=== PATIENT | female | born 1995 | race Caucasian/White ===

== ENCOUNTER 2021-11-10 22:12 | Emergency (ER) | payer MEDICAID, SELFPAY ==
[2021-11-10 22:26] VITALS: BP 138/77; PULSE 88; RESP 18; TEMP 36.6; O2SAT 100; BMI 28.0
[2021-11-10 22:40] LABS: Appearance Urine CLEAR; Color Urine YELLOW; Glucose Urine UA NEG (NEG); Leukocyte Esterase Urine 1+ (NEG); Nitrite Urine NEG (NEG); Specific Gravity - Urine 1.025 (1.005-1.025); UACC Culture Trigger YES; Urine Blood NEG (NEG); Urine Ketones NEG (NEG); Urine Protein NEG (NEG-TRACE)
[2021-11-10 22:48] LABS: UPreg QC Valid YES; Urine Pregnancy POSITIVE (NEGATIVE)
[2021-11-10 22:55] LABS: Bacteria Urine 2+ /LPF; Squamous Epithelial Cell Urine 4+ /LPF; UACC CULT YES
--- NOTE | 2021-11-10 23:35 | ED.NAVMDI ---
HPI - Nausea/Vomiting/Diarrhea General Chief complaint: Nausea/Vomiting/Diarrhea Stated complaint: stomach pain, cant hold food down- constant Time Seen by Provider: 11/10/21 22:57 Source: patient Mode of arrival: ambulatory Limitations: no limitations History of Present Illness HPI Narrative: Patient is a 26 year old female presenting to the emergency department today with nausea. Patient states that she has been having a difficult time keeping food down and things do not seem appetizing. Patient denies any dizziness, lightheadedness, abdominal pain, vomiting, fever, chills, blurry vision, double vision, loss of vision, chest pain, difficulty breathing, shortness of breath, back pain, night sweats, pain with urination, increased urinary frequency, increased urinary urgency, blood in her urine or stool, syncope or a near syncopal episode, recent trauma or falls, bowel incontinence, bladder incontinence, bowel retention, bladder retention, or any other complaints at this time. Patient states that her last menstrual cycle was early Febuary and she is concerned she may be . MD elicited complaint: nausea Onset (ago): day(s) Associated nausea: Yes Associated abdominal pain: No Location of pain: none Exacerbating factors: none Relieving factors: none Related Data Previous Rx's Medication Instructions Recorded ondansetron 4 mg disintegrating 4 mg PO Q8H 3 Days #9 tab 11/10/21 tablet Allergies Allergy/AdvReac Type Severity Reaction Status Date / Time banana [BANANA] Allergy Severe ANAPHYLAXIS Verified 11/10/21 22:26 rissa [RISSA] Allergy Mild HIVES Verified 11/10/21 22:26 pineapple [PINEAPPLE] Allergy Mild HIVES Verified 11/10/21 22:26 PEANUT BUTTER Allergy Severe ANAPHYLAXIS Uncoded 11/10/21 22:26 pineapple, rissa, banana Allergy Unknown hives Uncoded 11/10/21 22:26 Review of Systems Constitutional: Constitutional: Reports no additional constitutional complaints, Denies chills, Denies fever(s) and Denies night sweats Eyes: Eyes: Reports no additional eye complaints, Denies blurry vision, Denies change in vision, Denies diplopia, Denies eye discharge, Denies loss of vision and Denies eye pain ENT: Denies dizziness Cardiovascular: Cardiovascular: Reports no additional cardiovascular complaints, Denies chest pain, Denies lightheadedness, Denies Loss of Consciousness and Denies dyspnea Respiratory: Respiratory: Reports no additional respiratory complaints and Denies dyspnea Gastrointestinal: Gastrointestinal: Reports nausea Genitourinary: Genitourinary: Denies hematuria, Denies urinary frequency, Denies dysuria, Denies urinary incontinence, Denies urinary hesitancy and Denies urinary urgency Musculoskeletal: Musculoskeletal: Reports no additional musculoskeletal complaints, Denies numbness and Denies tingling Neurologic: Denies dizziness, Denies loss of vision, Denies numbness and Denies tingling Psychiatric: Psychiatric: Reports no additional psychiatric complaints Endocrine: Endocrine: Reports no additional endocrine complaints Hematologic/Lymphatic: Hematologic/Lymphatic: Reports no additional hematologic/lymphatic complaints Allergic/Immunologic: Allergic/Immunologic: Reports no additional allergic/immunologic complaints PMFSH Past Medical History Attestation statement: The following information was validated with the patient. Source: old records reviewed Social History Social History Advance Directives: No Physical Exam Vital Signs: Vital Signs: Last Vital Signs Temp 97.8 F 11/10/21 22:26 Pulse 88 11/10/21 22:26 Resp 18 11/10/21 22:26 BP 138/77 11/10/21 22:26 Pulse Ox 100 11/10/21 22:26 BMI result Body Mass Index 28.0 Const: General: cooperative, no acute distress, alert and awake Nutritional Appearance: well nourished Orientation/consciousness: patient oriented x3 Limitations: no limitations HEENT: Head: Yes normal to inspection and Yes atraumatic Ears: hearing grossly normal bilaterally and external ears normal General nose exam: Normal external nose present, no nasal discharge noted and no epistaxis Face and sinus: Yes normal facial exam, No abrasion and No laceration Mouth: Normal oral and palatal mucosa present, no drooling and no muffled voice Eyes: General: appearance normal, both eyes and all related structures Periorbital: periorbital findings normal Eyelids: Yes eyelids normal Conjunctivae: conjunctivae normal Pupils: Equal, round and reactive pupils present EOM: EOMs intact bilaterally Neck: Neck: Yes normal visual inspection, Yes full ROM and Yes no lymphadenopathy Chest: Chest palpation & inspection: normal inspection of the chest Resp: Effort & Inspection: normal respiratory effort and able to speak in complete sentences Auscultation: clear to auscultation bilaterally Cardio: Rate: regular rate Rhythm: regular rhythm GI: Inspection: Yes normal to inspection Palpation (GI): Soft to palpation, not firm, nontender, no guarding and not rigid Neuro: General: patient oriented x3 and moves all extremities Cranial nerves: Yes Equal, round and reactive pupils present Cognition (Neuro): normal cognition Motor exam (neuro): 5/5 motor strength present throughout Sensory Exam: Normal double simultaneous stimulation for sensation Coordination: [id number] test normal Extrem: General: Yes normal to inspection, Yes full ROM and Yes capillary refill normal Psych: Appearance: grossly normal Mental Status: mental status grossly normal Affect: normal affect Attitude: cooperative Thought process: Normal thought process present Thought content: Normal thought content present Insight: Good insight present (Psych) MDM - Nausea/Vomiting/Diarrhea MDM Narrative Medical decision making narrative: Patient is a 26 year old female presenting to the emergency department today with nausea. Patient's physical exam was unremarkable. Patient's urine showed an acute . I explained my physical exam findings as well as all test results to the patient. I answered all questions asked by the patient. I stressed the importance of the patient taking her medication as prescribed. I stressed the importance of the patient following up with her OBGYN and primary care provider. I stressed the importance of the patient returning to the emergency department immediately if her symptoms were to worsen or if she were to develop any dizziness, shortness of breath, difficulty breathing, chest pain, blurry vision, loss of vision, nausea, vomiting, abdominal pain, fever, chills, back pain, or any other complaints. Patient verbalized agreement and understanding with this treatment plan and discharge. Differential Diagnosis Differential diagnosis: Unlikely traveler's diarrhea () Medical Records Attestation: I reviewed the patient's medical records. Lab Data Attestation: I reviewed the patient's lab results. Labs: Lab Results 11/10/21 11/10/21 Range/Units 22:35 22:35 Urine Color YELLOW Urine Appearance CLEAR Urine pH 6.0 (5.0-8.0) Ur Specific [place] 1.025 (1.005-1.025) Urine Protein NEG (NEG-TRACE) MG/DL Urine Glucose (UA) NEG (NEG) MG/DL Urine Ketones NEG (NEG) MG/DL Urine Blood NEG (NEG) Urine Nitrite NEG (NEG) Ur Leukocyte Esterase 1+ H (NEG) Urine RBC 1-4 (0) /HPF Urine WBC 10-14 H (0-4) /HPF Ur Squamous Epith Cells 4+ /LPF Urine Bacteria 2+ /LPF Urine Test POSITIVE H (NEGATIVE) Discharge Plan Discharge Clinical Impression: Patient Disposition: Home, Self-Care Instructions: at 7 to 10 Weeks (ED) Additional Instructions: Follow up with your primary care provider. Return to the emergency department immediately if your symptoms worsen or if you develop any dizziness, shortness of breath, difficulty breathing, chest pain, blurry vision, loss of vision, nausea, vomiting, abdominal pain, fever, chills, back pain, or any other complaints. Prescriptions: New ondansetron 4 mg tablet,disintegrating 4 mg PO Q8H 3 Days Qty: 9 0RF Referrals: Pedro Luis Buckner MD [Primary Care Provider] - 2 days Stand Alone Forms: Work/School Release Print Language: Maltese
[2021-11-10] MEDS: Ondansetron ODT 4 MG TAB.RAPDIS TRANSLINGU (23:52)
== END 2021-11-11 00:04 | disposition home or self-care (01) ==
PROVIDERS: Emergency Provider Internal Medicine; PCP Pediatrics
DX: O21.9 Vomiting of pregnancy, unspecified (principal); R19.7 Diarrhea, unspecified; R10.9 Unspecified abdominal pain; Z3A.08 8 weeks gestation of pregnancy; Z79.899 Other long term (current) drug therapy
CPT/HCPCS: 81001; 81025; 87086; 99283

== ENCOUNTER 2021-12-11 08:35 | Emergency (ER) | payer OTHER, SELFPAY ==
--- NOTE | 2021-12-11 09:08 | ED_ITS ---
HPI - General Adult General Chief complaint: Abdominal Pain Stated complaint: abd pain Time Seen by Provider: 12/11/21 08:49 Source: patient Limitations: no limitations History of Present Illness HPI narrative: This is a 26-year-old female complains of pain in her lower abdomen which began today. The patient's last menstrual period was September 15 and she is not sure if she is . She has had some nausea, denies breast soreness. She has had prior pregnancies. She denies any vomiting. She denies any constipation or diarrhea. She denies any UTI symptoms such as dysuria or urinary frequency. She denies fever. Pain is not worse with turning over or walking Related Data Previous Rx's Medication Instructions Recorded ondansetron 4 mg disintegrating 4 mg PO Q8H 3 Days #9 tab 11/10/21 tablet cephalexin 500 mg capsule 500 mg PO TID #10 cap 12/11/21 prenat.vits,chandler,svx-pzqs-wizdq 1 tab PO DAILY #30 tab 12/11/21 Allergies Allergy/AdvReac Type Severity Reaction Status Date / Time banana [BANANA] Allergy Severe ANAPHYLAXIS Verified 11/10/21 22:26 rissa [RISSA] Allergy Mild HIVES Verified 11/10/21 22:26 pineapple [PINEAPPLE] Allergy Mild HIVES Verified 11/10/21 22:26 PEANUT BUTTER Allergy Severe ANAPHYLAXIS Uncoded 11/10/21 22:26 pineapple, irssa, banana Allergy Unknown hives Uncoded 11/10/21 22:26 Review of Systems Review of Systems: Yes all other systems are reviewed and are negative Constitutional: Constitutional: Reports as per HPI and Denies fever(s) Eyes: Eyes: Reports as per HPI and Reports no additional eye complaints ENT: Reports system reviewed and no additional complaints, except as documented, Reports as per HPI, Denies nasal congestion, Denies nasal discharge and Denies sore throat Cardiovascular: Cardiovascular: Reports as per HPI, Denies chest pain and Denies dyspnea Respiratory: Respiratory: Reports as per HPI, Denies cough and Denies dyspnea Gastrointestinal: Gastrointestinal: Reports as per HPI, Reports abdominal pain, Denies diarrhea, Reports nausea and Denies vomiting Genitourinary: Genitourinary: Reports as per HPI, Denies abnormal vaginal bleeding, Denies hematuria, Denies urinary frequency and Denies dysuria Musculoskeletal: Musculoskeletal: Reports no additional musculoskeletal complaints and Denies numbness Integumentary/Breasts: Skin/Breast: Reports as per HPI and Denies rash Neurologic: Reports as per HPI, Denies focal weakness and Denies numbness Psychiatric: Psychiatric: Reports no additional psychiatric complaints and Reports as per HPI Endocrine: Endocrine: Reports no additional endocrine complaints and Reports as per HPI Hematologic/Lymphatic: Hematologic/Lymphatic: Reports no additional hematologic/lymphatic complaints, Reports as per HPI and Reports other (No peripheral edema) ON LICENSE OF [facility] Past Medical History Medical History (Updated 12/11/21 @ 11:21 by Jose Stuart MD) No known health problems Social History Social History Advance Directives: No Advance Directives Information Provided: Yes Patient : Yes Physical Exam ED Vital Signs: Vital Signs - 24 hr 12/11/21 09:44 Temperature 98.7 F Pulse Rate 97 Respiratory Rate 18 Blood Pressure 106/61 Pulse Oximetry 96 BMI result Body Mass Index 27.2 Const General: no acute distress Orientation/consciousness: patient oriented x3 HENMT Head: Yes normal to inspection General nose exam: Normal external nose present Mouth: moist mucous membranes Throat: Yes posterior oropharynx normal, Yes tonsils normal and Yes uvula midline Eyes Eyelids: Yes eyelids normal Conjunctivae: conjunctivae normal Pupils: Equal, round and reactive pupils present Neck Neck: Yes supple Resp Effort & Inspection: normal respiratory effort Auscultation: clear to auscultation bilaterally Cardio Rate: regular rate Rhythm: regular rhythm Heart sounds: S1 normal heart sound present, S2 normal heart sound present, no gallops, no murmurs and no rubs GI Other: Patient sits up easily, does not appear to have any significant discomfort. Inspection: Yes normal to inspection and No distended Palpation (GI): Soft to palpation and Tenderness to palpation present (GI) (Minimally tender right lower quadrant) Auscultation: normal bowel sounds Skin General skin exam: other (Warm and dry) Neuro General: patient oriented x3 and CN's II-XI intact bilaterally Cranial nerves: Yes Equal, round and reactive pupils present Extrem General: Yes no pedal edema Psych Affect: normal affect Attitude: cooperative Course Course Course Narrative: Bedside ED ultrasound was done and the patient did have an intrauterine with a very active fetus, bouncing around, normal heart rate of 144, no evidence of any fluid collection in the adnexae. Patient likely has discomfort secondary to . Patient suspected she might be based upon her missed period (actually the patient was here at the end of October and diagnosed with at that time, but she did not disclose this initially) and given the ultrasound finding, appears to be in 2nd trimester. Given the findings, patient can follow up with her OBGYN for formal ultrasound, do not suspect ectopic since we have confirmed an IUP. No clinical evidence of appendicitis the patient upon re-evaluation stated that she did have a zoom consultation with her call center support consultant yesterday, is on vitamins, notes that her abdominal pain already feels better, on re-examination has no significant tenderness. The patient is scheduled for a in-person visit with her OBGYN and is to have ultrasound and labs done. The patient has borderline evidence for UTI, though she has no UTI symptoms, will treat with Keflex, urine culture sent Medical Decision Making Lab Data Labs: Lab Results 12/11/21 12/11/21 Range/Units 09:25 09:25 Urine Color YELLOW Urine Appearance HAZY Urine pH 6.5 (5.0-8.0) Ur Specific [place] 1.025 (1.005-1.025) Urine Protein NEG (NEG-TRACE) MG/DL Urine Glucose (UA) NEG (NEG) MG/DL Urine Ketones NEG (NEG) MG/DL Urine Blood NEG (NEG) Urine Nitrite NEG (NEG) Ur Leukocyte Esterase 1+ H (NEG) Urine RBC 0 (0) /HPF Urine WBC 5-9 H (0-4) /HPF Ur Squamous Epith Cells 4+ /LPF Ur Renal Epithelial Cell TRACE /LPF Urine Bacteria 2+ /LPF Urine Test POSITIVE H (NEGATIVE) Discharge Plan Discharge Clinical Impression: , UTI (urinary tract infection) Patient Disposition: Home, Self-Care Instructions: (ED), Urinary Tract Infection in (ED) Additional Instructions: Follow-up with your OBGYN. Take vitamins as prescribed. Return for any worsened symptoms such as progressive abdominal pain, fever, vomiting. Take the antibiotics as prescribed for urinary tract infection. Prescriptions: New prenat.vits,chandler,ewa-muae-onorz Tablet 1 tab PO DAILY Qty: 30 0RF cephalexin 500 mg capsule 500 mg PO TID Qty: 10 0RF No Action ondansetron 4 mg tablet,disintegrating 4 mg PO Q8H 3 Days Qty: 9 0RF Stand Alone Forms: Work/School Release Interventions: ED Discharge Assessment Last Done: 12/11/21 10:46 Discharge Date/Time: 12/11/21 10:54
[2021-12-11 09:40] LABS: Appearance Urine HAZY; Color Urine YELLOW; Glucose Urine UA NEG (NEG); Leukocyte Esterase Urine 1+ (NEG); Nitrite Urine NEG (NEG); PH 6.5 (5.0-8.0); Specific Gravity - Urine 1.025 (1.005-1.025); UACC Culture Trigger YES; Urine Blood NEG (NEG); Urine Ketones NEG (NEG); Urine Protein NEG (NEG-TRACE)
[2021-12-11 09:41] LABS: UPreg QC Valid YES; Urine Pregnancy POSITIVE (NEGATIVE)
[2021-12-11 09:44] VITALS: BP 106/61; PULSE 97; RESP 18; TEMP 37.1; O2SAT 96; BMI 27.2
[2021-12-11 09:49] LABS: Squamous Epithelial Cell Urine 4+ /LPF
[2021-12-11 09:50] LABS: Bacteria Urine 2+ /LPF
[2021-12-11 09:51] LABS: RBC Urine 0 /HPF (0); Renal Epithelial Cells Urine TRACE /LPF
[2021-12-11] MEDS: cephALEXin 500 MG CAPSULE PO (10:37)
== END 2021-12-11 10:54 | disposition home or self-care (01) ==
PROVIDERS: Emergency Provider Emergency Medicine; PCP Pediatrics
DX: O23.42 Unspecified infection of urinary tract in pregnancy, second trimester (principal); R10.30 Lower abdominal pain, unspecified; N39.0 Urinary tract infection, site not specified; Z3A.00 Weeks of gestation of pregnancy not specified; Z79.899 Other long term (current) drug therapy
CPT/HCPCS: 81001; 81025; 87086; 99283

== ENCOUNTER 2022-01-12 12:23 | Emergency (ER) | payer OTHER, SELFPAY ==
[2022-01-12 13:05] VITALS: BP 99/56; PULSE 81; RESP 19; TEMP 36.6; O2SAT 98; BMI 27.6
[2022-01-12 13:53] LABS: Appearance Urine HAZY; Color Urine YELLOW; Glucose Urine UA NEG (NEG); Leukocyte Esterase Urine TRACE (NEG); Nitrite Urine NEG (NEG); Urine Blood NEG (NEG); Urine Ketones 5 MG/DL (NEG); Urine Protein TRACE MG/DL (NEG-TRACE)
[2022-01-12 13:54] LABS: UPreg QC Valid YES; Urine Pregnancy POSITIVE (NEGATIVE)
[2022-01-12 14:09] LABS: Squamous Epithelial Cell Urine 2+ /LPF
[2022-01-12 14:12] LABS: RBC Urine 0 /HPF (0)
[2022-01-12 14:13] LABS: Bacteria Urine 1+ /LPF; Mucus Urine 2+ /LPF
[2022-01-12 14:17] LABS: COVID-19 Test Negative (Negative); IDNOW Serial# 16C4AD1C; Influenza A Negative (Negative); Influenza B2 Negative (Negative)
== END 2022-01-12 20:47 | disposition left against medical advice (07) ==
PROVIDERS: Emergency Provider Emergency Medicine; PCP Pediatrics
DX: O26.892 Other specified pregnancy related conditions, second trimester (principal); R51.9 Headache, unspecified; Z3A.17 17 weeks gestation of pregnancy; Z20.822 Contact with and (suspected) exposure to COVID-19
CPT/HCPCS: 81001; 81025; 87086; 87088; 87186; 87502; 87635; 99283

== ENCOUNTER 2022-02-07 15:13 | Emergency (ER) | payer OTHER, SELFPAY ==
--- NOTE | ~2022-02-07 | US_ITS ---
EXAMINATION: US OBSTETRICAL ULTRASOUND CLINICAL INFORMATION: , fall with abdominal pain. COMPARISON: None. LMP: 09/15/2021. Gestational age by maternal dates is 20 weeks 5 days. Estimated date of delivery by maternal dates is 06/22/2022. TECHNIQUE: Routine transabdominal imaging of pelvis is performed. FINDINGS: There is a single intrauterine gestational sac with visible yolk sac, embryo/fetus, and cardiac activity. There is no significant subchorionic hemorrhage or hematoma. HR: 158 beats per minute. anatomy: There is normal visualization of kidneys, bladder, stomach and a four-chamber heart. There is trace fullness in the kidneys but within normal range. measurements: Biparietal diameter measures 4.32 cm corresponding 19 weeks 1 day, Occipital frontal diameter measures 5.88 seen corresponding 20 weeks 2 days, Head circumference measures 16.47 cm corresponding to 19 weeks 2 days, Abdominal circumference measures 14.45 cm corresponding to 19 weeks and 6 days. Femoral length measures 3.01 cm corresponding to 19 weeks 3 days. The composite ultrasound gestational age based on measurements is 19 weeks 3 days. Based on ultrasound measurements the MARI is 07/01/2022 The cervix is closed measuring 3.50 cm in length. No subchorionic bleed seen. MATERNAL ADNEXA: The right maternal ovary measures 2.40 x 1.82 x 1.11 cm. It appears unremarkable. The left maternal ovary is not visualized There is no significant maternal adnexal mass. No maternal pelvic ascites. US/US OB pelvic and transvaginal IMPRESSION: 1. Single intrauterine gestation with ultrasound gestational age of 19 weeks and 3 days +/- 4 days. 2. Estimated date of delivery is 07/01/2022 +/- 4 days. 3. No maternal adnexal mass or pelvic ascites.
[2022-02-07 15:22] VITALS: BP 99/48; PULSE 105; RESP 20; TEMP 36.6; O2SAT 98; BMI 28.5
--- NOTE | 2022-02-07 15:57 | ED.ABDPAIN ---
HPI - Abdominal Pain General Chief Complaint: Abdominal Pain Stated Complaint: 20 wks preg/Fall/abd pain Time Seen by Provider: 02/07/22 15:31 Source: patient Mode of arrival: ambulatory Limitations: no limitations History of Present Illness HPI narrative: Confer old female A2 currently around 20 weeks complaining of abdominal pain status post trip and fall onto her abdomen. Patient tells me she was with her other children playing outside, she tripped and fell right onto her abdomen and into a kiddie pool. Patient reports pain to the abdomen particularly the left upper quadrant, patient tells me that she usually feels her baby moving often however since the injury she has not felt movement. She reports the pain is 7/10, constant. She denies any vaginal bleeding, nausea, vomiting, fevers, chills, chest pain, shortness of breath. Patient is followed by [facility]BGY[facility]ina HEALY elicited complaint: abdominal pain Pertinent past history: none Onset (ago): hour(s) (2) Pain Consistency: constant Location: LLQ Severity: moderate Pain scale (0-10): 7 Quality: cramping Radiation: none Migration to: no migration Exacerbating factors: nothing Relieving factors: nothing Associated symptoms: denies other symptoms Related Data Previous Rx's Medication Instructions Recorded ondansetron 4 mg disintegrating 4 mg PO Q8H 3 days #9 tabs 11/10/21 tablet cephalexin 500 mg capsule 500 mg PO TID #10 caps 12/11/21 prenat.vits,chandler,puq-doxw-kktwm 1 tab PO DAILY #30 tabs 12/11/21 Allergies Allergy/AdvReac Type Severity Reaction Status Date / Time banana [BANANA] Allergy Severe ANAPHYLAXIS Verified 11/10/21 22:26 rissa [RISSA] Allergy Mild HIVES Verified 11/10/21 22:26 pineapple [PINEAPPLE] Allergy Mild HIVES Verified 11/10/21 22:26 PEANUT BUTTER Allergy Severe ANAPHYLAXIS Uncoded 11/10/21 22:26 pineapple, rissa, banana Allergy Unknown hives Uncoded 11/10/21 22:26 Review of Systems Review of Systems Constitutional : No Weight loss, No Fever, No Chills, No Fatigue, No Malaise ENT/Mouth : No sore throat, No Rhinorrhea Eyes: No Eye Pain, No Swelling, No Redness Cardiovascular : No Chest Pain, No SOB, No Dyspnea on Exertion, No Orthopnea, No Edema, No Palpitations Respiratory : No Cough, No Sputum, No Wheezing Gastrointestinal : No Nausea, No Vomiting, No Diarrhea, No Constipation, No abdominal Pain, No Hematochezia, No Melena Genitourinary : No Dysuria, No Urinary Frequency, No Hematuria, Musculoskeletal : No joint pain, No Myalgias, No Joint Swelling Skin : No Skin Lesions, No rash Neuro : No Weakness, No Numbness, No Dizziness, No Headache Psych : No Anxiety/Panic, No Depression All other systems reviewed and are negative [facility] Past Medical History Attestation statement: The following information was validated with the patient. Source: old records reviewed and nursing notes reviewed Medical History No known health problems Social History Social History Advance Directives: No Advance Directives Information Provided: No Physical Exam ED Vital Signs: Vital Signs - 24 hr 02/07/22 15:22 02/07/22 16:32 Temperature 97.8 F 98.2 F Pulse Rate 105 H 94 Respiratory Rate 20 18 Blood Pressure 99/48 L 118/74 Pulse Oximetry 98 98 Oxygen Delivery Method Room Air Room Air BMI result Body Mass Index 28.5 VSS Appearance: Alert.? Oriented X3.? No acute distress.? Head: Normocephalic, atraumatic, no step-offs or deformities Eyes: Pupils equal, round and reactive to light.? ENT: Pharynx normal.? Neck: Normal inspection.? Neck supple.? CVS: Normal heart rate and rhythm.? Pulses normal.? Respiratory: No respiratory distress.? Breath sounds normal.? Abdomen: Soft and + slightly tender to LUQ no evidence of acute trauma.? Skin: Skin warm and dry.? Normal skin color.? Normal skin turgor.? Extremities: No lower extremity edema.? No calf ttp. 5/5 strength to bilateral upper and lower extremities Back: No midline tenderness, no C-spine tenderness, full range of motion, no CVA tenderness bilaterally Neuro: Oriented X 3.? No motor deficit.? No sensory deficit. CN 2-12 intact Course Reevaluation(s) Reevaluation #1: US shows normal fetus, normal placenta, no subchorionic bleed, heart rate 158. This was interpreted by we are in down time therefore images/ reports not transferring over. Time: 16:13 Reevaluation #2: CBC appears to be around patient's baseline. No acute electrolyte abnormalities require intervention. Urine clean. COVID negative. Time: 18:06 Reevaluation #3: Calling to discuss this case with [facility]. However upon my re-examination patient is no longer tender on palpation, feeling better. Patient appears much better. Time: 18:50 Additional Reevaluation(s): Spoke to Dr. Zimmerman discuss this case with him. He tells me that she is currently 20 weeks and previable, he recommends that if she starts experiencing severe abdominal pain or vaginal bleeding to report to the emergency department immediately. At this time patient will be discharged home with prompt PCP and OBGYN follow-up. Educated her on worrisome signs and symptoms and when to return. At this time I feel comfortable discharge home MDM - Abdominal Pain MDM Narrative Medical decision making narrative: 1603 26 yo f 20 weeks preg presents w/ trip and fall onto abdomen. A2. Followed by [facility]. Reports she hasnt felt movment since injury Physical examination significant for slight tenderness to the left upper quadrant, no evidence of trauma on exam. I immediately obtain heart tones on this patient around [id number]. Located in the left lower quadrant right above the pubic symphysis. Patient is slightly anxious and tearful. Ultrasound immediately called to the bedside. Plan at this time is basic labs, hCG, ultrasound, heart tones. Will rule out demise. Medical Records Attestation: I reviewed the patient's medical records. Lab Data Attestation: I reviewed the patient's lab results. Result diagrams: 02/07/22 17:03 02/07/22 16:35 Labs: Lab Results 02/07/22 02/07/22 02/07/22 Range/Units 16:35 16:35 16:36 WBC (4.8-10.8) X10*3/uL RBC (4.20-5.50) X10*6/uL Hgb (12.0-16.0) g/dl Hct (37.0-47.0) % MCV (80.0-98.0) fL MCH (27.0-33.0) pg MCHC (31.0-35.0) g/dl RDW (11.0-16.0) % Plt Count (160-400) X10*3/uL MPV (9.4-12.3) fL Immature Gran % (Auto) (0.0-0.4) % Neut % (Auto) (45-73) % Lymph % (Auto) (20-40) % [place] % (Auto) (2-11) % Eos % (Auto) (0-4) % Baso % (Auto) (0-2) % Lymph # (Auto) (1.2-4.9) X10*3/uL [place] # (Auto) (0.1-1.2) X10*3/uL Eos # (Auto) (0.0-0.4) X10*3/uL Baso # (Auto) (0.0-0.2) X10*3/uL Abs Immat Gran (auto) (0.00-0.03) X10*3/uL Absolute Neuts (auto) (2.0-8.3) x10*3/uL Absolute Nucleated RBC (0.0-0.012) X10*3/uL Nucleated RBC % (auto) (0.0-0.2) /100WBC Sodium 137 Cancelled (135-145) mmol/L Potassium 4.5 Cancelled (3.3-5.1) mmol/L Chloride 108 Cancelled (96-108) mmol/L Carbon Dioxide 19 L Cancelled (22-29) mmol/L Anion Gap 15 Cancelled (12-20) BUN 7 L Cancelled (9-16) mg/dL Creatinine 0.67 Cancelled (0.5-1.4) mg/dL Estim Creat Clear Calc 105.2 Cancelled Estimated GFR > 60 Cancelled Random Glucose 94 Cancelled (60-115) mg/dL Calcium 8.7 Cancelled (8.4-10.2) mg/dL Magnesium 1.8 Cancelled (1.6-2.6) mg/dL Total Bilirubin 0.2 Cancelled (0.0-1.0) mg/dL AST 24 Cancelled (5-31) U/L ALT 18 Cancelled (0-31) U/L Alkaline Phosphatase 125 H Cancelled (39-117) U/L Total Protein 6.6 Cancelled (6.5-8.0) g/dL Albumin 3.4 L Cancelled (3.5-5.0) g/dL Beta HCG, Quant 18314 mIU/mL Urine Color Urine Appearance Urine pH (5.0-8.0) Ur Specific [place] (1.005-1.025) Urine Protein (NEG-TRACE) MG/DL Urine Glucose (UA) (NEG) MG/DL Urine Ketones (NEG) MG/DL Urine Blood (NEG) Urine Nitrite (NEG) Ur Leukocyte Esterase (NEG) COVID-19 (MAGUI) Negative (Negative) COVID-19 Clin Com See Note 02/07/22 02/07/22 Range/Units 16:36 17:03 WBC 13.2 H (4.8-10.8) X10*3/uL RBC 3.75 L (4.20-5.50) X10*6/uL Hgb 9.1 L (12.0-16.0) g/dl Hct 28.9 L (37.0-47.0) % MCV 77.1 L (80.0-98.0) fL MCH 24.3 L (27.0-33.0) pg MCHC 31.5 (31.0-35.0) g/dl RDW 15.9 (11.0-16.0) % Plt Count 277 (160-400) X10*3/uL MPV 11.8 (9.4-12.3) fL Immature Gran % (Auto) 0.5 H (0.0-0.4) % Neut % (Auto) 75.0 H (45-73) % Lymph % (Auto) 16.7 L (20-40) % [place] % (Auto) 4.9 (2-11) % Eos % (Auto) 2.7 (0-4) % Baso % (Auto) 0.2 (0-2) % Lymph # (Auto) 2.2 (1.2-4.9) X10*3/uL [place] # (Auto) 0.7 (0.1-1.2) X10*3/uL Eos # (Auto) 0.4 (0.0-0.4) X10*3/uL Baso # (Auto) 0.0 (0.0-0.2) X10*3/uL Abs Immat Gran (auto) 0.07 H (0.00-0.03) X10*3/uL Absolute Neuts (auto) 9.9 H (2.0-8.3) x10*3/uL Absolute Nucleated RBC 0.000 (0.0-0.012) X10*3/uL Nucleated RBC % (auto) 0.0 (0.0-0.2) /100WBC Sodium (135-145) mmol/L Potassium (3.3-5.1) mmol/L Chloride (96-108) mmol/L Carbon Dioxide (22-29) mmol/L Anion Gap (12-20) BUN (9-16) mg/dL Creatinine (0.5-1.4) mg/dL Estim Creat Clear Calc Estimated GFR Random Glucose (60-115) mg/dL Calcium (8.4-10.2) mg/dL Magnesium (1.6-2.6) mg/dL Total Bilirubin (0.0-1.0) mg/dL AST (5-31) U/L ALT (0-31) U/L Alkaline Phosphatase (39-117) U/L Total Protein (6.5-8.0) g/dL Albumin (3.5-5.0) g/dL Beta HCG, Quant mIU/mL Urine Color YELLOW Urine Appearance CLEAR Urine pH 7.0 (5.0-8.0) Ur Specific [place] 1.015 (1.005-1.025) Urine Protein NEG (NEG-TRACE) MG/DL Urine Glucose (UA) NEG (NEG) MG/DL Urine Ketones NEG (NEG) MG/DL Urine Blood NEG (NEG) Urine Nitrite NEG (NEG) Ur Leukocyte Esterase NEG (NEG) COVID-19 (MAGUI) (Negative) COVID-19 Clin Com Critical Care Time Critical Care Time Critical Care Time: No Discharge Plan Discharge Clinical Impression: , Abdominal pain Patient Disposition: Home, Self-Care Instructions: Abdominal Pain (ED), at 19 to 22 Weeks (ED) Additional Instructions: Take your medications as prescribed. If you were prescribed antibiotics today, it is important that you take your medication to their entirety, do not skip any doses, do not finish them early. Follow-up with your primary care provider this week. Return to the emergency department with new or worsening symptoms. Such as fevers, chills, chest pain, shortness of breath, nausea, vomiting, dizziness, headache, vision changes, lethargy, vaginal bleeding, severe abdominal pain In case of emergency call 911 Please follow-up with your OBGYN as soon as possible. US/US OB pelvic and transvaginal IMPRESSION: 1. Single intrauterine gestation with ultrasound gestational age of? 19 weeks and 3 days +/- 4 days. 2. Estimated date of delivery is 07/01/2022 +/- 4 days. 3. No maternal adnexal mass or pelvic ascites. Prescriptions: No Action prenat.vits,chandler,fgn-ebrz-upare Tablet 1 tab PO DAILY Qty: 30 0RF cephalexin 500 mg capsule 500 mg PO TID Qty: 10 0RF ondansetron 4 mg tablet,disintegrating 4 mg PO Q8H 3 Days Qty: 9 0RF Referrals: Physician,Unknown J [Primary Care Provider] - 2 days Stand Alone Forms: Work/School Release
[2022-02-07 16:32] VITALS: BP 118/74; PULSE 94; RESP 18; TEMP 36.8; O2SAT 98
[2022-02-07 16:42] LABS: Appearance Urine CLEAR; Color Urine YELLOW; Glucose Urine UA NEG (NEG); Leukocyte Esterase Urine NEG (NEG); Nitrite Urine NEG (NEG); Specific Gravity - Urine 1.015 (1.005-1.025); Urine Blood NEG (NEG); Urine Ketones NEG (NEG); Urine Protein NEG (NEG-TRACE)
[2022-02-07 17:03] LABS: Alanine Aminotransferase 18 U/L (0-31); Albumin Level 3.4 g/dL (3.5-5.0); Alkaline Phosphatase 125 U/L (39-117); Anion Gap 15 (12-20); Aspartate Amino Transferase 24 U/L (5-31); Bilirubin Total 0.2 mg/dL (0.0-1.0); Blood Urea Nitrogen 7 mg/dL (9-16); Calcium 8.7 mg/dL (8.4-10.2); Carbon Dioxide 19 mmol/L (22-29); Chloride 108 mmol/L (96-108); Creatinine Clr Calc Pharmacy 105.2; Estimated Glomerular Filt Rate > 60; Glucose Random 94 mg/dL (60-115); Magnesium 1.8 mg/dL (1.6-2.6); Potassium 4.5 mmol/L (3.3-5.1); Sodium 137 mmol/L (135-145); Total Protein 6.6 g/dL (6.5-8.0)
[2022-02-07 17:05] LABS: COVID-19 Test Negative (Negative); IDNOW Serial# 16C4AD1C
[2022-02-07 17:10] LABS: HCG Quantitative 10181 mIU/mL
[2022-02-07 17:15] LABS: Basophils Percent Auto 0.2 % (0-2); Eosinophils Absolute Auto 0.4 X10*3/uL (0.0-0.4); Eosinophils Percent Auto 2.7 % (0-4); Hematocrit 28.9 % (37.0-47.0); Hemoglobin 9.1 g/dl (12.0-16.0); Imm Gran Abs Auto 0.07 X10*3/uL (0.00-0.03); Imm Gran Pct Auto 0.5 % (0.0-0.4); Lymphocytes Absolute Auto 2.2 X10*3/uL (1.2-4.9); Lymphocytes Percent Auto 16.7 % (20-40); Mean Corpuscular HGB Conc 31.5 g/dl (31.0-35.0); Mean Corpuscular Hemoglobin 24.3 pg (27.0-33.0); Mean Corpuscular Volume 77.1 fL (80.0-98.0); Mean Platelet Volume 11.8 fL (9.4-12.3); Monocytes Absolute Auto 0.7 X10*3/uL (0.1-1.2); Monocytes Percent Auto 4.9 % (2-11); Neutrophils Absolute Auto 9.9 x10*3/uL (2.0-8.3); Platelet Count 277 X10*3/uL (160-400); Red Blood Count 3.75 X10*6/uL (4.20-5.50); Red Cell Distribution Width 15.9 % (11.0-16.0); White Blood Count 13.2 X10*3/uL (4.8-10.8)
[2022-02-07 17:37] LABS: MANUAL DIFF FLAG NO
== END 2022-02-07 19:36 | disposition home or self-care (01) ==
PROVIDERS: Physician Assistant; Emergency Provider Emergency Medicine Emergency Medical Services
DX: O26.892 Other specified pregnancy related conditions, second trimester (principal); R10.32 Left lower quadrant pain; Z3A.20 20 weeks gestation of pregnancy; Z91.81 History of falling; Z20.822 Contact with and (suspected) exposure to COVID-19
CPT/HCPCS: 36415; 76801; 76817; 80053; 81003; 83735; 84702; 85025; 87635; 99283; 99284

== ENCOUNTER 2022-03-22 09:31 | Emergency (ER) | payer OTHER, SELFPAY ==
[2022-03-22 10:18] VITALS: BP 115/70; PULSE 93; RESP 18; TEMP 36.2; O2SAT 98; BMI 29.2
--- NOTE | 2022-03-22 10:44 | ED_ITS ---
HPI - General Adult General Chief complaint: General Medical Stated complaint: Abd pain/Vomiting Time Seen by Provider: 03/22/22 10:44 Source: patient Mode of arrival: ambulatory Limitations: no limitations History of Present Illness HPI narrative: 26 yo 25 weeks gestation presented c/o abdominal cramps on off since Tuesday,denies vaginal bleeding Onset (ago): day(s) (2) Location: abdomen Radiation: non-radiation Severity: moderate Quality: burning Pain Consistency: constant Exacerbating factors: none Associated symptoms: denies other symptoms Related Data Previous Rx's Medication Instructions Recorded ondansetron 4 mg disintegrating 4 mg PO Q8H 3 days #9 tabs 11/10/21 tablet cephalexin 500 mg capsule 500 mg PO TID #10 caps 12/11/21 prenat.vits,chandler,npa-gsyp-rjhee 1 tab PO DAILY #30 tabs 12/11/21 Allergies Allergy/AdvReac Type Severity Reaction Status Date / Time banana [BANANA] Allergy Severe ANAPHYLAXIS Verified 03/22/22 10:22 rissa [RISSA] Allergy Mild HIVES Verified 03/22/22 10:22 pineapple [PINEAPPLE] Allergy Mild HIVES Verified 03/22/22 10:22 PEANUT BUTTER Allergy Severe ANAPHYLAXIS Uncoded 03/22/22 10:22 pineapple, rissa, banana Allergy Unknown hives Uncoded 03/22/22 10:22 Review of Systems Review of Systems: Yes all other systems are reviewed and are negative Eyes: Eyes: Reports no additional eye complaints ENT: Reports system reviewed and no additional complaints, except as documented Cardiovascular: Cardiovascular: Reports no additional cardiovascular com plaints PMFSH Past Medical History Medical History No known health problems Social History Social History Advance Directives: No Advance Directives Information Provided: Yes Physical Exam ED Vital Signs: Vital Signs - 24 hr 03/22/22 10:18 Temperature 97.2 F Pulse Rate 93 Respiratory Rate 18 Blood Pressure 115/70 Pulse Oximetry 98 Oxygen Delivery Method Room Air BMI result Body Mass Index 29.2 Const General: cooperative, healthy appearing, comfortable, no acute distress and well developed Nutritional Appearance: average body habitus and well nourished Orientation/consciousness: patient oriented x3 Limitations: no limitations [facility] Head: Yes normal to inspection Ears: external ears normal Face and sinus: Yes normal facial exam Mouth: Normal oral and palatal mucosa present Neck Neck: Yes normal visual inspection and Yes full ROM Chest Chest palpation & inspection: normal inspection of the chest Resp Effort & Inspection: normal respiratory effort Auscultation: clear to auscultation bilaterally Cardio Jugular venous distension: no JVD Rate: regular rate Rhythm: regular rhythm GI Inspection: Yes normal to inspection Palpation (GI): Soft to palpation, not firm and nontender Skin General skin exam: no rashes or lesions noted and elasticity normal Lesions: no lesions Rashes: no rashes Neuro General: patient oriented x3 Cranial nerves: Yes CN's II-XII intact bilaterally Course Reevaluation(s) Reevaluation #1: Spoke with Dr Thayer reccomemartínez transfer to [facility] to r/o premature labor. heart rate 140 Reevaluation #2: Spoke with [facility] Dr Dailey ,they will call me back Reevaluation #3: Accepted in transfer to [facility] OB service Medical Decision Making Lab Data Result diagrams: 03/22/22 11:00 03/22/22 11:00 Labs: Lab Results 03/22/22 03/22/22 03/22/22 Range/Units 10:57 11:00 11:00 WBC 12.9 H (4.8-10.8) X10*3/uL RBC 4.11 L (4.20-5.50) X10*6/uL Hgb 9.7 L (12.0-16.0) g/dl Hct 31.4 L (37.0-47.0) % MCV 76.4 L (80.0-98.0) fL MCH 23.6 L (27.0-33.0) pg MCHC 30.9 L (31.0-35.0) g/dl RDW 14.9 (11.0-16.0) % Plt Count 306 (160-400) X10*3/uL MPV 11.7 (9.4-12.3) fL Immature Gran % (Auto) 0.7 H (0.0-0.4) % Neut % (Auto) 74.8 H (45-73) % Lymph % (Auto) 17.5 L (20-40) % [place] % (Auto) 5.7 (2-11) % Eos % (Auto) 1.0 (0-4) % Baso % (Auto) 0.3 (0-2) % Lymph # (Auto) 2.3 (1.2-4.9) X10*3/uL [place] # (Auto) 0.7 (0.1-1.2) X10*3/uL Eos # (Auto) 0.1 (0.0-0.4) X10*3/uL Baso # (Auto) 0.0 (0.0-0.2) X10*3/uL Abs Immat Gran (auto) 0.09 H (0.00-0.03) X10*3/uL Absolute Neuts (auto) 9.6 H (2.0-8.3) x10*3/uL Absolute Nucleated RBC 0.000 (0.0-0.012) X10*3/uL Nucleated RBC % (auto) 0.0 (0.0-0.2) /100WBC Sodium 136 (135-145) mmol/L Potassium 4.4 (3.3-5.1) mmol/L Chloride 106 (96-108) mmol/L Carbon Dioxide 19 L (22-29) mmol/L Anion Gap 15 (12-20) BUN 7 L (9-16) mg/dL Creatinine 0.64 (0.5-1.4) mg/dL Estim Creat Clear Calc 111.7 Estimated GFR > 60 Random Glucose 93 (60-115) mg/dL Calcium 8.7 (8.4-10.2) mg/dL Total Bilirubin 0.4 (0.0-1.0) mg/dL AST 17 (5-31) U/L ALT 6 (0-31) U/L Alkaline Phosphatase 157 H D (39-117) U/L Total Protein 7.3 (6.5-8.0) g/dL Albumin 3.6 (3.5-5.0) g/dL COVID-19 (MAGUI) Positive A (Negative) COVID-19 Clin Com See Note Discharge Plan Discharge Clinical Impression: Abdominal pain affecting , COVID-19 Patient Disposition: er [facility] Transfer Details: [facility] requested by Dr Thayer Instructions: Abdominal Pain in (ED), COVID-19 (Coronavirus Disease 2019) (ED) Prescriptions: No Action prenat.vits,chandler,xip-fxeb-[id number] Tablet 1 tab PO DAILY Qty: 30 0RF cephalexin 500 mg capsule 500 mg PO TID Qty: 10 0RF ondansetron 4 mg tablet,disintegrating 4 mg PO Q8H 3 Days Qty: 9 0RF Interventions: Acute Care Transfer Worksheet (ED) Last Done: 03/22/22 15:32 Discharge Date/Time: 03/22/22 15:33
--- NOTE | 2022-03-22 10:47 | PC.NURSE ---
Heart Rate via doppler: 140 Pt reports that she is 25 weeks , + movement, states he moves around like crazy! . This RN & spoke with (OBGYN) who advised for transfer to [facility] to rule out pre-term labor and for monitoring due to complaints of abdominal pain and diarrhea.
[2022-03-22 11:12] LABS: MANUAL DIFF FLAG NO
[2022-03-22 11:18] LABS: Basophils Percent Auto 0.3 % (0-2); Eosinophils Absolute Auto 0.1 X10*3/uL (0.0-0.4); Hematocrit 31.4 % (37.0-47.0); Hemoglobin 9.7 g/dl (12.0-16.0); Imm Gran Abs Auto 0.09 X10*3/uL (0.00-0.03); Imm Gran Pct Auto 0.7 % (0.0-0.4); Lymphocytes Absolute Auto 2.3 X10*3/uL (1.2-4.9); Lymphocytes Percent Auto 17.5 % (20-40); Mean Corpuscular HGB Conc 30.9 g/dl (31.0-35.0); Mean Corpuscular Hemoglobin 23.6 pg (27.0-33.0); Mean Corpuscular Volume 76.4 fL (80.0-98.0); Mean Platelet Volume 11.7 fL (9.4-12.3); Monocytes Absolute Auto 0.7 X10*3/uL (0.1-1.2); Monocytes Percent Auto 5.7 % (2-11); Neutrophils Absolute Auto 9.6 x10*3/uL (2.0-8.3); Neutrophils Percent Auto 74.8 % (45-73); Platelet Count 306 X10*3/uL (160-400); Red Blood Count 4.11 X10*6/uL (4.20-5.50); Red Cell Distribution Width 14.9 % (11.0-16.0); White Blood Count 12.9 X10*3/uL (4.8-10.8)
[2022-03-22 11:24] LABS: COVID-19 Test Positive (Negative)
[2022-03-22 11:32] LABS: Alanine Aminotransferase 6 U/L (0-31); Albumin Level 3.6 g/dL (3.5-5.0); Alkaline Phosphatase 157 U/L (39-117); Anion Gap 15 (12-20); Aspartate Amino Transferase 17 U/L (5-31); Bilirubin Total 0.4 mg/dL (0.0-1.0); Blood Urea Nitrogen 7 mg/dL (9-16); Calcium 8.7 mg/dL (8.4-10.2); Carbon Dioxide 19 mmol/L (22-29); Chloride 106 mmol/L (96-108); Creatinine Clr Calc Pharmacy 111.7; Estimated Glomerular Filt Rate > 60; Glucose Random 93 mg/dL (60-115); Potassium 4.4 mmol/L (3.3-5.1); Sodium 136 mmol/L (135-145); Total Protein 7.3 g/dL (6.5-8.0)
[2022-03-22] MEDS: 0.9 % Sodium Chloride 1,000 ML 999 ML IVCONT (12:14)
--- NOTE | 2022-03-22 14:36 | PC.NURSE ---
[facility]
== END 2022-03-22 15:33 | disposition short-term general hospital (02) ==
PROVIDERS: Emergency Provider Emergency Medicine; PCP Pediatrics
DX: O98.512 Other viral diseases complicating pregnancy, second trimester (principal); U07.1 COVID-19; O26.892 Other specified pregnancy related conditions, second trimester; R10.9 Unspecified abdominal pain; Z3A.25 25 weeks gestation of pregnancy
CPT/HCPCS: 36415; 80053; 85025; 87635; 96360; 96361; 99285

== ENCOUNTER 2022-05-08 01:47 | Emergency (ER) | payer OTHER, SELFPAY ==
--- NOTE | ~2022-05-08 | XR_ITS ---
EXAMINATION: XR CHEST CLINICAL INFORMATION: Cough COMPARISON: None TECHNIQUE: Frontal view of the chest was obtained. FINDINGS: The lungs are well expanded. There is no focal consolidation, edema, or effusion. No pneumothorax. The cardiomediastinal silhouette is within normal limits. No acute osseous abnormality. XR/XR chest 1V IMPRESSION: Clear lungs.
[2022-05-08 02:04] VITALS: BP 104/65; PULSE 122; RESP 20; TEMP 37.4; O2SAT 98; BMI 29.2
[2022-05-08 02:23] LABS: COVID-19 Test Negative (Negative)
[2022-05-08 05:51] VITALS: BP 122/61; PULSE 100; RESP 18; TEMP 37.4; O2SAT 98
== END 2022-05-08 08:26 | disposition left against medical advice (07) ==
PROVIDERS: Emergency Provider Emergency Medicine
DX: R06.02 Shortness of breath (principal); R05.9 Cough, unspecified; Z20.822 Contact with and (suspected) exposure to COVID-19
CPT/HCPCS: 71045; 87635; 99282; 99283

== ENCOUNTER 2022-05-13 00:08 | Emergency (ER) | payer OTHER, SELFPAY ==
[2022-05-13 00:59] VITALS: BP 115/62; PULSE 89; RESP 18; TEMP 37.2; O2SAT 98; BMI 30.9
[2022-05-13 01:20] LABS: Strep A Nucleic Acid Negative (Negative)
[2022-05-13 01:49] VITALS: BP 107/61; PULSE 78; RESP 18; TEMP 36.7; O2SAT 98
[2022-05-13 06:06] VITALS: BP 111/60; PULSE 87; RESP 18; TEMP 36.8; O2SAT 98
--- NOTE | 2022-05-13 08:13 | ED.GENADULT ---
HPI - General Adult General Chief complaint: General Medical Stated complaint: sore throat, mucus in ear? Time Seen by Provider: 05/13/22 07:58 Source: patient Mode of arrival: ambulatory Limitations: no limitations History of Present Illness HPI narrative: 27 yo female who is currently 8 months presents to the ER with sore throat x1 week as well as left sided ear pain over the last few days. Her young son was sick last week but his illness resolved fairly quickly. Patient also reports a slight dry cough and some nasal congestion as well. She denies chest pain, fevers, N/V/D or abdominal pain. Normal activity without any cramping or bleeding. She had COVID last month. MD complaint: sore throat & left ear pain Onset (ago): week(s) (1) Location: head, face and mouth Radiation: non-radiation Severity: moderate Severity scale (1-10): 5 Quality: aching Pain Consistency: constant Relieving factors: none Exacerbating factors: eating Associated symptoms: cough and malaise Treatments prior to arrival: none Related Data Previous Rx's Medication Instructions Recorded ondansetron 4 mg disintegrating 4 mg PO Q8H 3 days #9 tabs 11/10/21 tablet cephalexin 500 mg capsule 500 mg PO TID #10 caps 12/11/21 prenat.vits,chandler,pwx-diws-xjfel 1 tab PO DAILY #30 tabs 12/11/21 Allergies Allergy/AdvReac Type Severity Reaction Status Date / Time banana [BANANA] Allergy Severe ANAPHYLAXIS Verified 03/22/22 10:22 rissa [RISSA] Allergy Mild HIVES Verified 03/22/22 10:22 pineapple [PINEAPPLE] Allergy Mild HIVES Verified 03/22/22 10:22 PEANUT BUTTER Allergy Severe ANAPHYLAXIS Uncoded 03/22/22 10:22 pineapple, rissa, banana Allergy Unknown hives Uncoded 03/22/22 10:22 Review of Systems Review of Systems: Constitutional: No Fever, No Chills ENT/Mouth: + sore throat, No Rhinorrhea, No Swallowing Difficulty, +Otalgia, No ear drainage, No hearing loss Eyes: No Eye Pain, No Swelling, No Redness Cardiovascular: No Chest Pain, No SOB, No Orthopnea, No Edema Respiratory: No Cough, No Sputum, No Wheezing, No dyspnea Gastrointestinal: No Nausea, No Vomiting, No Diarrhea, No abdominal Pain Genitourinary: No Dysuria, No Urinary Frequency, No Hematuria Musculoskeletal: No joint pain, No Myalgias Skin: No Skin Lesions, No rash Neuro: No Weakness, No Numbness, No Dizziness, + Headache Psych: No Anxiety/Panic, No Depression Heme/Lymph: No Bruising, No Lymphadenopathy PMFSH Past Medical History Medical History No known health problems Social History Social History Advance Directives: No Physical Exam ED Vital Signs: Vital Signs - 24 hr 05/13/22 00:59 05/13/22 01:49 05/13/22 06:06 Temperature 98.9 F 98.0 F 98.3 F Pulse Rate 89 78 87 Respiratory Rate 18 18 18 Blood Pressure 115/62 107/61 111/60 Pulse Oximetry 98 98 98 Oxygen Delivery Method Room Air Room Air Room Air BMI result Body Mass Index 30.9 Appearance: Alert. Oriented X3. No acute distress. Eyes: Pupils equal, round and reactive to light. ENT: Pharynx with mild generalized erythema, no tonsillar exudate or swelling. normal voice and handling secretions normally. Normal TMs bilaterally Neck: Normal inspection. Neck supple. CVS: Normal heart rate and rhythm. Pulses normal. Respiratory: No respiratory distress. Breath sounds normal. Abdomen: Gravid uterus to between umbilicus and ribs, nontender, normal +BS x4 Skin: Skin warm and dry. Normal skin color. Normal skin turgor. No rashes. Extremities: No lower extremity edema. Neuro: Oriented X 3. Grossly normal. Course Course Course Narrative: 27 yo female who is 8 months presents to the ER with sore throat and left ear pain. Her exam is benign and her VS are WNL. Her symptoms are most likely viral. Supportive care and symptomatic relief discussed. Stable for d/c home with follow up with her OB. Patient agrees with plan. Medical Decision Making Lab Data Labs: Lab Results 05/13/22 Range/Units 01:07 S. pyogenes GrpA PRINCESS Negative (Negative) Discharge Plan Discharge Clinical Impression: Viral URI Patient Disposition: Home, Self-Care Instructions: Upper Respiratory Infection (ED) Additional Instructions: You are negative for Strep throat. You do not have an ear infection. Continue to take Tylenol every 6 hours as needed for pain. Rest and drink plenty of fluids. You can use over the counter cough drops to ease throat pain as well. Follow up with your OB. If you develop new or worsening symptoms call 911 or come back to the ER for further evaluation. Prescriptions: No Action prenat.vits,chandler,ndk-oryl-fekao Tablet 1 tab PO DAILY Qty: 30 0RF cephalexin 500 mg capsule 500 mg PO TID Qty: 10 0RF ondansetron 4 mg tablet,disintegrating 4 mg PO Q8H 3 Days Qty: 9 0RF Stand Alone Forms: Work/School Release
== END 2022-05-13 08:42 | disposition home or self-care (01) ==
PROVIDERS: Emergency Provider Emergency Medicine
DX: O98.513 Other viral diseases complicating pregnancy, third trimester (principal); J06.9 Acute upper respiratory infection, unspecified; J02.9 Acute pharyngitis, unspecified; H92.02 Otalgia, left ear; Z3A.00 Weeks of gestation of pregnancy not specified
CPT/HCPCS: 36415; 87651; 99282; 99283

== ENCOUNTER 2022-10-24 14:54 | Emergency (ER) | payer OTHER, SELFPAY ==
[2022-10-24 14:58] VITALS: BP 106/49; PULSE 77; RESP 16; TEMP 36.1; O2SAT 99; BMI 26.2
--- NOTE | 2022-10-24 15:00 | ED.ABDPAIN ---
HPI - Abdominal Pain General Chief Complaint: Abdominal Pain Stated Complaint: Abd pain/tenderness Time Seen by Provider: 10/24/22 15:03 Source: patient Mode of arrival: ambulatory Limitations: no limitations History of Present Illness HPI narrative: 27 yo female with history of chronic constipation present to the ER for evaluation of acute onset of lower abdominal cramping pains that have been going on and off since 04:00 today. She denies any associated nausea, vomiting, diarrhea, fevers, urinary symptoms, chance of . She reports the pains come and go and are cramping in nature. She has not had a bowel movement in 1-2 weeks. She has been taking stool softeners with no affect. She has not tried any laxatives. She is passing flatus. She states she has suffered from chronic constipation since she was a child, used to be on laxatives but is no longer. MD elicited complaint: abdominal pain Pertinent past history: constipation Onset (ago): hour(s) Pain Consistency: intermittent Location: RLQ and LLQ Severity: moderate Quality: cramping Radiation: none Migration to: no migration Exacerbating factors: nothing Relieving factors: nothing Associated symptoms: constipation Related Data Previous Rx's Medication Instructions Recorded ondansetron 4 mg disintegrating 4 mg PO Q8H 3 days #9 tabs 11/10/21 tablet cephalexin 500 mg capsule 500 mg PO TID #10 caps 12/11/21 prenat.vits,chandler,dat-zrow-hcxiv 1 tab PO DAILY #30 tabs 12/11/21 bisacodyl 10 mg rectal suppository 10 mg RI DAILY PRN constipation 10/24/22 (Laxative (bisacodyl)) #12 ea polyethylene glycol 3350 17 gram 17 g PO DAILY #30 ea 10/24/22 oral powder packet (Miralax) sennosides 8.6 mg tablet (senna) 8.6 mg PO BEDTIME #20 tabs 10/24/22 Allergies Allergy/AdvReac Type Severity Reaction Status Date / Time banana [BANANA] Allergy Severe ANAPHYLAXIS Verified 10/24/22 14:58 rissa [RISSA] Allergy Mild HIVES Verified 10/24/22 14:58 pineapple [PINEAPPLE] Allergy Mild HIVES Verified 10/24/22 14:58 PEANUT BUTTER Allergy Severe ANAPHYLAXIS Uncoded 08/08/22 10:22 pineapple, rissa, banana Allergy Unknown hives Uncoded 03/22/22 10:22 Review of Systems Review of Systems Yes all other systems are reviewed and are negative PMFSH Past Medical History Medical History No known health problems Social History Social History Advance Directives: No Advance Directives Information Provided: Yes Physical Exam ED Vital Signs: Vital Signs - 24 hr 10/24/22 14:58 Temperature 97 F Pulse Rate 77 Respiratory Rate 16 Blood Pressure 106/49 L Pulse Oximetry 99 Oxygen Delivery Method Room Air BMI result Body Mass Index 26.2 Appearance: Alert. Oriented X3. No acute distress. HEENT: normal inspection CVS: Normal heart rate and rhythm. Pulses normal. Respiratory: No respiratory distress. Speaks in clear sentences ABD: Soft, nondistended, mild tenderness of the lower abdomen without any point tenderness. Normoactive bowel sounds x4. No rebound or guarding. ARASH: Normal inspection, normal sphincter tone, soft brown stool in the rectal vault Skin: Skin warm and dry. Normal skin color. Normal skin turgor. No rashes. Extremities: Normal inspection x4 Neuro: Oriented X 3 grossly normal, nonfocal Course Course Course Narrative: RME - 27 yo female presents to the ER for evaluation of intermittent, sharp, cramping pains in her lower abdomen that awoke her out of sleep at 4am. No N/V/D, urinary symptoms, vaginal discharge, or chance of . She reports last BM was a week or 2 ago. Passing flatus. Chronic constipation issues but has not taken any laxatives only stool softeners. Medical Decision Making Medical Decision Making MDM Narrative: 27-year-old female presents to the ER for evaluation of lower abdominal pain that will crepitus sleep at 04:00 today. She reports the pain is across the entire lower abdomen, cramping in nature and intermittent. She is constipated and has not had a bowel movement in a week or 2. Her abdomen is soft and nondistended. She does have some tenderness in her lower abdomen with normoactive bowel sounds. She is passing flatus. ARASH with soft stool in rectal vault. Suppository placed and oral laxatives given. At this point, comfortable discharge home with continuation of oral laxatives and suppositories p.r.n.. She was encouraged to increase oral fluid hydration and fiber intake. Stable for discharge home. Return precautions were discussed. Differential Diagnosis Differential Diagnoses: The differential diagnosis associated with the presentation includes Constipation, diverticulitis, less likely gastroenteritis, no evidence of bowel obstruction or fecal impaction External Record Review External record reviewed: Prior outpatient labs Tests considered The following testing was considered but not selected: CT scan or KUB were considered however given her abdomen is soft and benign, no evidence of bowel obstruction this was deferred. Prescription Management I considered prescription management with: Other (Laxatives) Chronic Conditions Patient?s care impacted by: Other (Chronic constipation) Medications Administered Discontinued Medications Generic Name Dose Route Start Last Admin Trade Name Freq PRN Reason Stop Dose Admin Bisacodyl 10 mg 10/24/22 15:04 10/24/22 15:17 Bisacodyl 10 Mg Supp.Rect RI 10/24/22 15:05 10 mg ONCE ONE Administration Polyethylene Glycol 17 gm 10/24/22 15:04 10/24/22 15:19 Polyethylene Glycol 3350 17 Gm Powd.Pack PO 10/24/22 15:05 17 gm ONCE ONE Administration Senna 15 ml 10/24/22 15:04 10/24/22 15:17 Senna Spooner Extract Oral Syrup 15 Ml Syrup PO 10/24/22 15:05 15 ml ONCE ONE Administration Critical Care Time Critical Care Time Critical Care Time: No Discharge Plan Discharge Clinical Impression: Constipation Patient Disposition: Home, Self-Care Instructions: Constipation (ED) Additional Instructions: Your exam was reassuring today. Take the prescribed laxative medications as directed. Increase your oral hydration and fiber intake. Follow-up with your doctor. You may need to get a GI referral. If you develop new or worsening symptoms call 911 or come back to the ER for further evaluation. Prescriptions: New bisacodyl [Laxative (bisacodyl)] 10 mg suppository 10 mg RI DAILY PRN (Reason: constipation) Qty: 12 0RF polyethylene glycol 3350 [Miralax] 17 gram powder in packet 17 g PO DAILY Qty: 30 0RF sennosides [senna] 8.6 mg tablet 8.6 mg PO BEDTIME Qty: 20 0RF No Action prenat.vits,chandler,wpr-rdst-soqtd Tablet 1 tab PO DAILY Qty: 30 0RF cephalexin 500 mg capsule 500 mg PO TID Qty: 10 0RF ondansetron 4 mg tablet,disintegrating 4 mg PO Q8H 3 Days Qty: 9 0RF Discharge Date/Time: 10/24/22 15:32
--- OUTSIDE RECORDS SUMMARY | 2022-10-24 15:08 | XMS_ITS | Continuity of Care Document ---
:1995 Author Organization [facility] Address [address] [place] [id number]- Care Team Providers Name Role Phone Oli HEALY, Sergio Doan Primary Care Physician Encounter [facility] Date(s): 02/16/22 - 03/18/[facility] [address] [place] [id number] Allergies, Adverse Reactions, Alerts No Known Allergies Medications Multivitamin Tablet 0 Refills, Maintenance, 09/20/16 19:54:04 Start Date: 09/20/16 Status: OrderedZofran 4 mg oral tablet 1 tablet = 4 mg, By Mouth, Every 6 hours, PRN Nausea & Vomiting, # 10 tablet, 1 Refills, Maintenance, 09/20/16 22:30:14, Tablet Start Date: 09/20/16 Status: Ordered Problem List Condition Effective Dates Status Health Status Informant Abdominal pain(Confirmed) Active Diarrhea(Confirmed) Active
--- OUTSIDE RECORDS SUMMARY | 2022-10-24 15:08 | XMS_ITS | Continuity of Care Document ---
:1995 Author Organization [facility] Address [address] [place] [phone]- Care Team Providers Name Role Phone Oli HEALY, Sergio Doan Primary Care Physician Encounter [facility] Date(s): 12/24/21 - 02/14/[address] [id number] Attending Physician: Jody Maldonado DO Admitting Physician: Jody Maldonado DO Referring Physician: Jody Maldonado DO Allergies, Adverse Reactions, Alerts No Known Allergies [...]
--- OUTSIDE RECORDS SUMMARY | 2022-10-24 15:08 | XMS_ITS | Continuity of Care Document ---
:1995 Author Organization [facility] Address [address] [place] [id number]- Care Team Providers Name Role Phone Oli HEALY, Sergio Doan Primary Care Physician Encounter [facility] Date(s): 03/24/22 - 04/29/[address] [id number] Attending Physician: Juany HEALY, Harrison Admitting Physician: Juany HEALY, Harrison Referring Physician: Francoise Victoria MD Allergies, Adverse Reactions, Alerts Substance Reaction Severity Status Peanuts Active Bananas Pineapple Active Pineapple Active Medications aspirin 81 mg oral capsule 4 capsule = 324 mg, By Mouth, Every 4 hours, 0 Refills, Maintenance, 03/22/22 16:25:00 EDT, Partial fill upon patient request if the prescription is for a schedule II opioid drug. Start Date: 03/22/22 Status: OrderedMultivitamin Tablet 0 Refills, Maintenance, 09/20/16 19:54:04 Start Date: 09/20/16 Status: OrderedPaxlovid 150 mg-100 mg (150 mg-100 mg Dose) oral tablet See Instructions, take as prescribed, # 30 tablet, 0 Refills, Maintenance, 03/22/22 17:27:00 EDT, [facility], Partial fill upon patient request if the prescription is for a scheduleII opioid drug. Start Date: 03/22/22 Status: OrderedTylenol 325 mg oral tablet 650 mg, 2, tablet, By Mouth, Every 4 hours, PRN, # 40 tablet, Refills 0, Tot. Refills 0, Maintenance, for pain, 03/22/22 17:28:00 EDT, Route to Pharmacy Electronically, [facility], Partial fill upon patient request if the prescript... Start Date: 03/22/22 Status: OrderedZofran 4 mg oral tablet 1 tablet = 4 mg, By Mouth, Every 6 hours, PRN Nausea & Vomiting, # 10 tablet, 1 Refills, Maintenance, 09/20/16 22:30:14, Tablet Start Date: 09/20/16 Status: Ordered Problem List Condition Effective Dates Status Health Status Informant Abdominal pain(Confirmed) Active Anemia(Confirmed) Active Diarrhea(Confirmed) Active Preeclampsia(Confirmed)1 Active 1With first 2017 Care Team PersonnelName: Oli HEALY, Sergio Doan Address: [address] [place] [id number]
--- OUTSIDE RECORDS SUMMARY | 2022-10-24 15:08 | XMS_ITS | Continuity of Care Document ---
:1995 Author Organization [facility] Address [address] [place] [phone]- Care Team Providers Name Role Phone Oli HEALY, Sergio Doan Primary Care Physician Encounter [facility] Date(s): 12/21/21 - 01/22/[address] [id number] Attending Physician: Jody Maldonado DO Admitting [...]
--- OUTSIDE RECORDS SUMMARY | 2022-10-24 15:08 | XMS_ITS | Continuity of Care Document ---
:1995 Author Organization [facility] Address [address] [place] [id number]- Care Team Providers Name Role Phone Oli HEALY, Sergio Doan Primary Care Physician Encounter [facility] Date(s): 02/04/22 - 03/27/[address] [id number] Attending Physician: Jody Maldonado DO Admitting Physician: Jody Maldonado DO Referring Physician: Jody Maldonado DO Allergies, Adverse Reactions, Alerts Substance Reaction Severity [...] tablet, 0 Refills, Maintenance, 03/22/22 17:27:00 EDT, [facility], Partial fill upon patient request if the prescription is for a scheduleII opioid drug. Start Date: 03/22/22 Status: OrderedTylenol 325 mg oral tablet 650 mg, 2, tablet, By Mouth, Every 4 hours, PRN, # 40 tablet, Refills 0, Tot. Refills 0, Maintenance, for pain, 03/22/22 17:28:00 EDT, Route to Pharmacy Electronically, [facility], Partial fill upon patient request if [...]
--- OUTSIDE RECORDS SUMMARY | 2022-10-24 15:08 | XMS_ITS | Continuity of Care Document ---
:1995 Author Organization [facility] Address [address] [place] [phone]- Care Team Providers Name Role Phone Oli HEALY, Sergio Doan Primary Care Physician Encounter [facility] Date(s): 03/22/22 - 03/22/[address] [id number] Discharge Disposition: A-D/C Home Attending Physician: Gideon Aguilar MD Admitting Physician: Gideon Aguilar MD Referring Physician: Gideon Aguilar MD Allergies, Adverse Reactions, Alerts Substance Reaction [...] tablet, 0 Refills, Maintenance, 03/22/22 17:27:00 EDT, [facility], Partial fill upon patient request if the prescription is for a scheduleII opioid drug. Start Date: 03/22/22 Status: OrderedTylenol 325 mg oral tablet 650 mg, 2, tablet, By Mouth, Every 4 hours, PRN, # 40 tablet, Refills 0, Tot. Refills 0, Maintenance, for pain, 03/22/22 17:28:00 EDT, Route to Pharmacy Electronically, [facility], Partial fill upon patient request if [...] Diarrhea(Confirmed) Active Preeclampsia(Confirmed)1 Active 1With first 2017 Procedures Procedure Date Related Diagnosis Body Site Status [place] tooth Completed Vital Signs Most recent to oldest [Reference Range]: 1 Oxygen Saturation [94-100 %] 99 % (03/22/22 4:00 PM) Blood Pressure [90-138/55-84 mm Hg] 104/51 mm Hg (03/22/22 4:00 PM) Respiratory Rate [16-30 br/min] 20 br/min (03/22/22 4:00 PM) Temperature [96.8-100.4 DegF] 98.7 DegF (03/22/22 3:52 PM) Mode of Delivery (Oxygen) Room air (03/22/22 4:00 PM) Blood pressure sites Arm, right (03/22/22 4:00 PM) Temperature Route Oral (03/22/22 3:52 PM)
--- OUTSIDE RECORDS SUMMARY | 2022-10-24 15:08 | XMS_ITS | Continuity of Care Document ---
:1995 Author Organization [facility] Address [address] [place] [phone]- Care Team Providers Name Role Phone Oli HEALY, Sergio Doan Primary Care Physician Encounter [facility] Date(s): 03/25/22 - 04/24/22 [facility] [address] [place] [id number] Allergies, Adverse Reactions, Alerts Substance Reaction Severity [...] tablet, 0 Refills, Maintenance, 03/22/22 17:27:00 EDT, [facility], Partial fill upon patient request if the prescription is for a scheduleII opioid drug. Start Date: 03/22/22 Status: OrderedTylenol 325 mg oral tablet 650 mg, 2, tablet, By Mouth, Every 4 hours, PRN, # 40 tablet, Refills 0, Tot. Refills 0, Maintenance, for pain, 03/22/22 17:28:00 EDT, Route to Pharmacy Electronically, [facility], Partial fill upon patient request [...] Team PersonnelName: Oli HEALY, Sergio Doan Address: [address] [place] [id number]
--- OUTSIDE RECORDS SUMMARY | 2022-10-24 15:08 | XMS_ITS | Continuity of Care Document ---
:1995 Author Organization [facility] Address [address] [place] [id number]- Care Team Providers Name Role Phone Oli HEALY, Sergio Doan Primary Care Physician Encounter [facility] [place] Date(s): 06/30/22 - 07/03/[address] [id number] Discharge Disposition: A-D/C Home Attending Physician: Francoise Victoria MD Admitting Physician: Francoise Victoria MD Referring Physician: Joel HEALY, October Allergies, Adverse Reactions, Alerts Substance Reaction Severity Status Peanuts Active Fruit1 Active Bananas Pineapple Active Pineapple Active 1Mangos Medications Acetaminophen Tablet 650 mg, Tablet, By Mouth, Every 4 hours, PRN for Pain , Mild, (1-3), may give 325mg per patient preference and re-dose with 325mg within 4 hours, if needed. Patient should only receive a total of 650mgof Acetaminophen every 4 hours., Routine, 07/01... Start Date: 07/01/22 Stop Date: 07/04/22 Status: Discontinuedaspirin 81 mg oral capsule 4 capsule = 324 mg, By Mouth, Every 4 hours, 0 Refills, Maintenance, 03/22/22 16:25:00 EDT, Partial fill upon patient request if the prescription is for a schedule II opioid drug. Start Date: 03/22/22 Status: OrderedIbuprofen Tablet 800 mg, Tablet, By Mouth, Every 8 hours, PRN for Pain , Moderate, (4-6), may give 400mg per patient preference and re-dose with 400mg within 8 hours if needed. Patient should only receive a total of 800mg of Ibuprofen every 8 hours., Routine, ... Start Date: 07/01/22 Stop Date: 07/04/22 Status: DiscontinuedMultivitamin Tablet 0 Refills, Maintenance, 09/20/16 19:54:04 Start Date: 09/20/16 Status: Ordered Problem List Condition Confirmation Course Effective Dates Status Health Stat us Informant Abdominal pain Confirmed Active Anemia Confirmed Active Diarrhea Confirmed Active Obese class I Confirmed Active Preeclampsia1 Confirmed Active 1With first 2016 Vital Signs Most recent to oldest 1 2 3 [Reference Range]: Height 150 cm 150 cm 150 cm (07/03/22 9:40 AM) (07/03/22 12:04 AM) (07/02/22 5:00 PM) Weight 74 kg (06/30/22 9:29 PM) Oxygen Saturation [94-100 98 % 99 % 97 % %] (07/03/22 12:04 AM) (07/02/22 12:00 AM) ( 2 8:00 PM) Pulse Rate [55-90 bpm] 64 bpm 71 bpm 78 bpm (07/03/22 9:40 AM) (07/03/22 12:04 AM) (07/02/22 5:00 PM) Body Mass Index 32.89 kg/m2 [18.5-24.99 kg/m2] *>HHI* (06/30/22 9:29 PM) Blood Pressure 116/78 mm Hg 120/78 mm Hg 107/55 mm Hg [90-138/55-84 mm Hg] (07/03/22 9:40 AM) (07/03/22 12:04 AM) ( 5:00 PM) Respiratory Rate [16-30 18 br/min 20 br/min 20 br/mi n br/min] (07/03/22 9:40 AM) (07/03/22 12:32 AM) (07/03/22 12:32 AM) Temperature [96.8-100.4 98.2 DegF 98.9 DegF 98.5 Deg F DegF] (07/03/22 9:40 AM) (07/03/22 12:04 AM) (07/02/22 5:00 PM) Mode of Delivery (Oxygen) Room air Room air (07/03/22 12:04 AM) (07/01/22 8:02 AM) Blood pressure sites Arm, right Arm, right Arm, right (07/03/22 9:40 AM) (07/02/22 5:00 PM) (07/02/22 10:43 AM) Temperature Route Oral Oral Oral (07/03/22 9:40 AM) (07/03/22 12:04 AM) (07/02/22 5:00 PM) Dry Weight 74 kg (06/30/22 9:29 PM) History and physical note Jong Urrutia MD: MODIFY, PERFORM Event Display: History and Physical Hospital Authored Date: Patient: ??YARON ROA ? Age:??27 Years?Sex:??Female?:??1995?? OB Reason for Admission OB Reason for Admission Reason for admission: Induction of labor Reason for Induction: Late term LMP/EGA/MARI Gestational Age (EGA) and MARI? * Note: EGA calculated as of 07/01/2022 ?? MARI:??06/22/2022?EGA*:??41 weeks 2 days ? History?(2,0,2,2)?Method:??Last Menstrual Period??(09/19/2021) History of Present Illness Pt is a 27yo @ 40.4 presenting??for LT IOL. She admits to occasional cramping. She denies LOF,VB. + movement. Denies fever/chills, BILL, dizziness, changes in vision, CP, SOB, RUQ pain,??painwith urination, UE/LE swelling, calf tenderness. Pt would like to go w/o??epidural. Overall, doing we ll with no complaints. Review of Systems ROS is negative except for what has been specified or noted in the history of present illness Physical Exam Vitals & Measurements T:??98.6?F ?? SD:??87?? RR:??18?? BP:??123/74?? HT:??150??cm?? WT:??74??kg?? BMI:??32.89?? Constitutional: Pleasant, alert, cooperative, no acute distress. Respiratory:??Equal chest rise bilaterally, no labored breathing. Abdomen/GI: Gravid, firm, non-tender Gynecologic:?External Genitalia: normal exam, without lesions ??Vagina: no lesions, well-rugated ??Cervix: normal exam, no lesions Extremities: No edema present bilaterally, no calf erythema Skin: No rash or jaundice. Neurological/Psychiatric: Appearance appropriate, mood and affect stable. ?? Cephalic presentation confirmed by:??Ultrasound EFW: 3700g ?? Membrane Status:??Intact ? OB Assessment Baby A Baseline:130 Baseline Description:Normal, 110-160 bpm Baseline Variability:Moderate variability Accelerations:Present 2 or more Deceleration:None Uterine Number of Contractions per 10 minutes4 Monitor Mode, UterineExternal Cervical Cervical Dilatation3 cm Cervical Qejceccdxt10% Station-2 Assessment/Plan Assessment:??27yo @ 40.4 admitted for LT IOL. GBS+, PCN in active labor. Plan to admit for IOL with pit. Cat I. Reassuring maternal and status. Discussed with Dr. Victoria. LDRP team aware ?? Encounter for induction of labor (Z34.90):??- Admit to L&D - PPH Risk Assessment: low - COVID swab - CBC, lavender hold - IVFs - Induction: pit - Continuous EFM and tocometer - Pain control: wants to go unmedicated - Regular maternal diet - Re-eval in 2 hrs or PRN ?? OB History History?(2,0,2,2)? # 1 ?Baby 1 ?Outcome Date:??2015 ?Outcome or Result:??Spontaneous ?Gest Age:??6 weeks ? Outcome:? Sex:??-- ?? # 2 ?Baby 1 ?Outcome Date:??03/12/2017?Outcome or Result:??Vaginal ?Gest Age:??39 weeks 5 days ? Outcome:??Live ? Sex:??Male?Wt:?3459 g ?Hospital:??[facility] ?? # 3 ?Baby 1 ?Outcome Date:??08/30/2019?Outcome or Result:??Vaginal ?Gest Age:??39 weeks 5 days ? Outcome:??Live ? Sex:??Male?Wt:?3827 g ?Hospital:??[facility] ?? # 4 ?Baby 1 ?Outcome Date:??2020 ?Outcome or Result:??Spontaneous ?Gest Age:??5 weeks ? Outcome:? Sex:??-- Labs Labs Labs & Tests Antibody Screen: Negative (06/02/22) Blood Type: A Positive (06/02/22) Glucose 50 Gm, +60 Minutes: 112 mg/dL (06/02/22) Hct:??28.2 %??Low (06/30/22) Hepatitis B Surface Antigen: NEGATIVE (12/23/21) Hepatitis C Ab: NEGATIVE (12/23/21) Hgb:??8 Gm/dL??Low (06/30/22) HIV 4th Generation Ab-Ag Result: NEGATIVE (12/23/21) RPR Titer Result: NOT INDICATED (06/02/22) Rubella IgG Ab: POSITIVE (12/23/21) Syphilis Screen by KATELYNN: NEGATIVE (06/02/22) Urine Culture: Urine Culture (12/21/21) Problem List Active Active Problem List Abdominal pain: (Medical) Anemia: (Medical) Diarrhea: (Medical) Obese class I: (Medical) Preeclampsia: (Medical) With first 2017 : (Obstetric) (09/15/21) Procedure/Surgical History [place] tooth Home Medications Acetaminophen: 650 mg = 2 tablet, By Mouth, Every 4 hours, PRN (for pain) Aspirin: 324 mg = 4 capsule, By Mouth, Every 4 hours Multivitamin, nirmatrelvir-ritonavir: See Instructions, take as prescribed Ondansetron: 4 mg = 1 tablet, By Mouth, Every 6 hours, PRN (Nausea & Vomiting) Allergies Bananas??(Pineapple) Fruit Peanuts Pineapple Family History No family history recorded. Plan OB Plan Circumcision Plan: Before discharge (06/30/22) Infant Feeding Plan: Breast milk & Formula (06/30/22) Julien HEALY, Francoise Johnson: PERFORM Event Display: History and Physical Hospital Authored Date: Patient seen and examined and agree with above assessment and plan. Shell Victoria MD Hospital Progress note Loren Bro RN: PERFORM, SIGN, VERIFY, MODIFY, SIGN Event Display: Progress Note Hospital Authored Date: Patient: YARON ROA Age: 27 years Sex: Female : 1995 Associated Diagnoses: None Author: Loren Bro RN Pt out of bed ad nilo ambulating in room frequently. Taking in food and fluids well without nausea. Pt voiding without difficulty, dashawn care reviewed. Patient states pain is well controlled on current medication regime. Mild rubra flow with no clots noted. Caring for appropriately, will continue to monitor. Call monique within reach. Sara Ignacio MD: PERFORM, SIGN, VERIFY Event Display: Progress Note Hospital Authored Date: Patient: YARON ROA Age: 27 years Sex: Female : 1995 Associated Diagnoses: None Author: Sara Ignacio MD Basic Information Summary : 5 Parity: 2 . Baby A - Weight: 3.467 kg Baby A - Date, Time of : 07/01/22 10:57:00 Baby A - Gender: Male Baby A - Complications: None EGA at Documented Date, Time: 41W 2D Weight at Delivery Baby A - Delivery Type: Vaginal Delivery Complications: None Subjective Formula Feeding. Tolerating PO Well. Passing flatus. Ambulating. Lochia = menses. Voiding. No Nausea. Objective Afebrile Vital signs stable Recent Vital Signs Temperature: 98.5 DegF (07/02/22 00:00:00) Pulse Rate: 66 bpm (07/02/22 00:00:00) Respiratory Rate: 18 br/min (07/02/22 00:00:00) Systolic Blood Pressure: 104 mm Hg (07/02/22 00:00:00) Diastolic Blood Pressure: 57 mm Hg (07/02/22 00:00:00) Oxygen Saturation: 99 % (07/02/22 00:00:00) Constitutional: Appearance: Normal affect. Respiratory: Respirations: Within normal limits. Cardiovascular: Peripheral vascular: No Edema. Abdomen/GI: Abdomen/GI: Fundus ( Firm, Not tender, Below umbilicus ). Extremities:: Within normal limits. Impression and Plan Impression Post- day # 1 meeting milestones Plan routine post care regular diet discharge today discharge instructions reviewed desires d/c home today, f/u in office 6 weeks sooner Sara Green MD: PERFORM, SIGN, VERIFY Event Display: Progress Note Hospital Authored Date: Patient: YARON ROA Age: 27 years Sex: Female : 1995 Associated Diagnoses: None Author: Sara Ignacio MD Basic Information Summary : 5 Parity: 2 . Baby A - Weight: 3.467 kg Baby A - Date, Time of : 07/01/22 10:57:00 Baby A - Gender: Male Baby A - Complications: None EGA at Documented Date, Time: 41W 2D Weight at Delivery Baby A - Delivery Type: Vaginal Delivery Complications: None Subjective RN concerned re bleeding Objective Afebrile Vital signs stable Recent Vital Signs Temperature: 98.4 DegF (07/01/22 09:31:00) Pulse Rate: 87 bpm (06/30/22 21:29:00) Respiratory Rate: 18 br/min (07/01/22 08:02:00) Systolic Blood Pressure: 113 mm Hg (07/01/22 13:36:00) Diastolic Blood Pressure: 64 mm Hg (07/01/22 13:36:00) Oxygen Saturation: 99 % (07/01/22 13:36:00) Constitutional: Appearance: Normal affect. Abdomen/GI: Abdomen/GI: Fundus ( Firm, Below umbilicus ). Impression and Plan Called for eval of trickle, STEVEN with small clot, uterus firm, pit running, I gave methergine x 1 as pt reports h/o PPH in past, watched over 10 min with unremarkable amount of lochia. Will con't to monitor. Note Pepper Woodward RN: PERFORM Event Display: Discharge/Transfer Note Hospital Authored Date: Nursing Discharge Note Entered On: 07/03/2022 16:13 EST Performed On: 07/03/2022 16:12 EST by Pepper Woodward RN Nursing Discharge Note 2 Discharge Time : 07/03/2022 16:05 EST Discharge Level of Care at Discharge : Home/[facility] Care Director Of Oncology Utilized : No AMA Form Signed : No Patient Left Unit Via : Ambulatory Patient Accompanied Off Unit with : Other: with this RN DC Instructions Provided & Signed by Pt : Yes Patient Understands D/C Instructions : Yes Verbalized Understanding of D/C Plan By : Patient Patient Instructions Discharge Signed : Yes Discharge Comments : pt states understanding Did Pt have Specialty Bed or Wound Vac : No Pepper Woodward RN - 07/03/2022 16:12 Juan HEALY, October: PERFORM Event Display: Discharge/Transfer Note Hospital Authored Date: [id number] Patient: ??YARON ROA ? Age:??27 Years?Sex:??Female?:??1995?? Admit Date Admission Date: 06/30/2022 Discharge Date 07/03/2022 OB Reason for Admission OB Reason for Admission Reason for admission: Induction of labor Reason for Induction: Late term [facility] Hospital Course 27yo @ 40.4 admitted for LT IOL. Pit induction, uncomplicated vaginal delivery and routine recovery. Objective/Physical Exam on Day of Discharge Vitals & Measurements T:??98.9?F ?? HR:??93(Monitored)?? SD:??71?? RR:??20?? RR:??20?? BP:??120/78?? SpO2:??98%?? HT:??150??cm?? WT:??3.467??kg?? BMI:??32.89?? General:??Alert, in no acute cardiopulmonary distress. Mental Status:??Oriented to person, place and time. Normal affect. Head:??Normocephalic. Gastrointestinal:??Abdomen soft, non-tender. No guarding or rebound, fundus -2 firm. Genitourinary:??No costovertebral angle tenderness. Special Ed Assistant:??Lochia appropriate Extremities: No dependent edema or increase in peripheral swelling. Neurologic:??No??gross neurological deficits Assessment/Plan/Discharge Diagnosis Assessment:??27yo admitted??@ 40.4 for late term induction. Pit induction, uncomplicated vaginal delivery and routine recovery. Ready for discharge, precautions discussed. ?? Delivery Summary Delivery Summary Maternal Information ??Labor Information ?Baby A ?Labor Onset Methods: ??Induced ?Induction Methods: ??Pitocin ??Delivery Information ?Gestational Age at Delivery: ??41W 2D ?Obstetrical Laceration: ??Perineum intact ?Delivery Complications: ??None ?Blood Loss(ml): ??250 mL ? Baby A ??Delivery Information ?Delivery Type: ??Vaginal ?Date, Time of : ??07/01/22 10:57:00 ? Position: ??Supine ?Foot of bed removed: ??No ?Delayed Cord Clamping: ??Yes ?Placenta Delivery Date/Time: ??07/01/22 11:03:00 ?Placenta Delivery Method: ??Assisted ?Placenta to Pathology: ??No ??Care Team ?Attending Provider: ??Francoise Victoria MD ?Delivery Physician: ??Francoise Victoria MD ?rubber splicer #1: ??Kathy Land ?rubber splicer #2: ??Mady Muñoz RN ??Labor Information ?ROM Date, Time: ??07/01/22 07:12:00 ?ROM to Delivery Total Time: ??225 min ?3rd Stage, Length of Labor: ??6 min ? monitoring: ??External monitor ?? Information ? Outcome: ??Live ? Position: ??Occiput anterior ? Weight: ??3.467 kg ? Score 1 minute: ??8 ? Score 5 minute: ??9 ? Score 10 minute: ??9 ?Transferred To: ?? Care area with Family ?Umbilical Cord Description: ??3 vessel cord ? Complications: ??None ?Gender: ??Male ? Procedures Performed Vaginal delivery ?? Discharge Medications ???Aspirin (aspirin 81 mg oral capsule)???Multivitamin, (Multivitamin Tablet) Stop taking these medications ???Acetaminophen (Tylenol 325 mg oral tablet)???Ondansetron (Zofran 4 mg oral tablet)???nirmatrelvir-ritonavir (Paxlovid 150 mg-100 mg (150 mg-100 mg Dose) oral tablet) Feeding Method No Results Follow-Up Appointments Added Follow Up ?Time Frame ?Comments [facility] [phone]?2 months?Within 4-6 weeks with delivering provider. Patient Instructions We discussed discharge precautions including bleeding, infection, pain control, breast care, signs and symptoms of hypertension, VTE warning signs, and blues and depression. She will schedule her routine follow up as discussed, in??6 weeks. Trace DELA CRUZ, Pepper: PERFORM Event Display: Patient Education/Instruction Authored Date: [id number] Inpatient Adult Discharge Instructions [address] [address] Name: YARON ROA : 1995 Visit: 06/30/2022 20:55:00 Current Date: 07/03/2022 10:54 Account: [id number] Inpatient Adult Discharge Instructions We would like to thank you for allowing us to assist you with your healthcare needs. The following includes patient education materials and information regarding your injury/illness. Our entire staff strives to provide an excellent experience for our patients and their families. PLEASE ENSURE YOU FOLLOW-UP PER THE INSTRUCTIONS BELOW! ?? YOUR OPINION IS IMPORTANT TO US! Please complete the survey you may receive by mail or email. Your feedback will be used to make improvements to the healthcare experiences of our patients and their families. Surveys are administered by [employer] ?? If further treatment with your primary care physician or another doctor is recommended, it is important for you to keep the appointment. Call your primary care physician or return to the Emergency Department immediately if your condition worsens, fails to improve, or new symptoms develop. If you need to find a doctor, you can call [facility] for a referral at [phone] or toll free at [phone] ([phone]) or log in to [email or web address].. ?? You can view and manage your care through the patient portal or by using a health care mauro of your choosing. [employer] is a website that allows you to securely view your medical information including your hospital discharge summary, office visit summaries, medications and follow-up visits. You can also request appointments, renew medications, and request access to your medical information using a health care mauro of your choosing, or just ask a question. You can enroll at [email or web address] or register during your next office visit. You have been discharged from [facility], Patient Care Unit: [facility]. If you have any questions regarding these instructions after you leave, please call us and we will be happy to assist you. [facility] Your Care Team Attending Physician Julien HEALY, Francoise Johnosn Discharging Providers Joel HEALY, October Reason for Admission Induction of labor Your Diagnosis Encounter for induction of labor Tests Performed Below is a partial list of the tests performed during your hospitalization. You may have had other tests and procedures not included in this list. Please discuss all test results with your provider. CBC Type and Screen Primary Care Provider Oli HEALY, Sergio Doan Advance Directive Health Care Proxy on File Yes - Health Care Proxy No qualifying data available. Discharge Vitals Temperature: 98.2 DegF Height: 150 cm Pulse Rate: 64 bpm Weight: 74 kg Respiratory Rate: 18 br/min Body Mass Index:??32.89 kg/m2??Critical Systolic Blood Pressure: 116 mm Hg Body surface area: 1.76 Diastolic Blood Pressure: 78 mm Hg ?? Oxygen Saturation: 98 % ?? Studies Pending All tests and labs ordered during this hospital stay have been completed unless listed below. Pleasediscuss all pending results with your provider listed above in these instructions. ?? COVID-19 (2019 Novel Coronavirus) PCR What to do next Instructions From Your Doctor We discussed discharge precautions including bleeding, infection, pain control, breast care, signs and symptoms of hypertension, VTE warning signs, and blues and depression. She will schedule her routine follow up as discussed, in??6 weeks. Discharge Orders Instructions from your Care Team Discharge Care Instructions for the New Mom?? Please take a few moments to read through these helpful instructions before you leave the hospital. ??Your nurse will be glad to answer any questions you may have. ??You can also find this and more information throughout the purple??Becoming a Family??booklet,??[facility] New Beginnings Guide??and th e?? Consultation Services Guide??given to you after the of your baby. ??You may also phone our nurses stations if you have further questions. ??[facility]: ??First Floor ([phone]), Second Floor ([phone]). ?? Please call your provider if you have any questions or concerns ??before your next appointment. For ongoing support??please?Like?us on our Facebook page?[facility] New Beginnings?and sign up for our email newsletter at??[email or web address]. ??News and information will be sent to you??until your baby???s third birthday. Instructions for the New Mother Activity:?? For the next 2 weeks at home?no heavy lifting, avoid unnecessary stair climbing, and no driving (especially if you are taking medicine that may make you sleepy or feel that you are sleep deprived). ?? For the next 4-6 weeks - no tampons, no douches, no sexual intercourse. Use your dashawn bottle to rinse your perineum until your vaginal flow stops. ??If you have stitches inyour bottom, they generally dissolve within 7-10 days. ??Apply Tucks/witch aye pads until your soreness subsides. ??Use your bathroom at home every 3 to 4 hours, rinse, and change your pads. Warm showers feel great on achy muscles, sore backs and sore bottoms. Exercise: Walking is the best form of exercise. ??Wait until your follow up appointment with your provider in 4-6 weeks before engaging in more strenuous activity. Diet: Drink plenty of fluids to avoid constipation and to help support your recovery. Eat plenty of iron rich foods such as red meat, iron fortified cereals like Total and Cream of Wheat, raisins, prunes, greens and spinach. ??These will help to build your blood count back up as all women lose some blood after delivery. ??Also add foods rich in Vitamin C such as strawberries, oranges, papayas, kale and monique peppers. Continue to take your vitamins if you are . ??If you are not follow the instructions of your provider. ??If you were prescribed iron supplements such as ferrous sulfate, it is important to continue these until your doctor or manager marketing tells you to stop. Breast Care for Nursing Mothers: Wear a comfortable fitting, supportive nursing bra. ??An underwire bra is not recommended. Express drops of breast milk and rub over your nipples and areola (brown area) before and after eachfeeding to protect and heal sensitive skin and then air dry your nipples. ??If you are experiencing any soreness, you may purchase nipple cream such as TenderCare or Lansinoh. ??Use it in the followingmanner: ??finish your feeding or pumping session, self-express colostrum onto your nipple and air dry, apply the nipple cream to the nipple and areola. ??Use only small amounts for best results. If you are having difficulty getting the baby to latch onto the breast due to swelling of the areola, try applying pressure with your fingers for a couple of minutes above and below your nipple and walk your fingers outward softening the area and pushing the swelling away. ??This technique is known asreverse pressure softening. ??For demonstrations of this and other techniques such as the Roxana Hand Expression technique, please refer to the resources section of the Consultation Services Guide that you received from services.?? When your milk first comes in, usually within 3 to 5 days after delivery, you may experience engorgement. ??Your breasts may become swollen and very tender. ??Cold compresses work great to help with discomfort and reduce swelling. It will get better in a couple of days. ??Continue to nurse your baby frequently. ?? Call [facility]???s Consultation Service at [phone], press 1 to schedule an outpatient appointment or press 3??and a exchange consultant will return your call that day or the next if you call after 3pm. Breast Care for Bottle Feeding Mothers: Engorgement may occur within the first week after delivery. ??Your breasts may become hard and very tender. ??A cool compress of cleaned raw green cabbage leaves applied to the breast and changed as leaves wilt has been proven helpful for many women. ??Ice packs or frozen bags of peas also work nicelyto ease the discomfort. ??The soreness will only last a couple of days. Keep your back turned to the water while showering to decrease breast stimulation. Wear a snug fitting bra such as a sports bra. Control: Your doctor or manager marketing will discuss control methods with you when you are discharged from the hospital or at your checkup. ??Be sure to let your provider know if you are .? Pain Management: Cramping after is common and increases in strength with each baby you have. ??If you experience painful cramps, and have no allergies to acetaminophen (Tylenol) or ibuprofen (Motrin), you may continue to take these medications as you did in the hospital. ??Ibuprofen is also helpful with back aches following epidurals, perineal pain following a vaginal delivery, and moderate incisional pain after a section or a tubal ligation. ?? If you experience gas distention, especially after surgery, you may take an over the counter medication called simethicone. ??Take these chewable tablets 4 times a day as needed and directed on the package. ??Keep moving. ??Walking or rocking in a chair, will help to move the gas along. ??Karely tea made with heated karely campbell (instead of water) and a tea bag, stirred to dissolve carbonation (bubbles) is a helpful drink to soothe a gassy stomach. Warning Signs of a Problem to Notify Your Doctor or Tree Loader Meat of: Heavy vaginal bleeding?which is??soaking a pad every hour??with bright red blood. Passing blood clots the size of an egg or larger. An incision that is not healing. A temperature greater than or equal to 100.4 especially if accompanied by any of the following symptoms?painful, frequent urination; extreme back or flank pain; lower belly pain with a foul smellto your vaginal flow; a red hard hot area on your breast. ?? Severe headache that does not go away after taking acetaminophen or ibuprofen. ?? A headache that changes your vision, including seeing spots or blurring. Right sided upper abdominal pain along the rib cage area. Pain in your legs that is warm and tender to the touch. depression signs may include?loss of interest in your baby, weepiness, difficulty focusing, weight loss with no appetite, exhaustion, feeling overwhelmed or anxious, feelings??of despair, or thoughts of harming yourself or your baby. ??These symptoms are important and should be discussed with your doctor or manager marketing. depression may develop over a period of time and needs prompt medical attention. ??Do not suffer in silence. ??In both the??Becoming a Family??booklet and the??[facility]??New Beginnings Guide??there is a screening tool used to identify women at risk, called the [place] Scale which you have taken in the office prior to delivery and again during your hospitalstay. ??Three to four weeks after your delivery, and before your check with your provider, take this test and share your results with your provider. ??Be sure to mention any score of 10 or more. ?? Many women, and even some partners, may experience the?baby blues?? . ??This is a state of feeling overwhelmed and weepy. ??Discomfort from childbirth, hormonal changes, exhaustion, changes to yourbody and lifestyle are a few of the things that contribute to the highs and lows new parents go through. ??Don???t be afraid to ask your partner or family and friends for some help at home so you can get some rest and a few minutes to yourself. ??The blues will quickly pass. Personal Safety: Every person has the right to feel safe at home and live free from physical or emotional harm. ??If you have suffered mental or physical abuse at home, you are not alone. ??There is help. ??Please callHOZAYRAINE or the [facility] Program at [phone]. You Need to Schedule the Following Appointments Follow Up with??[facility] [phone] When??Within 2 months Why: Within 4-6 weeks with delivering provider. Where: [address] [place] [phone]- [phone] Discharge Medications YARON ROA :1995 Visit Date:06/30/2022 Medications: Please continue your medications until treatment is completed or stopped by your provider. Medications not listed below should be discontinued. Discuss any questions related to medications with your provider. What How Much When Instructions Next Dose Unchanged Aspirin (aspirin 81 mg oral capsule) 4 capsule Oral Every 4 hours Unchanged Multivitamin, (Multivitamin Tablet) ?? What How Much When Comments Stop Taking Acetaminophen (Tylenol 325 mg oral tablet) 2 tab(s) Oral Every 4 hours as needed for for pain Stop Taking nirmatrelvir-ritonavir (Paxlovid 150 mg-100 mg (150 mg-100 mg Dose) oral tablet) See instructions take as prescribed ?? Stop Taking Ondansetron (Zofran 4 mg oral tablet) 1 tab(s) Oral Every 6 hours as needed for Nausea & Vomiting Test Results Below is a partial list of the most recent Laboratory test results done prior to this discharge. You may have had other tests and procedures not included in this list. Please discuss all test results with your provider. CBC (06/30/2022) ???WBC - 12.1 k/mm3???RBC - 3.97 m/mm3???Hgb - 8.0 Gm/dL???Hct - 28.2 %???MCV - 71.0 femtoliters???MCH - 20.2 pg???MCHC - 28.4 g/dL???Platelet Count - 304 k/mm3???RDW-SD - 47.6 femtoliters???MPV - 11.2femtoliters???Nucleated RBC (Automated) - 0.0 #/100 WBC'S???Abs. NRBC - 0.0 k/mm3 Type and Screen (06/30/2022) ???Blood Type - A Positive???Antibody Screen - Negative Allergies (NKA means No Known Allergies) Bananas??(Pineapple) Fruit Peanuts Pineapple Problems Active Problems??(6) Abdominal pain?? Anemia?? Diarrhea?? Obese class I?? Preeclampsia? Education Materials Below is the list of Educational Leaflet Providered with your Discharge Instructions. Valuables and Belongings I fully understand and agree that [facility] accepts no responsibility for all my personal property including clothing, toilet articles, radios, jewelry, dentures, hearing aids, rings, money, or any other property that is in my possession or is brought to me after admission. I understand certain valuables may be placed in a hospital safe for a short period of time. I understand that the hospital is not liable for loss or damage due to accident, fire, or other natural occurrence while said property is in the safe. I accept full responsibility for any personal property that I keep with me, and will not hold the hospital responsible in case of loss or disappearance. I acknowledge that i have been encouraged to send valuables and belongings home. ?? No Valuables/Belongings: No valuables/belongings present Date for Pt to Sign Valuables/Belongings: 07/03/22 09:40:00 ?? Other Discharge Information ? Pulmonary Rehab Status?? Pulmonary Rehab Discharge Status?? Respiratory Rate: 18 br/min ? Common Emergency Awareness Tips IS IT A STROKE? Act FAST and Check for these signs: FACE Does the face look uneven? ARM Does one arm drift down? SPEECH Does their speech sound strange? TIME Call at any sign of stroke ?? Heart Attack Signs Chest discomfort: Most heart attacks involve discomfort in the center of the chest and lasts more than a few minutes, or goes away and comes back. It can feel like uncomfortable pressure, squeezing, fullness or pain. Discomfort in upper body: Symptoms can include pain or discomfort in one or both arms, back, neck, jaw or stomach. Shortness of breath: With or without discomfort. Other signs: Breaking out in a cold sweat, nausea, or lightheaded. Remember, MINUTES DO MATTER. If you experience any of these heart attack warning signs, call to get immediate medical attention! ?? Smoking can increase your chances of developing chronic health problems and can cause harmful effects to other family members in your house. If you smoke, you are strongly encouraged to quit. Please call [facility] at [phone] or [phone]-[employer] ([phone]) or log in to www.[facility]org for referrals to smoking cessation programs. ?? The National Suicide Prevention Hotline is available 07/03 if you or someone you know needs to find areason to keep living. By calling 1-749-872-udlc (0549) you'll be connected to a skilled, trained counselor at a crisis center in your area. INPATIENT DISCHARGE INSTRUCTIONS SIGNATURE PAGE YARON ROA Location:[facility] Registration Date and Time:06/30/2022 20:55 EST Primary Care Physician: Oli HEALY, Sergio Doan, I YARON ROA, have received the above patient education materials/instructions and have verbalized understanding. If ambulance or transport services are being used I further acknowledge being given a choice of service. ?? If you need to contact me, please call me at this number: . Patient/Forensic Specialist Name: Patient/Forensic Specialist Signature: Relationship to Patient: Witness Name/Signature: Date: Ibis Farley: PERFORM Event Display: Care Team Progress Note Authored Date: [id number] Patient: ??YARON ROA ? Age:??27 Years?Sex:??Female?:??1995?? Subjective Cart Round Visit (DAY 1) Current Experience ?Baby: Ashvin ? Plan: breast and bottle ? Latch: yes well sometimes not others per mom ? Output: WNL ? Problems: sometimes painful latch Assessment/Plan Pt request personal use pump for home, acquired Review feeding frequency and formula supplementation amounts, shown booklet with stomach sizes per day. encouraged to pump for feeds that baby is being fed formula to have a full milk supply/reviewed supply?? and demand as high lift driver for milk production. Observe that baby has frenulum under tongue that inhibits baby?? from lifting tongue when crying. No feeding observed or attempt to latch as mom declined. booklet left with mother OB Summary : 5 Parity: 2 . Baby A - Weight: 3.467 kg Baby A - Date, Time of : 07/01/22 10:57:00 Baby A - Gender: Male Baby A - Complications: None EGA at Documented Date, Time: 41W 2D Weight at Delivery Baby A - Delivery Type: Vaginal Delivery Complications: None OB History History?(2,0,2,2)? # 1 ?Baby 1 ?Outcome Date:??2015 ?Outcome or Result:??Spontaneous ?Gest Age:??6 weeks ? Outcome:? Sex:??-- ?? # 2 ?Baby 1 ?Outcome Date:??03/12/2017?Outcome or Result:??Vaginal ?Gest Age:??39 weeks 5 days ? Outcome:??Live ? Sex:??Male?Wt:?3459 g ?Hospital:??[facility] ?? # 3 ?Baby 1 ?Outcome Date:??08/30/2019?Outcome or Result:??Vaginal ?Gest Age:??39 weeks 5 days ? Outcome:??Live ? Sex:??Male?Wt:?3827 g ?Hospital:??[facility] ?? # 4 ?Baby 1 ?Outcome Date:??2020 ?Outcome or Result:??Spontaneous ?Gest Age:??5 weeks ? Outcome:? Sex:??-- Active Problem List Active Problem List Abdominal pain: (Medical) Anemia: (Medical) Diarrhea: (Medical) Obese class I: (Medical) Preeclampsia: (Medical) With first 2016 : (Obstetric) (09/15/21) Home Medications Aspirin: 324 mg = 4 capsule, By Mouth, Every 4 hours Multivitamin, Medications Medications (2) Active SCHEDULED: (0) CONTINUOUS: (0) PRN: (2) Acetaminophen 325 mg Tablet (Acetaminophen Tablet) ??650 mg, By Mouth, Every 4 hours Ibuprofen 800 mg Tablet (Ibuprofen Tablet) ??800 mg, By Mouth, Every 8 hours Sara Ignacio MD: PERFORM, SIGN, VERIFY Event Display: Discharge/Transfer Note Hospital Authored Date: [id number] Patient: YARON ROA Age: 27 years Sex: Female : 1995 Associated Diagnoses: None Author: Sara Ignacio MD Discharge Information Reason for Hospitalization: Reason for Admission: Induction of labor . Delivery Summary Maternal Information Labor Information Baby A Labor Onset Methods: Induced Induction Methods: Pitocin Delivery Information Gestational Age at Delivery: 41W 2D Obstetrical Laceration: Perineum intact Delivery Complications: None Blood Loss(ml): 250 mL Baby A Delivery Information Delivery Type: Vaginal Date, Time of : 07/01/22 10:57:00 Position: Supine Foot of bed removed: No Delayed Cord Clamping: Yes Placenta Delivery Date/Time: 07/01/22 11:03:00 Placenta Delivery Method: Assisted Placenta to Pathology: No Care Team Attending Provider: Francoise Victoria MD Delivery Physician: Francoise Victoria MD rubber splicer #1: Kathy Land rubber splicer #2: Mady Muñoz RN Labor Information ROM Date, Time: 07/01/22 07:12:00 ROM to Delivery Total Time: 225 min 3rd Stage, Length of Labor: 6 min monitoring: External monitor Information Outcome: Live Position: Occiput anterior Weight: 3.467 kg Score 1 minute: 8 Score 5 minute: 9 Score 10 minute: 9 Umbilical Cord Description: 3 vessel cord Complications: None Gender: Male Procedures Performed during hospitalization Vaginal: Vaginal delivery. Condition of patient on discharge: Discharge condition: Good. Status:: Formula feeding. Contraception: None. Final Diagnoses:: Active Problems (6) Abdominal pain Anemia Diarrhea Obese class I Preeclampsia . Instructions for continuing care:: Follow Up with: [facility] [phone] In 6 weeks 08/13/2022.Sara Ignacio MD: PERFORM, SIGN, VERIFY Event Display: Patient Education Handout Authored Date: [id number] Patient Care team information Care Team PersonnelName: Sergio Baird MD Position: S Outreach Member Role: PCP Address: Address: [address] [place] [address]- Name: Leyda Cheng RN Position: S OB RN Member Role: Primary Care Nurse Name: Mihaela Buckner RN Position: [facility] OB RN Member Role: Patient Care Provider Care Team Related PersonsName: YARON ROA Address: [address] Address: [address] [place] [address] [place] Name: BASIM VALENTIN Address: [address] [place] [address]
[2022-10-24] MEDS: bisacodyL 10 MG SUPP.RECT PR (15:17)
[2022-10-24] MEDS: polyethylene glycoL 3350 17 GM POWD.PACK PO (15:19)
== END 2022-10-24 15:32 | disposition home or self-care (01) ==
PROVIDERS: Emergency Provider Student in an Organized Health Care Education/Training Program
DX: K59.00 Constipation, unspecified (principal)
CPT/HCPCS: 99282

== ENCOUNTER 2022-11-09 13:17 | Emergency (ER) | payer OTHER, SELFPAY ==
[2022-11-09 13:33] VITALS: BP 113/75; PULSE 89; RESP 18; TEMP 36.9; O2SAT 100; BMI 26.2
--- NOTE | 2022-11-09 13:34 | ED_ITS ---
HPI - Female Genitourinary General Chief complaint: General Medical <DAFNE Tierney Last Filed: 11/09/22 13:37> Stated complaint: Blister on genitals <DAFNE Tierney Last Filed: 11/09/22 13:37> Time Seen by Provider: 11/09/22 14:15 <DAFNE Tierney Last Filed: 11/09/22 13:37> Source: patient and RN notes reviewed <DAFNE Santana Last Filed: 11/09/22 16:55> Mode of arrival: ambulatory <DAFNE Santana Last Filed: 11/09/22 16:55> Limitations: no limitations <DAFNE Santana Last Filed: 11/09/22 16:55> History of Present Illness HPI Narrative: This is a 27-year-old female who presents to the emergency department today with complaints of painful genital lesions since yesterday. Patient reports that she has not been sexually active for the last 3 months. She reports painful urination secondary to the lesions. She admits to having some vaginal discharge from the lesion. She denies any urinary urgency, hematuria, frequency or urgency. Denies any pelvic pain, nausea, vomiting, diarrhea, fevers, chills, cough, shortness of breath or chest pain. Denies history of herpes in the past. She has a history of yeast infections in the past. Denies any other complaints or concerns at this time. <DAFNE Santana Last Filed: 11/09/22 16:55> MD elicited complaint: genital rash <DAFNE Santana Last Filed: 11/09/22 16:55> Location of symptoms: external genitalia <DAFNE Santana Last Filed: 11/09/22 16:55> Severity: moderate <DAFNE Santana Last Filed: 11/09/22 16:55> Quality of pain: burning <DAFNE Santana Last Filed: 11/09/22 16:55> Consistency: constant <DAFNE Santana Last Filed: 11/09/22 16:55> Vaginal discharge: yellow <DAFNE Santana Last Filed: 11/09/22 16:55> Vaginal bleeding: none <DAFNE Santana Last Filed: 11/09/22 16:55> Urinary symptoms: Dysuria <DAFNE Santana - Last Filed: 11/09/22 16:55> Exacerbating factors: urination <DAFNE Santana - Last Filed: 11/09/22 16:55> Relieving factors: none <DAFNE Santana - Last Filed: 11/09/22 16:55> Associated symptoms: denies other symptoms <DAFNE Santana - Last Filed: 11/09/22 16:55> Treatment prior to arrival: none <DAFNE Santana - Last Filed: 11/09/22 16:55> Sexual activity: No <DAFNE Santana - Last Filed: 11/09/22 16:55> Patient : No <DAFNE Santana - Last Filed: 11/09/22 16:55> Date of Last Menstrual Period: 10/13/22 <DAFNE Santana - Last Filed: 11/09/22 16:55> Related Data Home medications: Previous Rx's Medication Instructions Recorded ondansetron 4 mg disintegrating 4 mg PO Q8H 3 days #9 tabs 11/10/21 tablet cephalexin 500 mg capsule 500 mg PO TID #10 caps 12/11/21 prenat.vits,chandler,aru-wfsm-nejdt 1 tab PO DAILY #30 tabs 12/11/21 bisacodyl 10 mg rectal suppository [address] DAILY PRN constipation 10/24/22 (Laxative (bisacodyl)) #12 ea polyethylene glycol 3350 17 gram 17 g PO DAILY #30 ea 10/24/22 oral powder packet (Miralax) sennosides 8.6 mg tablet (senna) 8.6 mg PO BEDTIME #20 tabs 10/24/22 doxycycline monohydrate 100 mg 100 mg PO BID 7 days #14 caps 11/09/22 capsule fluconazole 150 mg tablet 150 mg PO Q72H 2 doses #2 tabs 11/09/22 (Diflucan) valacyclovir 1 gram tablet 1,000 mg PO BID #20 tabs 11/09/22 metronidazole 500 mg tablet 500 mg PO BID 7 days #14 tabs 11/12/22 <Adriana Chin, PA - Last Filed: 11/09/22 13:37> Allergies/Adverse reactions: Allergies Allergy/AdvReac Type Severity Reaction Status Date / Time banana [BANANA] Allergy Severe ANAPHYLAXIS Verified 10/24/22 14:58 rissa [RISSA] Allergy Mild HIVES Verified 10/24/22 14:58 pineapple [PINEAPPLE] Allergy Mild HIVES Verified 10/24/22 14:58 PEANUT BUTTER Allergy Severe ANAPHYLAXIS Uncoded 03/22/22 10:22 pineapple, rissa, banana Allergy Unknown hives Uncoded 03/22/22 10:22 <Adriana Chin PA - Last Filed: 11/09/22 13:37> Review of Systems Constitutional: Constitutional: Denies chills and Denies fever(s) <Jazz Adkins, PA - Last Filed: 11/09/22 16:55> Eyes: Eyes: Denies change in vision and Denies dry eyes <Jazz Adkins PA - Last Filed: 11/09/22 16:55> ENT: Denies dental pain, Denies vertigo, Denies dizziness, Denies facial pain and Denies sore throat <Jazz Adkins, PA - Last Filed: 11/09/22 16:55> Cardiovascular: Cardiovascular: Denies chest pain <Jazz Adkins, PA - Last Filed: 11/09/22 16:55> Respiratory: Respiratory: Denies chest congestion, Denies cough and Denies wheezing <Jazz Adkins, PA - Last Filed: 11/09/22 16:55> Gastrointestinal: Gastrointestinal: Denies abdominal pain <Jazz Adkins, PA - Last Filed: 11/09/22 16:55> Genitourinary: Genitourinary: Reports genital lesions, Denies pelvic pain, Denies urinary incontinence, Denies urinary hesitancy, Denies urinary urgency, Reports vaginal discharge, Denies vaginal odor and Denies vaginal pruritus <Jazz Adkins, PA - Last Filed: 11/09/22 16:55> Musculoskeletal: Musculoskeletal: Denies back pain, Denies myalgias, Denies arthralgias and Denies joint swelling <Jazz Adkins, PA - Last Filed: 11/09/22 16:55> Integumentary/Breasts: Skin/Breast: Reports system reviewed and no additional complaints, except as docu <DAFNE Santana - Last Filed: 11/09/22 16:55> Neurologic: Denies vertigo and Denies dizziness <DAFNE Santana - Last Filed: 11/09/22 16:55> Psychiatric: Psychiatric: Denies anxiety <DAFNE Santana - Last Filed: 11/09/22 16:55> Allergic/Immunologic: Allergic/Immunologic: Denies wheezing <DAFNE Santana - Last Filed: 11/09/22 16:55> [facility] Past Medical History Attestation statement: The following information was validated with the patient. <DAFNE Santana - Last Filed: 11/09/22 16:55> Medical History: Medical History No known health problems <DAFNE Tierney - Last Filed: 11/09/22 13:37> Date of Last Menstrual Period: 10/13/22 <DAFNE Santana - Last Filed: 11/09/22 16:55> Social History Social History: Social History Advance Directives: No Advance Directives Information Provided: Yes Patient : No <DAFNE Tierney - Last Filed: 11/09/22 13:37> Physical Exam Vital Signs: Vital Signs: Last Vital Signs Temp 98.4 F 11/09/22 13:33 Pulse 89 11/09/22 13:33 Resp 18 11/09/22 13:33 BP 113/75 11/09/22 13:33 Pulse Ox 100 11/09/22 13:33 O2 Del Method Room Air 11/09/22 13:33 BMI result Body Mass Index 26.2 <DAFNE Tierney - Last Filed: 11/09/22 13:37> Vital Signs: Last Vital Signs Temp 98.4 F 11/09/22 13:33 Pulse 89 11/09/22 13:33 Resp 18 11/09/22 13:33 BP 113/75 11/09/22 13:33 Pulse Ox 100 11/09/22 13:33 O2 Del Method Room Air 11/09/22 13:33 BMI result Body Mass Index 26.2 <DAFNE Santana - Last Filed: 11/09/22 16:55> Vital Signs: Last Vital Signs Temp 98.4 F 11/09/22 13:33 Pulse 89 11/09/22 13:33 Resp 18 11/09/22 13:33 BP 113/75 11/09/22 13:33 Pulse Ox 100 11/09/22 13:33 O2 Del Method Room Air 11/09/22 13:33 BMI result Body Mass Index 26.2 <Morenita Talbot [employer] - Last Filed: 11/12/22 09:25> Vital Signs: Last Vital Signs Temp 98.4 F 11/09/22 13:33 Pulse 89 11/09/22 13:33 Resp 18 11/09/22 13:33 BP 113/75 11/09/22 13:33 Pulse Ox 100 11/09/22 13:33 O2 Del Method Room Air 11/09/22 13:33 BMI result Body Mass Index 26.2 <Costa Bai PA - Last Filed: 11/13/22 09:37> Const: General: cooperative, comfortable and no acute distress <Jazz Adkins PA - Last Filed: 11/09/22 16:55> Nutritional Appearance: average body habitus <Jazz Adkins PA - Last Filed: 11/09/22 16:55> Limitations: no limitations <Jazz Adkins PA - Last Filed: 11/09/22 16:55> HEENT: Head: Yes normal to inspection, Yes normocephalic and Yes atraumatic <Jazz Adkins PA - Last Filed: 11/09/22 16:55> Eyes: General: appearance normal, both eyes and all related structures <Jazzblanca Adkins PA - Last Filed: 11/09/22 16:55> Conjunctivae: conjunctivae normal <Jazz Jed PA - Last Filed: 11/09/22 16:55> Sclerae: sclerae normal <Jazzblanca Adkins PA - Last Filed: 11/09/22 16:55> EOM: EOMs intact bilaterally <Jazz Adkins PA - Last Filed: 11/09/22 16:55> Neck: Neck: Yes normal visual inspection <Jazz Adkins PA - Last Filed: 11/09/22 16:55> Chest: Chest palpation & inspection: normal inspection of the chest <DANFE Santana - Last Filed: 11/09/22 16:55> Resp: Effort & Inspection: normal respiratory effort <DAFNE Santana - Last Filed: 11/09/22 16:55> Auscultation: clear to auscultation bilaterally, no crackles, no rales, no rhonchi and no wheezes <DAFNE Santana - Last Filed: 11/09/22 16:55> Cardio: Rate: regular rate <Jazz Adkins [place] - Last Filed: 11/09/22 16:55> Rhythm: regular rhythm <DAFNE Santana - Last Filed: 11/09/22 16:55> Heart sounds: S1 normal heart sound present and S2 normal heart sound present <DAFNE Santana - Last Filed: 11/09/22 16:55> GI: Other: Abdomen is soft, nondistended, nontender to palpation, normoactive bowel sounds. <DAFNE Santana - Last Filed: 11/09/22 16:55> Inspection: Yes normal to inspection and No distended <DAFNE Santana - Last Filed: 11/09/22 16:55> : Other: Numerous vesicles noted to the labia majora, with scant white vaginal discharge. Vulvar erythema and edema with excoriations noted. <DAFNE Santana - Last Filed: 11/09/22 16:55> External Female Exam: normal appearance of the urethra <DAFNE Santana - Last Filed: 11/09/22 16:55> Course Course Course Narrative: RME-13:40PM - 27-year-old female presenting to the ER with complaints of blister/lesions to the genital area that started over the past few days worse today. Reports her last sexual intercourse was approximately 4 months ago. Reports she has never had this in the past. Reports she recently shaved in believes it might be related to this. Denies any abnormal discharge, fevers, abdominal pain or flank pain or hematuria or any other symptoms complaints or concerns at this time. Plan: Will obtain labs including syphilis, herpes, UA patient to be seen in EM. <DAFNE Tierney - Last Filed: 11/09/22 13:37> RME-13:40PM - 27-year-old female presenting to the ER with complaints of blister/lesions to the genital area that started over the past few days worse today. Reports her last sexual intercourse was approximately 4 months ago. Reports she has never had this in the past. Reports she recently shaved in believes it might be related to this. Denies any abnormal discharge, fevers, abdominal pain or flank pain or hematuria or any other symptoms complaints or concerns at this time. Plan: Will obtain labs including syphilis, herpes, UA patient to be seen in [facility] [place] <DAFNE Ross - Last Filed: 11/13/22 09:37> Reevaluation(s) Reevaluation #1: Called with positive bacterial vaginosis test. herpes test still pending. patient understands, Called in flagyl to the pharmacy for the patient. <Morenita Talbot NP - Last Filed: 11/12/22 09:25> Called with positive bacterial vaginosis test. herpes test still pending. patient understands, Called in flagyl to the pharmacy for the patient. Patient had urine culture positive for E coli, susceptible to Macrobid, called patient who is symptomatic , and called in Macrobid to [facility] <DAFNE Ross - Last Filed: 11/13/22 09:37> Medications Administered Discontinued Medications Generic Name Dose Route Start Last Admin Trade Name Freq PRN Reason Stop Dose Admin Ceftriaxone Sodium 500 mg/ 0 mg 11/09/22 15:06 11/09/22 15:25 Lidocaine HCl 1 ml IM 11/09/22 15:07 500 kit ONCE ONE Administration <DAFNE Tierney - Last Filed: 11/09/22 13:37> Medications Administered Discontinued Medications Generic Name Dose Route Start Last Admin Trade Name Freq PRN Reason Stop Dose Admin Ceftriaxone Sodium 500 mg/ 0 mg 11/09/22 15:06 11/09/22 15:25 Lidocaine HCl 1 ml IM 11/09/22 15:07 500 kit ONCE ONE Administration <DAFNE Santana - Last Filed: 11/09/22 16:55> Medications Administered Discontinued Medications Generic Name Dose Route Start Last Admin Trade Name Freq PRN Reason Stop Dose Admin Ceftriaxone Sodium 500 mg/ 0 mg 11/09/22 15:06 11/09/22 15:25 Lidocaine HCl 1 ml IM 11/09/22 15:07 500 kit ONCE ONE Administration <Morenita Talbot NP - Last Filed: 11/12/22 09:25> Medications Administered Discontinued Medications Generic Name Dose Route Start Last Admin Trade Name Ana PRN Reason Stop Dose Admin Ceftriaxone Sodium 500 mg/ 0 mg 11/09/22 15:06 11/09/22 15:25 Lidocaine HCl 1 ml IM 11/09/22 15:07 500 kit ONCE ONE Administration <DAFNE Ross - Last Filed: 11/13/22 09:37> Medical Decision Making Medical Decision Making [facility] Narrative: 27 yo F presents for evaluation for evaluation of painful genital lesions x 1 day. VSS. On exam, patient's findings consistent with genital herpes. Viral culture and gc/chlamydia swab collected. Discussed with patient that patient's current presentation appears to be genital herpes. Will treat with ten-day course of Valtrex. Patient requesting additional treatment for gonorrhea and chlamydia. Patient treated with ceftriaxone as well as 7 day course of doxycycline. UA appears to be dirty, will not cover for urinary tract infection at this time, however instructed patient that we will call if her urine culture is positive. Patient understands and agrees with plan. <DAFNE Santana - Last Filed: 11/09/22 16:55> Differential Diagnosis Differential Diagnoses: The differential diagnosis associated with the presentation includes <DAFNE Santana - Last Filed: 11/09/22 16:55> genital herpes, UTI, STI, candidiasis <DAFNE Santana - Last Filed: 11/09/22 16:55> Lab Data [facility] Lab Attestation statement: I reviewed the patient's lab results. <DAFNE Santana - Last Filed: 11/09/22 16:55> Result Diagrams: 11/09/22 14:02 11/09/22 14:02 <DAFNE Tierney - Last Filed: 11/09/22 13:37> Labs: Lab Results 11/09/22 11/09/22 11/09/22 Range/Units 13:54 13:55 13:55 WBC (4.8-10.8) X10*3/uL RBC (4.20-5.50) X10*6/uL Hgb (12.0-16.0) g/dl Hct (37.0-47.0) % MCV (80.0-98.0) fL MCH (27.0-33.0) pg MCHC (31.0-35.0) g/dl RDW (11.0-16.0) % Plt Count (160-400) X10*3/uL MPV (9.4-12.3) fL Immature Gran % (Auto) (0.0-0.4) % Neut % (Auto) (45-73) % Lymph % (Auto) (20-40) % [place] % (Auto) (2-11) % Eos % (Auto) (0-4) % Baso % (Auto) (0-2) % Lymph # (Auto) (1.2-4.9) X10*3/uL [place] # (Auto) (0.1-1.2) X10*3/uL Eos # (Auto) (0.0-0.4) X10*3/uL Baso # (Auto) (0.0-0.2) X10*3/uL Abs Immat Gran (auto) (0.00-0.03) X10*3/uL Absolute Neuts (auto) (2.0-8.3) x10*3/uL Absolute Nucleated RBC (0.0-0.012) X10*3/uL Nucleated RBC % (auto) (0.0-0.2) /100WBC Sodium (135-145) mmol/L Potassium (3.3-5.1) mmol/L Chloride (96-108) mmol/L Carbon Dioxide (22-29) mmol/L Anion Gap (12-20) BUN (9-16) mg/dL Creatinine (0.5-1.4) mg/dL Estim Creat Clear Calc Estimated GFR Random Glucose (60-115) mg/dL Calcium (8.4-10.2) mg/dL Magnesium (1.6-2.6) mg/dL Total Bilirubin (0.0-1.0) mg/dL AST (5-31) U/L ALT (0-31) U/L Alkaline Phosphatase (39-117) U/L Total Protein (6.5-8.0) g/dL Albumin (3.5-5.0) g/dL Urine Color Yellow Urine Appearance Cloudy Urine pH 6.0 (5.0-9.0) Ur Specific C[place] >= 1.030 H (1.005-1.025) Urine Protein Trace (Neg-Trace) mg/dL Urine Glucose (UA) Negative (Negative) mg/dL Urine Ketones Negative (Negative) mg/dL Urine Blood Negative (Negative) Urine Nitrite Positive H (Negative) Ur Leukocyte Esterase Moderate (2+) H (Negative) Urine RBC 3-5 H (0-2) /HPF Urine WBC 21-50 H (0-5) /HPF Ur Squamous Epith Cells 11-20 (0-2) /HPF Urine Bacteria 4+ (None Seen) Hyaline Casts 0-2 (0-2) /LPF Urine Test NEGATIVE (NEGATIVE) T.pallidum Ab (EIA) (Nonreactive) Blanca species DNA (Negative) Chlam trachomat DNA PCR NOT DETECTED (Not Detect.) Gardnerella DNA Probe (Negative) HSV Culture & Type N.gonorrhoeae DNA (PCR) NOT DETECTED (Not Detect.) Trichomonas DNA Probe (Negative) 11/09/22 11/09/22 11/09/22 Range/Units 14:02 14:02 14:02 WBC 7.4 (4.8-10.8) X10*3/uL RBC 4.30 (4.20-5.50) X10*6/uL Hgb 9.2 L (12.0-16.0) g/dl Hct 31.0 L (37.0-47.0) % MCV 72.1 L (80.0-98.0) fL MCH 21.4 L (27.0-33.0) pg MCHC 29.7 L (31.0-35.0) g/dl RDW 15.8 (11.0-16.0) % Plt Count 260 (160-400) X10*3/uL MPV 11.9 (9.4-12.3) fL Immature Gran % (Auto) 0.3 (0.0-0.4) % Neut % (Auto) 57.8 (45-73) % Lymph % (Auto) 29.9 (20-40) % [place] % (Auto) 7.0 (2-11) % Eos % (Auto) 4.5 H (0-4) % Baso % (Auto) 0.5 (0-2) % Lymph # (Auto) 2.2 (1.2-4.9) X10*3/uL [place] # (Auto) 0.5 (0.1-1.2) X10*3/uL Eos # (Auto) 0.3 (0.0-0.4) X10*3/uL Baso # (Auto) 0.0 (0.0-0.2) X10*3/uL Abs Immat Gran (auto) 0.02 (0.00-0.03) X10*3/uL Absolute Neuts (auto) 4.3 (2.0-8.3) x10*3/uL Absolute Nucleated RBC 0.000 (0.0-0.012) X10*3/uL Nucleated RBC % (auto) 0.0 (0.0-0.2) /100WBC Sodium 140 (135-145) mmol/L Potassium 3.9 (3.3-5.1) mmol/L Chloride 108 (96-108) mmol/L Carbon Dioxide 25 (22-29) mmol/L Anion Gap 11 L (12-20) BUN 12 (9-16) mg/dL Creatinine 0.80 (0.5-1.4) mg/dL Estim Creat Clear Calc 84.0 Estimated GFR > 60 Random Glucose 93 (60-115) mg/dL Calcium 8.8 (8.4-10.2) mg/dL Magnesium 2.0 (1.6-2.6) mg/dL Total Bilirubin 0.4 (0.0-1.0) mg/dL AST 15 (5-31) U/L ALT 18 (0-31) U/L Alkaline Phosphatase 125 H (39-117) U/L Total Protein 6.7 (6.5-8.0) g/dL Albumin 4.1 (3.5-5.0) g/dL Urine Color Urine Appearance Urine pH (5.0-9.0) Ur Specific C[place] (1.005-1.025) Urine Protein (Neg-Trace) mg/dL Urine Glucose (UA) (Negative) mg/dL Urine Ketones (Negative) mg/dL Urine Blood (Negative) Urine Nitrite (Negative) Ur Leukocyte Esterase (Negative) Urine RBC (0-2) /HPF Urine WBC (0-5) /HPF Ur Squamous Epith Cells (0-2) /HPF Urine Bacteria (None Seen) Hyaline Casts (0-2) /LPF Urine Test (NEGATIVE) T.pallidum Ab (EIA) Nonreactive (Nonreactive) Blanca species DNA (Negative) Chlam trachomat DNA PCR (Not Detect.) Gardnerella DNA Probe (Negative) HSV Culture & Type N.gonorrhoeae DNA (PCR) (Not Detect.) Trichomonas DNA Probe (Negative) 11/09/22 11/09/22 Range/Units 15:00 15:00 WBC (4.8-10.8) X10*3/uL RBC (4.20-5.50) X10*6/uL Hgb (12.0-16.0) g/dl Hct (37.0-47.0) % MCV (80.0-98.0) fL MCH (27.0-33.0) pg MCHC (31.0-35.0) g/dl RDW (11.0-16.0) % Plt Count (160-400) X10*3/uL MPV (9.4-12.3) fL Immature Gran % (Auto) (0.0-0.4) % Neut % (Auto) (45-73) % Lymph % (Auto) (20-40) % [place] % (Auto) (2-11) % Eos % (Auto) (0-4) % Baso % (Auto) (0-2) % Lymph # (Auto) (1.2-4.9) X10*3/uL [place] # (Auto) (0.1-1.2) X10*3/uL Eos # (Auto) (0.0-0.4) X10*3/uL Baso # (Auto) (0.0-0.2) X10*3/uL Abs Immat Gran (auto) (0.00-0.03) X10*3/uL Absolute Neuts (auto) (2.0-8.3) x10*3/uL Absolute Nucleated RBC (0.0-0.012) X10*3/uL Nucleated RBC % (auto) (0.0-0.2) /100WBC Sodium (135-145) mmol/L Potassium (3.3-5.1) mmol/L Chloride (96-108) mmol/L Carbon Dioxide (22-29) mmol/L Anion Gap (12-20) BUN (9-16) mg/dL Creatinine (0.5-1.4) mg/dL Estim Creat Clear Calc Estimated GFR Random Glucose (60-115) mg/dL Calcium (8.4-10.2) mg/dL Magnesium (1.6-2.6) mg/dL Total Bilirubin (0.0-1.0) mg/dL AST (5-31) U/L ALT (0-31) U/L Alkaline Phosphatase (39-117) U/L Total Protein (6.5-8.0) g/dL Albumin (3.5-5.0) g/dL Urine Color Urine Appearance Urine pH (5.0-9.0) Ur Specific [place] (1.005-1.025) Urine Protein (Neg-Trace) mg/dL Urine Glucose (UA) (Negative) mg/dL Urine Ketones (Negative) mg/dL Urine Blood (Negative) Urine Nitrite (Negative) Ur Leukocyte Esterase (Negative) Urine RBC (0-2) /HPF Urine WBC (0-5) /HPF Ur Squamous Epith Cells (0-2) /HPF Urine Bacteria (None Seen) Hyaline Casts (0-2) /LPF Urine Test (NEGATIVE) T.pallidum Ab (EIA) (Nonreactive) Blanca species DNA Negative (Negative) Chlam trachomat DNA PCR (Not Detect.) Gardnerella DNA Probe Positive A (Negative) HSV Culture & Type SEE NOTE A N.gonorrhoeae DNA (PCR) (Not Detect.) Trichomonas DNA Probe Negative (Negative) <DAFNE Tierney - Last Filed: 11/09/22 13:37> Lab Results 11/09/22 11/09/22 11/09/22 Range/Units 13:54 13:55 13:55 WBC (4.8-10.8) X10*3/uL RBC (4.20-5.50) X10*6/uL Hgb (12.0-16.0) g/dl Hct (37.0-47.0) % MCV (80.0-98.0) fL MCH (27.0-33.0) pg MCHC (31.0-35.0) g/dl RDW (11.0-16.0) % Plt Count (160-400) X10*3/uL MPV (9.4-12.3) fL Immature Gran % (Auto) (0.0-0.4) % Neut % (Auto) (45-73) % Lymph % (Auto) (20-40) % [place] % (Auto) (2-11) % Eos % (Auto) (0-4) % Baso % (Auto) (0-2) % Lymph # (Auto) (1.2-4.9) X10*3/uL [place] # (Auto) (0.1-1.2) X10*3/uL Eos # (Auto) (0.0-0.4) X10*3/uL Baso # (Auto) (0.0-0.2) X10*3/uL Abs Immat Gran (auto) (0.00-0.03) X10*3/uL Absolute Neuts (auto) (2.0-8.3) x10*3/uL Absolute Nucleated RBC (0.0-0.012) X10*3/uL Nucleated RBC % (auto) (0.0-0.2) /100WBC Sodium (135-145) mmol/L Potassium (3.3-5.1) mmol/L Chloride (96-108) mmol/L Carbon Dioxide (22-29) mmol/L Anion Gap (12-20) BUN (9-16) mg/dL Creatinine (0.5-1.4) mg/dL Estim Creat Clear Calc Estimated GFR Random Glucose (60-115) mg/dL Calcium (8.4-10.2) mg/dL Magnesium (1.6-2.6) mg/dL Total Bilirubin (0.0-1.0) mg/dL AST (5-31) U/L ALT (0-31) U/L Alkaline Phosphatase (39-117) U/L Total Protein (6.5-8.0) g/dL Albumin (3.5-5.0) g/dL Urine Color Yellow Urine Appearance Cloudy Urine pH 6.0 (5.0-9.0) Ur Specific [place] >= 1.030 H (1.005-1.025) Urine Protein Trace (Neg-Trace) mg/dL Urine Glucose (UA) Negative (Negative) mg/dL Urine Ketones Negative (Negative) mg/dL Urine Blood Negative (Negative) Urine Nitrite Positive H (Negative) Ur Leukocyte Esterase Moderate (2+) H (Negative) Urine RBC 3-5 H (0-2) /HPF Urine WBC 21-50 H (0-5) /HPF Ur Squamous Epith Cells 11-20 (0-2) /HPF Urine Bacteria 4+ (None Seen) Hyaline Casts 0-2 (0-2) /LPF Urine Test NEGATIVE (NEGATIVE) T.pallidum Ab (EIA) (Nonreactive) Blanca species DNA (Negative) Chlam trachomat DNA PCR NOT DETECTED (Not Detect.) Gardnerella DNA Probe (Negative) HSV Culture & Type N.gonorrhoeae DNA (PCR) NOT DETECTED (Not Detect.) Trichomonas DNA Probe (Negative) 11/09/22 11/09/22 11/09/22 Range/Units 14:02 14:02 14:02 WBC 7.4 (4.8-10.8) X10*3/uL RBC 4.30 (4.20-5.50) X10*6/uL Hgb 9.2 L (12.0-16.0) g/dl Hct 31.0 L (37.0-47.0) % MCV 72.1 L (80.0-98.0) fL MCH 21.4 L (27.0-33.0) pg MCHC 29.7 L (31.0-35.0) g/dl RDW 15.8 (11.0-16.0) % Plt Count 260 (160-400) X10*3/uL MPV 11.9 (9.4-12.3) fL Immature Gran % (Auto) 0.3 (0.0-0.4) % Neut % (Auto) 57.8 (45-73) % Lymph % (Auto) 29.9 (20-40) % [place] % (Auto) 7.0 (2-11) % Eos % (Auto) 4.5 H (0-4) % Baso % (Auto) 0.5 (0-2) % Lymph # (Auto) 2.2 (1.2-4.9) X10*3/uL [place] # (Auto) 0.5 (0.1-1.2) X10*3/uL Eos # (Auto) 0.3 (0.0-0.4) X10*3/uL Baso # (Auto) 0.0 (0.0-0.2) X10*3/uL Abs Immat Gran (auto) 0.02 (0.00-0.03) X10*3/uL Absolute Neuts (auto) 4.3 (2.0-8.3) x10*3/uL Absolute Nucleated RBC 0.000 (0.0-0.012) X10*3/uL Nucleated RBC % (auto) 0.0 (0.0-0.2) /100WBC Sodium 140 (135-145) mmol/L Potassium 3.9 (3.3-5.1) mmol/L Chloride 108 (96-108) mmol/L Carbon Dioxide 25 (22-29) mmol/L Anion Gap 11 L (12-20) BUN 12 (9-16) mg/dL Creatinine 0.80 (0.5-1.4) mg/dL Estim Creat Clear Calc 84.0 Estimated GFR > 60 Random Glucose 93 (60-115) mg/dL Calcium 8.8 (8.4-10.2) mg/dL Magnesium 2.0 (1.6-2.6) mg/dL Total Bilirubin 0.4 (0.0-1.0) mg/dL AST 15 (5-31) U/L ALT 18 (0-31) U/L Alkaline Phosphatase 125 H (39-117) U/L Total Protein 6.7 (6.5-8.0) g/dL Albumin 4.1 (3.5-5.0) g/dL Urine Color Urine Appearance Urine pH (5.0-9.0) Ur Specific [place] (1.005-1.025) Urine Protein (Neg-Trace) mg/dL Urine Glucose (UA) (Negative) mg/dL Urine Ketones (Negative) mg/dL Urine Blood (Negative) Urine Nitrite (Negative) Ur Leukocyte Esterase (Negative) Urine RBC (0-2) /HPF Urine WBC (0-5) /HPF Ur Squamous Epith Cells (0-2) /HPF Urine Bacteria (None Seen) Hyaline Casts (0-2) /LPF Urine Test (NEGATIVE) T.pallidum Ab (EIA) Nonreactive (Nonreactive) Blanca species DNA (Negative) Chlam trachomat DNA PCR (Not Detect.) Gardnerella DNA Probe (Negative) HSV Culture & Type N.gonorrhoeae DNA (PCR) (Not Detect.) Trichomonas DNA Probe (Negative) 11/09/22 11/09/22 Range/Units 15:00 15:00 WBC (4.8-10.8) X10*3/uL RBC (4.20-5.50) X10*6/uL Hgb (12.0-16.0) g/dl Hct (37.0-47.0) % MCV (80.0-98.0) fL MCH (27.0-33.0) pg MCHC (31.0-35.0) g/dl RDW (11.0-16.0) % Plt Count (160-400) X10*3/uL MPV (9.4-12.3) fL Immature Gran % (Auto) (0.0-0.4) % Neut % (Auto) (45-73) % Lymph % (Auto) (20-40) % [place] % (Auto) (2-11) % Eos % (Auto) (0-4) % Baso % (Auto) (0-2) % Lymph # (Auto) (1.2-4.9) X10*3/uL [place] # (Auto) (0.1-1.2) X10*3/uL Eos # (Auto) (0.0-0.4) X10*3/uL Baso # (Auto) (0.0-0.2) X10*3/uL Abs Immat Gran (auto) (0.00-0.03) X10*3/uL Absolute Neuts (auto) (2.0-8.3) x10*3/uL Absolute Nucleated RBC (0.0-0.012) X10*3/uL Nucleated RBC % (auto) (0.0-0.2) /100WBC Sodium (135-145) mmol/L Potassium (3.3-5.1) mmol/L Chloride (96-108) mmol/L Carbon Dioxide (22-29) mmol/L Anion Gap (12-20) BUN (9-16) mg/dL Creatinine (0.5-1.4) mg/dL Estim Creat Clear Calc Estimated GFR Random Glucose (60-115) mg/dL Calcium (8.4-10.2) mg/dL Magnesium (1.6-2.6) mg/dL Total Bilirubin (0.0-1.0) mg/dL AST (5-31) U/L ALT (0-31) U/L Alkaline Phosphatase (39-117) U/L Total Protein (6.5-8.0) g/dL Albumin (3.5-5.0) g/dL Urine Color Urine Appearance Urine pH (5.0-9.0) Ur Specific [place] (1.005-1.025) Urine Protein (Neg-Trace) mg/dL Urine Glucose (UA) (Negative) mg/dL Urine Ketones (Negative) mg/dL Urine Blood (Negative) Urine Nitrite (Negative) Ur Leukocyte Esterase (Negative) Urine RBC (0-2) /HPF Urine WBC (0-5) /HPF Ur Squamous Epith Cells (0-2) /HPF Urine Bacteria (None Seen) Hyaline Casts (0-2) /LPF Urine Test (NEGATIVE) T.pallidum Ab (EIA) (Nonreactive) Blanca species DNA Negative (Negative) Chlam trachomat DNA PCR (Not Detect.) Gardnerella DNA Probe Positive A (Negative) HSV Culture & Type SEE NOTE A N.gonorrhoeae DNA (PCR) (Not Detect.) Trichomonas DNA Probe Negative (Negative) <DAFNE Santana - Last Filed: 11/09/22 16:55> Lab Results 11/09/22 11/09/22 11/09/22 Range/Units 13:54 13:55 13:55 WBC (4.8-10.8) X10*3/uL RBC (4.20-5.50) X10*6/uL Hgb (12.0-16.0) g/dl Hct (37.0-47.0) % MCV (80.0-98.0) fL MCH (27.0-33.0) pg MCHC (31.0-35.0) g/dl RDW (11.0-16.0) % Plt Count (160-400) X10*3/uL MPV (9.4-12.3) fL Immature Gran % (Auto) (0.0-0.4) % Neut % (Auto) (45-73) % Lymph % (Auto) (20-40) % [place] % (Auto) (2-11) % Eos % (Auto) (0-4) % Baso % (Auto) (0-2) % Lymph # (Auto) (1.2-4.9) X10*3/uL [place] # (Auto) (0.1-1.2) X10*3/uL Eos # (Auto) (0.0-0.4) X10*3/uL Baso # (Auto) (0.0-0.2) X10*3/uL Abs Immat Gran (auto) (0.00-0.03) X10*3/uL Absolute Neuts (auto) (2.0-8.3) x10*3/uL Absolute Nucleated RBC (0.0-0.012) X10*3/uL Nucleated RBC % (auto) (0.0-0.2) /100WBC Sodium (135-145) mmol/L Potassium (3.3-5.1) mmol/L Chloride (96-108) mmol/L Carbon Dioxide (22-29) mmol/L Anion Gap (12-20) BUN (9-16) mg/dL Creatinine (0.5-1.4) mg/dL Estim Creat Clear Calc Estimated GFR Random Glucose (60-115) mg/dL Calcium (8.4-10.2) mg/dL Magnesium (1.6-2.6) mg/dL Total Bilirubin (0.0-1.0) mg/dL AST (5-31) U/L ALT (0-31) U/L Alkaline Phosphatase (39-117) U/L Total Protein (6.5-8.0) g/dL Albumin (3.5-5.0) g/dL Urine Color Yellow Urine Appearance Cloudy Urine pH 6.0 (5.0-9.0) Ur Specific C[place] >= 1.030 H (1.005-1.025) Urine Protein Trace (Neg-Trace) mg/dL Urine Glucose (UA) Negative (Negative) mg/dL Urine Ketones Negative (Negative) mg/dL Urine Blood Negative (Negative) Urine Nitrite Positive H (Negative) Ur Leukocyte Esterase Moderate (2+) H (Negative) Urine RBC 3-5 H (0-2) /HPF Urine WBC 21-50 H (0-5) /HPF Ur Squamous Epith Cells 11-20 (0-2) /HPF Urine Bacteria 4+ (None Seen) Hyaline Casts 0-2 (0-2) /LPF Urine Test NEGATIVE (NEGATIVE) T.pallidum Ab (EIA) (Nonreactive) Blanca species DNA (Negative) Chlam trachomat DNA PCR NOT DETECTED (Not Detect.) Gardnerella DNA Probe (Negative) HSV Culture & Type N.gonorrhoeae DNA (PCR) NOT DETECTED (Not Detect.) Trichomonas DNA Probe (Negative) 11/09/22 11/09/22 11/09/22 Range/Units 14:02 14:02 14:02 WBC 7.4 (4.8-10.8) X10*3/uL RBC 4.30 (4.20-5.50) X10*6/uL Hgb 9.2 L (12.0-16.0) g/dl Hct 31.0 L (37.0-47.0) % MCV 72.1 L (80.0-98.0) fL MCH 21.4 L (27.0-33.0) pg MCHC 29.7 L (31.0-35.0) g/dl RDW 15.8 (11.0-16.0) % Plt Count 260 (160-400) X10*3/uL MPV 11.9 (9.4-12.3) fL Immature Gran % (Auto) 0.3 (0.0-0.4) % Neut % (Auto) 57.8 (45-73) % Lymph % (Auto) 29.9 (20-40) % [place] % (Auto) 7.0 (2-11) % Eos % (Auto) 4.5 H (0-4) % Baso % (Auto) 0.5 (0-2) % Lymph # (Auto) 2.2 (1.2-4.9) X10*3/uL [place] # (Auto) 0.5 (0.1-1.2) X10*3/uL Eos # (Auto) 0.3 (0.0-0.4) X10*3/uL Baso # (Auto) 0.0 (0.0-0.2) X10*3/uL Abs Immat Gran (auto) 0.02 (0.00-0.03) X10*3/uL Absolute Neuts (auto) 4.3 (2.0-8.3) x10*3/uL Absolute Nucleated RBC 0.000 (0.0-0.012) X10*3/uL Nucleated RBC % (auto) 0.0 (0.0-0.2) /100WBC Sodium 140 (135-145) mmol/L Potassium 3.9 (3.3-5.1) mmol/L Chloride 108 (96-108) mmol/L Carbon Dioxide 25 (22-29) mmol/L Anion Gap 11 L (12-20) BUN 12 (9-16) mg/dL Creatinine 0.80 (0.5-1.4) mg/dL Estim Creat Clear Calc 84.0 Estimated GFR > 60 Random Glucose 93 (60-115) mg/dL Calcium 8.8 (8.4-10.2) mg/dL Magnesium 2.0 (1.6-2.6) mg/dL Total Bilirubin 0.4 (0.0-1.0) mg/dL AST 15 (5-31) U/L ALT 18 (0-31) U/L Alkaline Phosphatase 125 H (39-117) U/L Total Protein 6.7 (6.5-8.0) g/dL Albumin 4.1 (3.5-5.0) g/dL Urine Color Urine Appearance Urine pH (5.0-9.0) Ur Specific [place] (1.005-1.025) Urine Protein (Neg-Trace) mg/dL Urine Glucose (UA) (Negative) mg/dL Urine Ketones (Negative) mg/dL Urine Blood (Negative) Urine Nitrite (Negative) Ur Leukocyte Esterase (Negative) Urine RBC (0-2) /HPF Urine WBC (0-5) /HPF Ur Squamous Epith Cells (0-2) /HPF Urine Bacteria (None Seen) Hyaline Casts (0-2) /LPF Urine Test (NEGATIVE) T.pallidum Ab (EIA) Nonreactive (Nonreactive) Blanca species DNA (Negative) Chlam trachomat DNA PCR (Not Detect.) Gardnerella DNA Probe (Negative) HSV Culture & Type N.gonorrhoeae DNA (PCR) (Not Detect.) Trichomonas DNA Probe (Negative) 11/09/22 11/09/22 Range/Units 15:00 15:00 WBC (4.8-10.8) X10*3/uL RBC (4.20-5.50) X10*6/uL Hgb (12.0-16.0) g/dl Hct (37.0-47.0) % MCV (80.0-98.0) fL MCH (27.0-33.0) pg MCHC (31.0-35.0) g/dl RDW (11.0-16.0) % Plt Count (160-400) X10*3/uL MPV (9.4-12.3) fL Immature Gran % (Auto) (0.0-0.4) % Neut % (Auto) (45-73) % Lymph % (Auto) (20-40) % [place] % (Auto) (2-11) % Eos % (Auto) (0-4) % Baso % (Auto) (0-2) % Lymph # (Auto) (1.2-4.9) X10*3/uL [place] # (Auto) (0.1-1.2) X10*3/uL Eos # (Auto) (0.0-0.4) X10*3/uL Baso # (Auto) (0.0-0.2) X10*3/uL Abs Immat Gran (auto) (0.00-0.03) X10*3/uL Absolute Neuts (auto) (2.0-8.3) x10*3/uL Absolute Nucleated RBC (0.0-0.012) X10*3/uL Nucleated RBC % (auto) (0.0-0.2) /100WBC Sodium (135-145) mmol/L Potassium (3.3-5.1) mmol/L Chloride (96-108) mmol/L Carbon Dioxide (22-29) mmol/L Anion Gap (12-20) BUN (9-16) mg/dL Creatinine (0.5-1.4) mg/dL Estim Creat Clear Calc Estimated GFR Random Glucose (60-115) mg/dL Calcium (8.4-10.2) mg/dL Magnesium (1.6-2.6) mg/dL Total Bilirubin (0.0-1.0) mg/dL AST (5-31) U/L ALT (0-31) U/L Alkaline Phosphatase (39-117) U/L Total Protein (6.5-8.0) g/dL Albumin (3.5-5.0) g/dL Urine Color Urine Appearance Urine pH (5.0-9.0) Ur Specific [place] (1.005-1.025) Urine Protein (Neg-Trace) mg/dL Urine Glucose (UA) (Negative) mg/dL Urine Ketones (Negative) mg/dL Urine Blood (Negative) Urine Nitrite (Negative) Ur Leukocyte Esterase (Negative) Urine RBC (0-2) /HPF Urine WBC (0-5) /HPF Ur Squamous Epith Cells (0-2) /HPF Urine Bacteria (None Seen) Hyaline Casts (0-2) /LPF Urine Test (NEGATIVE) T.pallidum Ab (EIA) (Nonreactive) Blanca species DNA Negative (Negative) Chlam trachomat DNA PCR (Not Detect.) Gardnerella DNA Probe Positive A (Negative) HSV Culture & Type SEE NOTE A N.gonorrhoeae DNA (PCR) (Not Detect.) Trichomonas DNA Probe Negative (Negative) <Morenita Talbot, VOCATIONAL CH[employer]DC[employer] TEACHER - Last Filed: 11/12/22 09:25> Lab Results 11/09/22 11/09/22 11/09/22 Range/Units 13:54 13:55 13:55 WBC (4.8-10.8) X10*3/uL RBC (4.20-5.50) X10*6/uL Hgb (12.0-16.0) g/dl Hct (37.0-47.0) % MCV (80.0-98.0) fL MCH (27.0-33.0) pg MCHC (31.0-35.0) g/dl RDW (11.0-16.0) % Plt Count (160-400) X10*3/uL MPV (9.4-12.3) fL Immature Gran % (Auto) (0.0-0.4) % Neut % (Auto) (45-73) % Lymph % (Auto) (20-40) % [place] % (Auto) (2-11) % Eos % (Auto) (0-4) % Baso % (Auto) (0-2) % Lymph # (Auto) (1.2-4.9) X10*3/uL [place] # (Auto) (0.1-1.2) X10*3/uL Eos # (Auto) (0.0-0.4) X10*3/uL Baso # (Auto) (0.0-0.2) X10*3/uL Abs Immat Gran (auto) (0.00-0.03) X10*3/uL Absolute Neuts (auto) (2.0-8.3) x10*3/uL Absolute Nucleated RBC (0.0-0.012) X10*3/uL Nucleated RBC % (auto) (0.0-0.2) /100WBC Sodium (135-145) mmol/L Potassium (3.3-5.1) mmol/L Chloride (96-108) mmol/L Carbon Dioxide (22-29) mmol/L Anion Gap (12-20) BUN (9-16) mg/dL Creatinine (0.5-1.4) mg/dL Estim Creat Clear Calc Estimated GFR Random Glucose (60-115) mg/dL Calcium (8.4-10.2) mg/dL Magnesium (1.6-2.6) mg/dL Total Bilirubin (0.0-1.0) mg/dL AST (5-31) U/L ALT (0-31) U/L Alkaline Phosphatase (39-117) U/L Total Protein (6.5-8.0) g/dL Albumin (3.5-5.0) g/dL Urine Color Yellow Urine Appearance Cloudy Urine pH 6.0 (5.0-9.0) Ur Specific [place] >= 1.030 H (1.005-1.025) Urine Protein Trace (Neg-Trace) mg/dL Urine Glucose (UA) Negative (Negative) mg/dL Urine Ketones Negative (Negative) mg/dL Urine Blood Negative (Negative) Urine Nitrite Positive H (Negative) Ur Leukocyte Esterase Moderate (2+) H (Negative) Urine RBC 3-5 H (0-2) /HPF Urine WBC 21-50 H (0-5) /HPF Ur Squamous Epith Cells 11-20 (0-2) /HPF Urine Bacteria 4+ (None Seen) Hyaline Casts 0-2 (0-2) /LPF Urine Test NEGATIVE (NEGATIVE) T.pallidum Ab (EIA) (Nonreactive) Blanca species DNA (Negative) Chlam trachomat DNA PCR NOT DETECTED (Not Detect.) Gardnerella DNA Probe (Negative) HSV Culture & Type N.gonorrhoeae DNA (PCR) NOT DETECTED (Not Detect.) Trichomonas DNA Probe (Negative) 11/09/22 11/09/22 11/09/22 Range/Units 14:02 14:02 14:02 WBC 7.4 (4.8-10.8) X10*3/uL RBC 4.30 (4.20-5.50) X10*6/uL Hgb 9.2 L (12.0-16.0) g/dl Hct 31.0 L (37.0-47.0) % MCV 72.1 L (80.0-98.0) fL MCH 21.4 L (27.0-33.0) pg MCHC 29.7 L (31.0-35.0) g/dl RDW 15.8 (11.0-16.0) % Plt Count 260 (160-400) X10*3/uL MPV 11.9 (9.4-12.3) fL Immature Gran % (Auto) 0.3 (0.0-0.4) % Neut % (Auto) 57.8 (45-73) % Lymph % (Auto) 29.9 (20-40) % [place] % (Auto) 7.0 (2-11) % Eos % (Auto) 4.5 H (0-4) % Baso % (Auto) 0.5 (0-2) % Lymph # (Auto) 2.2 (1.2-4.9) X10*3/uL [place] # (Auto) 0.5 (0.1-1.2) X10*3/uL Eos # (Auto) 0.3 (0.0-0.4) X10*3/uL Baso # (Auto) 0.0 (0.0-0.2) X10*3/uL Abs Immat Gran (auto) 0.02 (0.00-0.03) X10*3/uL Absolute Neuts (auto) 4.3 (2.0-8.3) x10*3/uL Absolute Nucleated RBC 0.000 (0.0-0.012) X10*3/uL Nucleated RBC % (auto) 0.0 (0.0-0.2) /100WBC Sodium 140 (135-145) mmol/L Potassium 3.9 (3.3-5.1) mmol/L Chloride 108 (96-108) mmol/L Carbon Dioxide 25 (22-29) mmol/L Anion Gap 11 L (12-20) BUN 12 (9-16) mg/dL Creatinine 0.80 (0.5-1.4) mg/dL Estim Creat Clear Calc 84.0 Estimated GFR > 60 Random Glucose 93 (60-115) mg/dL Calcium 8.8 (8.4-10.2) mg/dL Magnesium 2.0 (1.6-2.6) mg/dL Total Bilirubin 0.4 (0.0-1.0) mg/dL AST 15 (5-31) U/L ALT 18 (0-31) U/L Alkaline Phosphatase 125 H (39-117) U/L Total Protein 6.7 (6.5-8.0) g/dL Albumin 4.1 (3.5-5.0) g/dL Urine Color Urine Appearance Urine pH (5.0-9.0) Ur Specific [place] (1.005-1.025) Urine Protein (Neg-Trace) mg/dL Urine Glucose (UA) (Negative) mg/dL Urine Ketones (Negative) mg/dL Urine Blood (Negative) Urine Nitrite (Negative) Ur Leukocyte Esterase (Negative) Urine RBC (0-2) /HPF Urine WBC (0-5) /HPF Ur Squamous Epith Cells (0-2) /HPF Urine Bacteria (None Seen) Hyaline Casts (0-2) /LPF Urine Test (NEGATIVE) T.pallidum Ab (EIA) Nonreactive (Nonreactive) Blanca species DNA (Negative) Chlam trachomat DNA PCR (Not Detect.) Gardnerella DNA Probe (Negative) HSV Culture & Type N.gonorrhoeae DNA (PCR) (Not Detect.) Trichomonas DNA Probe (Negative) 11/09/22 11/09/22 Range/Units 15:00 15:00 WBC (4.8-10.8) X10*3/uL RBC (4.20-5.50) X10*6/uL Hgb (12.0-16.0) g/dl Hct (37.0-47.0) % MCV (80.0-98.0) fL MCH (27.0-33.0) pg MCHC (31.0-35.0) g/dl RDW (11.0-16.0) % Plt Count (160-400) X10*3/uL MPV (9.4-12.3) fL Immature Gran % (Auto) (0.0-0.4) % Neut % (Auto) (45-73) % Lymph % (Auto) (20-40) % [place] % (Auto) (2-11) % Eos % (Auto) (0-4) % Baso % (Auto) (0-2) % Lymph # (Auto) (1.2-4.9) X10*3/uL [place] # (Auto) (0.1-1.2) X10*3/uL Eos # (Auto) (0.0-0.4) X10*3/uL Baso # (Auto) (0.0-0.2) X10*3/uL Abs Immat Gran (auto) (0.00-0.03) X10*3/uL Absolute Neuts (auto) (2.0-8.3) x10*3/uL Absolute Nucleated RBC (0.0-0.012) X10*3/uL Nucleated RBC % (auto) (0.0-0.2) /100WBC Sodium (135-145) mmol/L Potassium (3.3-5.1) mmol/L Chloride (96-108) mmol/L Carbon Dioxide (22-29) mmol/L Anion Gap (12-20) BUN (9-16) mg/dL Creatinine (0.5-1.4) mg/dL Estim Creat Clear Calc Estimated GFR Random Glucose (60-115) mg/dL Calcium (8.4-10.2) mg/dL Magnesium (1.6-2.6) mg/dL Total Bilirubin (0.0-1.0) mg/dL AST (5-31) U/L ALT (0-31) U/L Alkaline Phosphatase (39-117) U/L Total Protein (6.5-8.0) g/dL Albumin (3.5-5.0) g/dL Urine Color Urine Appearance Urine pH (5.0-9.0) Ur Specific [place] (1.005-1.025) Urine Protein (Neg-Trace) mg/dL Urine Glucose (UA) (Negative) mg/dL Urine Ketones (Negative) mg/dL Urine Blood (Negative) Urine Nitrite (Negative) Ur Leukocyte Esterase (Negative) Urine RBC (0-2) /HPF Urine WBC (0-5) /HPF Ur Squamous Epith Cells (0-2) /HPF Urine Bacteria (None Seen) Hyaline Casts (0-2) /LPF Urine Test (NEGATIVE) T.pallidum Ab (EIA) (Nonreactive) Blanca species DNA Negative (Negative) Chlam trachomat DNA PCR (Not Detect.) Gardnerella DNA Probe Positive A (Negative) HSV Culture & Type SEE NOTE A N.gonorrhoeae DNA (PCR) (Not Detect.) Trichomonas DNA Probe Negative (Negative) <DAFNE Ross - Last Filed: 11/13/22 09:37> Prescription Management I considered prescription management with: Antiviral and Antibiotic <DAFNE Santana - Last Filed: 11/09/22 16:55> Cover for genital herpes as well as other STIs. <DAFNE aSntana - Last Filed: 11/09/22 16:55> Critical Care Time Critical Care Time Critical Care Time: No <DAFNE Santana Last Filed: 11/09/22 16:55> Discharge Plan Discharge Clinical Impression: Genital herpes <DANFE Tierney Last Filed: 11/09/22 13:37> Patient Disposition: Home, Self-Care <DAFNE Tierney Last Filed: 11/09/22 13:37> Instructions: Genital Herpes Simplex (ED) <DAFNE Tierney Last Filed: 11/09/22 13:37> Additional Instructions: Based on your physical exam, your symptoms are consistent with genital herpes. Do not have sexual intercourse until lesions resolve. We also tested you for other infections, we will call you with any abnormal results. If any new or worsening symptoms occur, please return. Follow up with your primary care physician regarding this visit. <DAFNE Tierney - Last Filed: 11/09/22 13:37> Prescriptions: New fluconazole [Diflucan] 150 mg tablet 150 mg PO Q72H Qty: 2 0RF valacyclovir 1 gram tablet 1,000 mg PO BID Qty: 20 0RF doxycycline monohydrate 100 mg capsule 100 mg PO BID 7 Days Qty: 14 0RF metronidazole 500 mg tablet 500 mg PO BID 7 Days Qty: 14 0RF No Action prenat.vits,chandler,[id number] Tablet 1 tab PO DAILY Qty: 30 0RF cephalexin 500 mg capsule 500 mg PO TID Qty: 10 0RF ondansetron 4 mg tablet,disintegrating 4 mg PO Q8H 3 Days Qty: 9 0RF bisacodyl [Laxative (bisacodyl)] 10 mg suppository [address] DAILY PRN (Reason: constipation) Qty: 12 0RF polyethylene glycol 3350 [Miralax] 17 gram powder in packet 17 g PO DAILY Qty: 30 0RF sennosides [senna] 8.6 mg tablet 8.6 mg PO BEDTIME Qty: 20 0RF <DAFNE Tierney - Last Filed: 11/09/22 13:37> Referrals: Physician,None [Primary Care Provider] - <DAFNE Tierney - Last Filed: 11/09/22 13:37> Interventions: ED Discharge Assessment Last Done: 11/09/22 15:25 <DAFNE Tierney - Last Filed: 11/09/22 13:37> Discharge Date/Time: 11/09/22 15:33 <DAFNE Tierney - Last Filed: 11/09/22 13:37>
[2022-11-09 14:10] LABS: MANUAL DIFF FLAG NO
[2022-11-09 14:13] LABS: Basophils Percent Auto 0.5 % (0-2); Eosinophils Absolute Auto 0.3 X10*3/uL (0.0-0.4); Eosinophils Percent Auto 4.5 % (0-4); Hemoglobin 9.2 g/dl (12.0-16.0); Imm Gran Abs Auto 0.02 X10*3/uL (0.00-0.03); Imm Gran Pct Auto 0.3 % (0.0-0.4); Lymphocytes Absolute Auto 2.2 X10*3/uL (1.2-4.9); Lymphocytes Percent Auto 29.9 % (20-40); Mean Corpuscular HGB Conc 29.7 g/dl (31.0-35.0); Mean Corpuscular Hemoglobin 21.4 pg (27.0-33.0); Mean Corpuscular Volume 72.1 fL (80.0-98.0); Mean Platelet Volume 11.9 fL (9.4-12.3); Monocytes Absolute Auto 0.5 X10*3/uL (0.1-1.2); Neutrophils Absolute Auto 4.3 x10*3/uL (2.0-8.3); Neutrophils Percent Auto 57.8 % (45-73); Platelet Count 260 X10*3/uL (160-400); Red Cell Distribution Width 15.8 % (11.0-16.0); White Blood Count 7.4 X10*3/uL (4.8-10.8)
[2022-11-09 14:13] LABS: UPreg QC Valid YES; Urine Pregnancy NEGATIVE (NEGATIVE)
[2022-11-09 14:14] LABS: Appearance Urine Cloudy; Color Urine Yellow; Glucose Urine UA Negative (Negative); Leukocyte Esterase Urine Moderate (2+) (Negative); Nitrite Urine Positive (Negative); Specific Gravity - Urine >= 1.030 (1.005-1.025); UMIC TRIGGER UACC YES; Urine Blood Negative (Negative); Urine Ketones Negative (Negative); Urine Protein Trace mg/dL (Neg-Trace)
[2022-11-09 14:17] LABS: Bacteria Urine 4+ (None Seen); Hyaline Casts Urine 0-2 /LPF (0-2); UACC Culture Trigger YES; WBC Urine 21-50 /HPF (0-5)
[2022-11-09 14:43] LABS: Alanine Aminotransferase 18 U/L (0-31); Albumin Level 4.1 g/dL (3.5-5.0); Alkaline Phosphatase 125 U/L (39-117); Anion Gap 11 (12-20); Aspartate Amino Transferase 15 U/L (5-31); Bilirubin Total 0.4 mg/dL (0.0-1.0); Blood Urea Nitrogen 12 mg/dL (9-16); Calcium 8.8 mg/dL (8.4-10.2); Carbon Dioxide 25 mmol/L (22-29); Chloride 108 mmol/L (96-108); Estimated Glomerular Filt Rate > 60; Glucose Random 93 mg/dL (60-115); Potassium 3.9 mmol/L (3.3-5.1); Sodium 140 mmol/L (135-145); Total Protein 6.7 g/dL (6.5-8.0)
[2022-11-09 15:03] LABS: Syphilis Screen Nonreactive (Nonreactive)
[2022-11-09] MEDS: cefTRIAXone sodium 500 MG, Lidocaine HCl 1 % MPF 1 ML IM (15:25)
[2022-11-09 17:01] LABS: CT PCR NOT DETECTED (Not Detect.); NG PCR NOT DETECTED (Not Detect.)
[2022-11-10 09:29] LABS: BV Int Neg Control Negative (Negative); BV Int Pos Control Positive (Positive)
[2022-11-13 22:33] LABS: HSV 1 IgM IFA Negative (Negative); HSV 2 IgM IFA Negative (Negative)
== END 2022-11-09 15:33 | disposition home or self-care (01) ==
PROVIDERS: Nurse Practitioner Family; Physician Assistant Medical; Emergency Provider Emergency Medicine
DX: A60.04 Herpesviral vulvovaginitis (principal); N76.0 Acute vaginitis; N39.0 Urinary tract infection, site not specified; B96.20 Unspecified Escherichia coli [E. coli] as the cause of diseases classified elsewhere
CPT/HCPCS: 0353U; 36415; 80053; 81001; 81025; 83735; 85025; 86695; 86696; 86780; 87086; 87088; 87186; 87255; 87480; 87510; 87660; 96372; 99282; 99284; J0696

== ENCOUNTER 2023-11-18 18:40 | Emergency (ER) | payer OTHER, SELFPAY ==
[2023-11-18 19:05] VITALS: BP 111/57; PULSE 122; RESP 16; TEMP 37.3; O2SAT 99; BMI 26.3
--- NOTE | 2023-11-18 19:12 | ED_ITS ---
HPI - General Adult General Chief complaint: Nausea/Vomiting/Diarrhea Stated complaint: N/V/D Time Seen by Provider: 11/18/23 19:37 Source: patient Mode of arrival: ambulatory Limitations: no limitations History of Present Illness HPI narrative: 28-year-old female presents emergency department with her 2 kids for nausea vomiting and diarrhea. She states she has had diarrhea all day. She was tachycardic. Her 2 children was sick 1st and then she started having issue. She denies any falls or injuries denies chest pain cough or fever she is some minor abdominal discomfort as well Onset (ago): day(s) Related Data Previous Rx's ?Medication ?Instructions ?Recorded ondansetron 4 mg disintegrating 4 mg PO Q8H 3 days #9 tabs 11/10/21 tablet cephalexin 500 mg capsule 500 mg PO TID #10 caps 12/11/21 prenat.vits,chandler,[id number] 1 tab PO DAILY #30 tabs 12/11/21 bisacodyl 10 mg rectal suppository 10 mg SC DAILY PRN constipation 10/24/22 (Laxative (bisacodyl)) #12 ea polyethylene glycol 3350 17 gram 17 g PO DAILY #30 ea 10/24/22 oral powder packet (Miralax) sennosides 8.6 mg tablet (senna) 8.6 mg PO BEDTIME #20 tabs 10/24/22 doxycycline monohydrate 100 mg 100 mg PO BID 7 days #14 caps 11/09/22 capsule fluconazole 150 mg tablet 150 mg PO Q72H 2 doses #2 tabs 11/09/22 (Diflucan) valacyclovir 1 gram tablet 1,000 mg PO BID #20 tabs 11/09/22 metronidazole 500 mg tablet 500 mg PO BID 7 days #14 tabs 11/12/22 ondansetron 4 mg disintegrating 4 mg PO Q6H #14 tabs 11/18/23 tablet Allergies Allergy/AdvReac Type Severity Reaction Status Date / Time banana [BANANA] Allergy Severe ANAPHYLAXIS Verified 11/18/23 19:07 rissa [RISSA] Allergy Mild HIVES Verified 11/18/23 19:07 pineapple [PINEAPPLE] Allergy Mild HIVES Verified 11/18/23 19:07 PEANUT BUTTER Allergy Severe ANAPHYLAXIS Uncoded 03/22/22 10:22 pineapple, rissa, banana Allergy Unknown hives Uncoded 03/22/22 10:22 Review of Systems 2 Review of Systems: Review of systems: General: Patient denies any fever chills recent illness or falls Musculoskeletal: Denies back pain or body aches or other injuries HEENT: denies headache, runny nose, ear pain Respiratory: denies shortness of breath, cough Cardiovascular: no chest pain or palpitations : denies dysuria, frequency Abdomen: no nausea vomiting denies abdominal pain Extremities: no swelling, no pain Skin: no diaphoresis Yes all other systems are reviewed and are negative PMFSH Past Medical History Medical History No known health problems Social History Social History Advance Directives: No Advance Directives Information Provided: No Physical Exam ED Vital Signs: Vital Signs - 24 hr 11/18/23 19:05 11/18/23 20:27 Temperature 99.1 F Pulse Rate 122 H 89 Respiratory Rate 16 Blood Pressure 111/57 L Pulse Oximetry 99 100 Oxygen Delivery Method Room Air Room Air BMI result Body Mass Index 26.3 General: Well-appearing well-nourished in no signs of distress HEENT: Normocephalic atraumatic Neck: No signs of JVD, no masses no tenderness or lymphadenopathy Cardiovascular: Regular rate and rhythm Respiratory: Clear to auscultation bilaterally Abdomen: Soft nontender no masses Extremities: Normal pedal pulses no signs of edema Skin: Dry warm no rashes Back: No tenderness full ROM Course Course Course Narrative: RME performed by Berenice Salmon PA-C. Patient is a 28 year old assigned male at presenting to the emergency department with nausea, vomiting, and recent exposure to a sick contact. Detailed physical exam and review of systems are deferred to the lug loader. Swabs ordered. Patient placed back in the waiting room pending room availability and results. Reevaluation(s) Reevaluation #1: [id number] Patient has had no episodes of vomiting or diarrhea here. Looks well HR improved. I will send home. Medications Administered Generic Name Dose Route Start Last Admin Trade Name Freq PRN Reason Stop Dose Admin Sodium Chloride 1,000 mls @ 999 mls/hr 11/18/23 19:45 11/18/23 20:07 Ns IV 11/18/23 20:45 999 mls/hr .[id number] MANJINDER Administration Discontinued Medications Generic Name Dose Route Start Last Admin Trade Name Ana PRN Reason Stop Dose Admin Ondansetron HCl 4 mg 11/18/23 19:39 11/18/23 20:06 Ondansetron Hcl 4 Mg/2 Ml Vial IVPUSH 11/18/23 19:40 4 mg ONCE ONE Administration Medical Decision Making Medical Decision Making [facility] Narrative: Patient looks well but is tachycardic we will give patient some fluids check labs and reassess COVID flu and RSV are pending at this time Differential Diagnosis Differential Diagnoses: The differential diagnosis associated with the presentation includes Nausea vomiting diarrhea COVID flu RSV Admission/Observation Consideration of admission/observation: Escalation of care including admission/observation considered Lab Data [facility] Lab Attestation statement: I reviewed the patient's lab results. 11/18/23 19:59 11/18/23 19:59 Labs: Lab Results 11/18/23 11/18/23 Range/Units 19:23 19:59 MPV Not Reportable Sodium 138 (135-145) mmol/L Potassium 4.3 (3.3-5.1) mmol/L Chloride 107 (96-108) mmol/L Carbon Dioxide 21 L (22-29) mmol/L Anion Gap 14 (12-20) BUN 19 H (9-16) mg/dL Creatinine 0.82 (0.5-1.4) mg/dL Estim Creat Clear Calc 81.2 Estimated GFR > 60 Random Glucose 114 (60-115) mg/dL Calcium 9.2 (8.4-10.2) mg/dL Total Bilirubin 1.1 H (0.0-1.0) mg/dL Direct Bilirubin 0.3 (0.0-0.5) mg/dL AST 17 (5-31) U/L ALT 13 (0-31) U/L Alkaline Phosphatase 121 H (39-117) U/L Total Protein 8.5 H (6.5-8.0) g/dL Albumin 4.5 (3.5-5.0) g/dL Lipase 18 (8-78) U/L Influenza Type A (PCR) NEGATIVE (Negative) Influenza Type B (PCR) NEGATIVE (Negative) RSV RNA Qual (PCR) NEGATIVE (Negative) SARS-CoV-2 RNA (RT-PCR) NEGATIVE (Negative) S. pyogenes GrpA PRINCESS Negative (Negative) Discharge Plan Discharge Clinical Impression: Vomiting, Diarrhea Patient Disposition: Home, Self-Care Instructions: Acute Nausea and Vomiting (ED), Acute Diarrhea (ED) Additional Instructions: You were seen today for nausea vomiting and diarrhea. You had labs and swabs done which were all unremarkable. Please call follow up with her doctor if you have any other concerns please do not hesitate to come back to emergency department. Prescriptions: New ondansetron 4 mg tablet,disintegrating 4 mg PO Q6H Qty: 14 0RF No Action prenat.vits,chandler,[id number] Tablet 1 tab PO DAILY Qty: 30 0RF cephalexin 500 mg capsule 500 mg PO TID Qty: 10 0RF ondansetron 4 mg tablet,disintegrating 4 mg PO Q8H 3 Days Qty: 9 0RF bisacodyl [Laxative (bisacodyl)] 10 mg suppository 10 mg SC DAILY PRN (Reason: constipation) Qty: 12 0RF polyethylene glycol 3350 [Miralax] 17 gram powder in packet 17 g PO DAILY Qty: 30 0RF sennosides [senna] 8.6 mg tablet 8.6 mg PO BEDTIME Qty: 20 0RF fluconazole [Diflucan] 150 mg tablet 150 mg PO Q72H Qty: 2 0RF valacyclovir 1 gram tablet 1,000 mg PO BID Qty: 20 0RF doxycycline monohydrate 100 mg capsule 100 mg PO BID 7 Days Qty: 14 0RF metronidazole 500 mg tablet 500 mg PO BID 7 Days Qty: 14 0RF Print Language: Vietnamese
--- NOTE | 2023-11-18 19:29 | MHC.EDTECH ---
Patient brought into triage area,sars/flu/rsv,and strep obtained and sent to lab.
[2023-11-18 19:48] LABS: IDNOW Serial# 58CA691E
[2023-11-18 19:49] LABS: Strep A Nucleic Acid Negative (Negative)
[2023-11-18] MEDS: ondansetron HCL 4 MG/2 ML VIAL IVPUSH (20:06)
[2023-11-18] MEDS: 0.9 % Sodium Chloride 1,000 ML 999 ML IV (20:07)
[2023-11-18 20:12] LABS: Influenza A PCR NEGATIVE (Negative); Influenza B PCR NEGATIVE (Negative); Resp Syncy Virus RNA Qual PCR NEGATIVE (Negative); SARS COV2 PCR INHOUSE NEGATIVE (Negative)
[2023-11-18 20:17] LABS: Basophils Percent Auto 0.2 % (0-2); Eosinophils Percent Auto 0.2 % (0-4); Hematocrit 37.7 % (37.0-47.0); Hemoglobin 11.5 g/dl (12.0-16.0); Imm Gran Abs Auto 0.03 X10*3/uL (0.00-0.03); Imm Gran Pct Auto 0.2 % (0.0-0.4); Lymphocytes Absolute Auto 0.5 X10*3/uL (1.2-4.9); Lymphocytes Percent Auto 4.4 % (20-40); MANUAL DIFF FLAG SCAN; Mean Corpuscular HGB Conc 30.5 g/dl (31.0-35.0); Mean Corpuscular Hemoglobin 22.5 pg (27.0-33.0); Mean Corpuscular Volume 73.9 fL (80.0-98.0); Monocytes Absolute Auto 0.6 X10*3/uL (0.1-1.2); Monocytes Percent Auto 5.2 % (2-11); Neutrophils Percent Auto 89.8 % (45-73); PLT CLUMP 1; Red Cell Distribution Width 16.1 % (11.0-16.0); SCAN SMEAR FLAG 1
[2023-11-18 20:21] LABS: Alanine Aminotransferase 13 U/L (0-31); Albumin Level 4.5 g/dL (3.5-5.0); Alkaline Phosphatase 121 U/L (39-117); Anion Gap 14 (12-20); Aspartate Amino Transferase 17 U/L (5-31); Bilirubin Direct 0.3 mg/dL (0.0-0.5); Bilirubin Total 1.1 mg/dL (0.0-1.0); Blood Urea Nitrogen 19 mg/dL (9-16); Calcium 9.2 mg/dL (8.4-10.2); Carbon Dioxide 21 mmol/L (22-29); Chloride 107 mmol/L (96-108); Creatinine Clr Calc Pharmacy 81.2; Estimated Glomerular Filt Rate > 60; Glucose Random 114 mg/dL (60-115); Lipase 18 U/L (8-78); Potassium 4.3 mmol/L (3.3-5.1); Sodium 138 mmol/L (135-145); Total Protein 8.5 g/dL (6.5-8.0)
[2023-11-18 20:27] VITALS: PULSE 89; O2SAT 100
[2023-11-18 20:40] LABS: Platelet Count 246 X10*3/uL (160-400); SLIDE REVIEW VERIFIED; White Blood Count 12.2 X10*3/uL (4.8-10.8)
[2023-11-18 21:06] VITALS: BP 111/57; PULSE 89; RESP 17; TEMP 37.2; O2SAT 99
== END 2023-11-18 21:10 | disposition home or self-care (01) ==
PROVIDERS: Physician Assistant Medical; Emergency Provider Student in an Organized Health Care Education/Training Program
DX: R11.10 Vomiting, unspecified (principal); R19.7 Diarrhea, unspecified
CPT/HCPCS: 0241U; 36415; 80048; 80076; 83690; 85025; 87651; 96361; 96374; 99284; J2405

== ENCOUNTER 2024-01-02 13:58 | Emergency (ER) | payer OTHER, SELFPAY ==
--- NOTE | ~2024-01-02 | XR_ITS ---
EXAMINATION: XR CHEST CLINICAL INFORMATION: Shortness of breath COMPARISON: Chest x-ray on 05/08/2022 TECHNIQUE: 2 views of the chest were obtained. FINDINGS: vascularity. LUNGS: Lungs are clear. No pneumothorax is seen. BONES: Bony skeleton is intact. XR/XR chest 2V IMPRESSION: Normal chest x-ray.
[2024-01-02 14:26] VITALS: BP 125/79; PULSE 118; RESP 22; TEMP 37.1; O2SAT 100; BMI 27.5
--- NOTE | 2024-01-02 14:26 | ED.URI ---
HPI - URI/Sore Throat General Chief Complaint: Dyspnea Stated Complaint: Diff breathing/Sore throat Time Seen by Provider: 01/02/24 21:13 Source: patient Mode of arrival: ambulatory History of Present Illness ED Provider: Dr. Martin HPI Narrative: 28-year-old female without significant past medical history comes in with onset of sore throat subjective fevers, cough, difficulty breathing that started this morning, she denies any history of oral contraceptive/recent flight/unilateral calf/leg pain or swelling/denies any recent surgeries or prior history of DVT or PE. She denies any sick contacts. Patient denies any abdominal pain/nausea/vomiting/diarrhea and denies any recent use of alcohol or marijuana. Related Data Previous Rx's ?Medication ?Instructions ?Recorded ondansetron 4 mg disintegrating 4 mg PO Q8H 3 days #9 tabs 11/10/21 tablet cephalexin 500 mg capsule 500 mg PO TID #10 caps 12/11/21 prenat.vits,chandler,[id number] 1 tab PO DAILY #30 tabs 12/11/21 bisacodyl 10 mg rectal suppository 10 mg NM DAILY PRN constipation 10/24/22 (Laxative (bisacodyl)) #12 ea polyethylene glycol 3350 17 gram 17 g PO DAILY #30 ea 10/24/22 oral powder packet (Miralax) sennosides 8.6 mg tablet (senna) 8.6 mg PO BEDTIME #20 tabs 10/24/22 doxycycline monohydrate 100 mg 100 mg PO BID 7 days #14 caps 11/09/22 capsule fluconazole 150 mg tablet 150 mg PO Q72H 2 doses #2 tabs 11/09/22 (Diflucan) valacyclovir 1 gram tablet 1,000 mg PO BID #20 tabs 11/09/22 metronidazole 500 mg tablet 500 mg PO BID 7 days #14 tabs 11/12/22 ondansetron 4 mg disintegrating 4 mg PO Q6H #14 tabs 11/18/23 tablet Allergies Allergy/AdvReac Type Severity Reaction Status Date / Time banana [BANANA] Allergy Severe ANAPHYLAXIS Verified 01/02/24 14:31 rissa [RISSA] Allergy Mild HIVES Verified 01/02/24 14:31 pineapple [PINEAPPLE] Allergy Mild HIVES Verified 01/02/24 14:31 PEANUT BUTTER Allergy Severe ANAPHYLAXIS Uncoded 01/02/24 14:31 pineapple, rissa, banana Allergy Unknown hives Uncoded 01/02/24 14:31 Review of Systems Review of Systems: Pertinent positives and negatives as stated in HPI PMFSH Past Medical History Source: nursing notes reviewed Medical History No known health problems Social History Social History Smoked in Last 30 Days: No Use of substances other than those prescribed or required for medical reasons: Yes Substance Use Type: Marijuana Substance Use Frequency: Monthly Advance Directives: No Advance Directives Information Provided: No Patient : No Physical Exam Vital Signs: Vital Signs: Last Vital Signs Temp 98.4 F 01/03/24 00:34 Pulse 122 H 01/03/24 00:34 Resp 22 H 01/03/24 00:34 BP 111/70 01/03/24 00:34 Pulse Ox 96 01/03/24 00:34 O2 Del Method Room Air 01/03/24 00:34 BMI result Body Mass Index 27.5 VITAL SIGNS: Reviewed. GENERAL: Well developed, well nourished, in no acute distress. HEAD: Normocephalic/atraumatic EYES: PERRLA, EOMI intact without pain, no nystagmus/pallor/icterus noted EARS: Ext canals without abnormality, TMs non-bulging and non-erythematous NOSE: Nares patent bilateral OROPHARYNX: no oral lesions noted, posterior pharynx clear and non-erythematous without noted tonsillar enlargement/erythema/exudates NECK: Supple, no adenopathy LUNGS: Normal breath sounds. No adventitious sounds or accessory muscle use. SpO2<97> CARDIOVASCULAR: Regular rate and rhythm without noted murmurs ABDOMEN: Soft, non-tender, non-distended with bowel sounds. MUSCULOSKELETAL: No tenderness, deformities, or effusions noted on gross inspection. EXTREMITIES: No cyanosis, clubbing or edema. SKIN: Inspection of the skin reveals no rashes NEUROLOGIC: Alert and oriented x 4. Strength and sensation to light touch were grossly intact x 4. Course Course Course Narrative: This is an RME: Additional HPI, ROS, PE not included below will be deferred to primary provider. RME assessment and note performed by: Jazz Adkins PA-C This is a [id number], with no known medical problems, who presents emergency department with complaints of shortness of breath, congestion, and sore throat since this morning. No sick contacts. Former smoker, quit 2 months ago. Right upper and right lower inspiratory and expiratory wheezes. Patient is tachycardic at 118 respirations 22. She has not on control, no recent travel, surgeries, hospitalizations. Plan: Labs, chest viral swabs strep Medications Administered Discontinued Medications Generic Name Dose Route Start Last Admin Trade Name Freq PRN Reason Stop Dose Admin Acetaminophen 975 mg 01/02/24 21:49 01/02/24 22:13 Acetaminophen 325 Mg Tablet PO 01/02/24 21:50 975 mg ONCE ONE Administration Ibuprofen 400 mg 01/02/24 21:49 01/02/24 22:13 Ibuprofen 400 Mg Tablet PO 01/02/24 21:50 400 mg ONCE ONE Administration Medical Decision Making Medical Decision Making MDM Narrative: 28-year-old female with history and clinical presentation, DDX: On clinical exam patient has a tactile fever and is tachycardic, she has no increased risk symptoms that would make me think of PE, I suspect patient has a viral illness or possible community-acquired pneumonia. I reviewed all investigations and hematologic indices demonstrate a mild elevation of leukocytes with a left shift, there is a stable microcytic anemia and patient reports a history of chronic anemia, there is no thrombocytopenia. Coagulation studies are within normal limits. Chemistry indices do not demonstrate an LYNDSAY or electrolyte derangements however there is noted mild elevation of transaminases, high sensitivity troponin is undetectable and beta hCG is undetectable. Influenza/RSV/COVID-19/rapid strep are negative. Chest x-ray without infiltrate or venous congestion. Will pursue antipyretics, hydration, mono screen I re-evaluated the patient, her temperature has significantly improved, although her heart rate has improved she still remains tachycardic in the 120s but reports feeling better, she continues to drink plenty of water, mono screen review is negative. Patient wishes to leave, I discussed with her that what we can do is send the D-dimer and I will contact her if it is elevated and she endorses to me that she will return tomorrow for CT angio of the chest if it is elevated. She has 2 young children at home that she needs to get back to. D-dimer undetectable. Patient was informed as the results were available just prior to her discharge. Differential Diagnosis Differential Diagnoses: The differential diagnosis associated with the presentation includes Please see the discussion above Admission/Observation Consideration of admission/observation: Escalation of care including admission/observation considered Please see the discussion above Lab Data MDM Lab Attestation statement: I reviewed the patient's lab results. Please see the discussion above 01/02/24 15:44 01/02/24 15:44 Labs: Lab Results 01/02/24 01/02/24 Range/Units 15:44 22:07 WBC 11.7 H (4.8-10.8) X10*3/uL RBC 4.71 (4.20-5.50) X10*6/uL Hgb 10.9 L (12.0-16.0) g/dl Hct 35.3 L (37.0-47.0) % MCV 74.9 L (80.0-98.0) fL MCH 23.1 L (27.0-33.0) pg MCHC 30.9 L (31.0-35.0) g/dl RDW 16.0 (11.0-16.0) % Plt Count 221 (160-400) X10*3/uL MPV 12.3 (9.4-12.3) fL Immature Gran % (Auto) 0.3 (0.0-0.4) % Neut % (Auto) 80.4 H (45-73) % Lymph % (Auto) 7.6 L (20-40) % Davidson % (Auto) 6.6 (2-11) % Eos % (Auto) 4.7 H (0-4) % Baso % (Auto) 0.4 (0-2) % Lymph # (Auto) 0.9 L (1.2-4.9) X10*3/uL Davidson # (Auto) 0.8 (0.1-1.2) X10*3/uL Eos # (Auto) 0.6 H (0.0-0.4) X10*3/uL Baso # (Auto) 0.1 (0.0-0.2) X10*3/uL Abs Immat Gran (auto) 0.04 H (0.00-0.03) X10*3/uL Absolute Neuts (auto) 9.4 H (2.0-8.3) x10*3/uL Absolute Nucleated RBC 0.000 (0.0-0.012) X10*3/uL Nucleated RBC % (auto) 0.0 (0.0-0.2) /100WBC PT 13.1 (11.1-13.3) SEC INR 1.1 (0.9-1.1) APTT 28.1 (26.0-36.8) SEC D-Dimer High Sensitivty < 150 NG/ML Sodium 139 (135-145) mmol/L Potassium 4.1 (3.3-5.1) mmol/L Chloride 106 (96-108) mmol/L Carbon Dioxide 24 (22-29) mmol/L Anion Gap 13 (12-20) BUN 8 L (9-16) mg/dL Creatinine 0.85 (0.5-1.4) mg/dL Estim Creat Clear Calc 80.2 Estimated GFR > 60 Random Glucose 108 (60-115) mg/dL Calcium 9.5 (8.4-10.2) mg/dL Total Bilirubin 0.5 (0.0-1.0) mg/dL Direct Bilirubin 0.2 (0.0-0.5) mg/dL AST 36 H (5-31) U/L ALT 38 H (0-31) U/L Alkaline Phosphatase 110 (39-117) U/L Troponin I High Sens < 2.7 (<3.5-17.0) ng/L Total Protein 7.7 (6.5-8.0) g/dL Albumin 4.5 (3.5-5.0) g/dL Beta HCG, Quant < 2 mIU/mL Monoscreen Negative (Negative) Influenza Type A (PCR) NEGATIVE (Negative) Influenza Type B (PCR) NEGATIVE (Negative) RSV RNA Qual (PCR) NEGATIVE (Negative) SARS-CoV-2 RNA (RT-PCR) NEGATIVE (Negative) S. pyogenes GrpA PRINCESS Negative (Negative) Independent Interpretation I performed an independent interpretation of an: EKG Interpretation: Sinus tachycardia, HR-112, no STEMI, nonspecific ST-T abnormalities, NM/QRS/QTC is within normal limits. There are no EKGs for comparison. Radiology Impression Discussion of test interpretation with radiology: I have reviewed the radiologist's reading. Radiologist Impression: Please see the discussion above External Record Review External record reviewed: Outpatient record, Prior outpatient labs and Prior outpatient radiology Critical Care Time Critical Care Time Critical Care Time: Yes Total Critical Care Time: 45 Attestation: I personally attest to this time spent taking care of the patient. Discharge Plan Discharge Clinical Impression: Viral syndrome, Fever, Sinus tachycardia Patient Disposition: Home, Self-Care Instructions: Fever in Adults (ED), Viral Syndrome (ED) Additional Instructions: As discussed, if the lab test is elevated you will receive a call from me and you will need to return tomorrow for further imaging studies. I will call you even if the test is negative at which time you should continue to remain well hydrated and take Tylenol and ibuprofen as needed for any temperatures greater than 100.4 and consider retesting yourself with a free home COVID-19 test. Prescriptions: No Action prenat.vits,chandler,evw-[id number] Tablet 1 tab PO DAILY Qty: 30 0RF cephalexin 500 mg capsule 500 mg PO TID Qty: 10 0RF ondansetron 4 mg tablet,disintegrating 4 mg PO Q8H 3 Days Qty: 9 0RF bisacodyl [Laxative (bisacodyl)] 10 mg suppository 10 mg NM DAILY PRN (Reason: constipation) Qty: 12 0RF polyethylene glycol 3350 [Miralax] 17 gram powder in packet 17 g PO DAILY Qty: 30 0RF sennosides [senna] 8.6 mg tablet 8.6 mg PO BEDTIME Qty: 20 0RF ondansetron 4 mg tablet,disintegrating 4 mg PO Q6H Qty: 14 0RF fluconazole [Diflucan] 150 mg tablet 150 mg PO Q72H Qty: 2 0RF valacyclovir 1 gram tablet 1,000 mg PO BID Qty: 20 0RF doxycycline monohydrate 100 mg capsule 100 mg PO BID 7 Days Qty: 14 0RF metronidazole 500 mg tablet 500 mg PO BID 7 Days Qty: 14 0RF Interventions: ED Discharge Assessment Last Done: 01/03/24 00:34 Discharge Date/Time: 01/03/24 00:36 Print Language: Greenlandic
--- NOTE | 2024-01-02 14:31 | ECG_ITS ---
Test Reason : TACHYCARDIA Blood Pressure : / mmHG Vent. Rate : 112 BPM Atrial Rate : 112 BPM P-R Int : 140 ms QRS Dur : 082 ms QT Int : 320 ms P-R-T Axes : 061 042 -13 degrees QTc Int : 436 ms Sinus tachycardia Nonspecific ST and T wave abnormality Abnormal ECG No previous ECGs available Referred By: Jazz Adkins Electronically Signed By:Sammy Escobar
[2024-01-02 16:03] LABS: MANUAL DIFF FLAG NO
[2024-01-02 16:05] LABS: Basophils Absolute Auto 0.1 X10*3/uL (0.0-0.2); Basophils Percent Auto 0.4 % (0-2); Eosinophils Absolute Auto 0.6 X10*3/uL (0.0-0.4); Eosinophils Percent Auto 4.7 % (0-4); Hematocrit 35.3 % (37.0-47.0); Hemoglobin 10.9 g/dl (12.0-16.0); Imm Gran Abs Auto 0.04 X10*3/uL (0.00-0.03); Imm Gran Pct Auto 0.3 % (0.0-0.4); Lymphocytes Absolute Auto 0.9 X10*3/uL (1.2-4.9); Lymphocytes Percent Auto 7.6 % (20-40); Mean Corpuscular HGB Conc 30.9 g/dl (31.0-35.0); Mean Corpuscular Hemoglobin 23.1 pg (27.0-33.0); Mean Corpuscular Volume 74.9 fL (80.0-98.0); Mean Platelet Volume 12.3 fL (9.4-12.3); Monocytes Absolute Auto 0.8 X10*3/uL (0.1-1.2); Monocytes Percent Auto 6.6 % (2-11); Neutrophils Absolute Auto 9.4 x10*3/uL (2.0-8.3); Neutrophils Percent Auto 80.4 % (45-73); Platelet Count 221 X10*3/uL (160-400); Red Blood Count 4.71 X10*6/uL (4.20-5.50); White Blood Count 11.7 X10*3/uL (4.8-10.8)
[2024-01-02 16:11] LABS: INTERNATIONAL NORM RATIO 1.1 (0.9-1.1); Prothrombin Time 13.1 SEC (11.1-13.3)
[2024-01-02 16:14] LABS: Partial Thromboplastin Time 28.1 SEC (26.0-36.8)
[2024-01-02 16:17] LABS: IDNOW Serial# 6674DD1D; Strep A Nucleic Acid Negative (Negative)
[2024-01-02 16:21] LABS: Alanine Aminotransferase 38 U/L (0-31); Albumin Level 4.5 g/dL (3.5-5.0); Alkaline Phosphatase 110 U/L (39-117); Anion Gap 13 (12-20); Aspartate Amino Transferase 36 U/L (5-31); Bilirubin Direct 0.2 mg/dL (0.0-0.5); Bilirubin Total 0.5 mg/dL (0.0-1.0); Blood Urea Nitrogen 8 mg/dL (9-16); Calcium 9.5 mg/dL (8.4-10.2); Carbon Dioxide 24 mmol/L (22-29); Chloride 106 mmol/L (96-108); Creatinine Clr Calc Pharmacy 80.2; Estimated Glomerular Filt Rate > 60; Glucose Random 108 mg/dL (60-115); Potassium 4.1 mmol/L (3.3-5.1); Sodium 139 mmol/L (135-145); Total Protein 7.7 g/dL (6.5-8.0)
[2024-01-02 16:35] LABS: Troponin-I High Sensitivity < 2.7 ng/L (<3.5-17.0)
[2024-01-02 16:42] VITALS: BP 107/56; PULSE 107; RESP 18; TEMP 36.9; O2SAT 99
[2024-01-02 16:54] LABS: Influenza A PCR NEGATIVE (Negative); Influenza B PCR NEGATIVE (Negative); Resp Syncy Virus RNA Qual PCR NEGATIVE (Negative); SARS COV2 PCR INHOUSE NEGATIVE (Negative)
[2024-01-02 21:04] VITALS: BP 112/63; PULSE 125; RESP 15; TEMP 38.9; O2SAT 97
[2024-01-02 21:48] LABS: HCG Quantitative < 2 mIU/mL
[2024-01-02 22:01] VITALS: BP 94/54; PULSE 118; RESP 29; TEMP 39; O2SAT 96
[2024-01-02] MEDS: Acetaminophen 325 MG TABLET 975 MG PO (22:13)
[2024-01-02] MEDS: Ibuprofen 400 MG TABLET PO (22:13)
[2024-01-02 22:36] LABS: Monotest Negative (Negative)
[2024-01-02 23:45] VITALS: BP 111/70; PULSE 122; RESP 22; TEMP 36.9; O2SAT 96
[2024-01-03 00:28] LABS: D Dimer High Sensitivity < 150 NG/ML
[2024-01-03 00:34] VITALS: BP 111/70; PULSE 122; RESP 22; TEMP 36.9; O2SAT 96
== END 2024-01-03 00:36 | disposition home or self-care (01) ==
PROVIDERS: Physician Assistant Medical; Emergency Provider Student in an Organized Health Care Education/Training Program
DX: B34.9 Viral infection, unspecified (principal); R50.9 Fever, unspecified; R00.0 Tachycardia, unspecified; R05.9 Cough, unspecified; R06.02 Shortness of breath; Z03.818 Encounter for observation for suspected exposure to other biological agents ruled out
CPT/HCPCS: 0241U; 36415; 71046; 80048; 80076; 84484; 84702; 85025; 85379; 85610; 85730; 86308; 87651; 93005; 99283; 99285

== ENCOUNTER → 2024-01-02 14:31 | Outpatient (BNV) | payer OTHER, SELFPAY | PROVIDERS: Emergency Provider Student in an Organized Health Care Education/Training Program; Visit Provider Internal Medicine Cardiovascular Disease | DX: R94.31 Abnormal electrocardiogram [ECG] [EKG] (principal) | CPT/HCPCS: 93010 ==

== ENCOUNTER 2024-06-26 12:04 | Emergency (ER) | payer OTHER, SELFPAY ==
--- NOTE | ~2024-06-26 | CT_ITS ---
EXAMINATION: CT ABDOMEN AND PELVIS WITHOUT CONTRAST CLINICAL INFORMATION: Left flank pain COMPARISON: 01/28/2020 TECHNIQUE: Multidetector volumetric imaging was performed from the superior aspect of the liver through the pubic symphysis. Sagittal and coronal reformatted images were obtained on the technologist's workstation. This CT examination was performed using dose optimization techniques as appropriate, variously including the following: *Automated exposure control *Adjustment of mA and/or kV according to patient size (this includes techniques or standardized protocols for targeted exams where dose is matched to indication/reason for exam; i.e. extremities or head) *Use of iterative reconstruction technique DLP: 530 mGy-cm FINDINGS: LUNG BASES: There is a left anterior lower lobe versus lingular consolidation suspicious for pneumonia. LIVER, GALLBLADDER, AND BILIARY TREE: The liver is normal in size, shape, and attenuation. No focal hepatic lesion or biliary ductal dilatation is present. The gallbladder is unremarkable with no evidence of radiopaque gallstones, gallbladder wall thickening, or obvious pericholecystic inflammatory changes. PANCREAS: Unremarkable. SPLEEN: Unremarkable. ADRENAL GLANDS: Unremarkable. KIDNEYS AND URETERS: The kidneys are normal in size, shape, and attenuation. No hydronephrosis, hydroureter, or calculi seen. No perinephric stranding. BLADDER: Unremarkable. GASTROINTESTINAL TRACT: Large stool burden in the rectal vault. There is no bowel obstruction or right or left lower quadrant inflammatory change. Small structure at the base of the cecum may reflect the appendix but there is no adjacent inflammation. ABDOMINAL WALL: Small fat-containing umbilical hernia. Bowel does not participate. LYMPH NODES: Normal. VASCULAR: Unremarkable. PELVIC VISCERA: Unremarkable. OSSEOUS STRUCTURES: Unremarkable. CT/CT abdomen pelvis wo IV con IMPRESSION: Left basilar infiltrate likely pneumonia. No evidence for left nephrolithiasis or hydronephrosis. Fleischner guidelines were followed. Electronically signed by: Semaj Pacheco MD 06/26/2024 05:49 PM J[facility]
--- NOTE | ~2024-06-26 | XR_ITS ---
EXAMINATION: XR chest 2V CLINICAL INFORMATION: cough, left sided pain, PNA on CT abd COMPARISON: 05/08/2022 TECHNIQUE: 2 views of the chest FINDINGS: Left lung base consolidation likely reflects infection. Small left effusion. No pneumothorax. No pleural effusion. Normal cardiomediastinal silhouette. XR/XR chest 2V IMPRESSION: Left lung base consolidation likely reflects infection. Small left effusion. Electronically signed by: Lisseth Abdul MD 06/26/2024 07:22 PM [facility]
[2024-06-26 12:43] VITALS: BP 106/60; PULSE 119; RESP 18; TEMP 36.4; O2SAT 98; BMI 30.1
--- NOTE | 2024-06-26 12:43 | ED.GENADULT ---
HPI - General Adult General Chief complaint: Abdominal Pain Stated complaint: kidney pain Time Seen by Provider: 06/26/24 18:12 History of Present Illness ED Provider: Sam GHOTRA narrative: The patient is a 29-year-old female who comes to the emergency room with left-sided pain. She says that she was fine yesterday but developed pain on her left side last night that brought her to the emergency room today. She has a history of kidney stones. She says that this does not really feel like a kidney stone. She has had some tendency to cough but she finds coughing painful. She also says that breathing is painful. She says that she has had occasional coughing which is painful but no sputum production. She does not really feel short of breath. She has had no urinary discomfort. No nausea or vomiting. She feels hungry because she has not eaten all day. Related Data Previous Rx's ?Medication ?Instructions ?Recorded ondansetron 4 mg disintegrating 4 mg PO Q8H 3 days #9 tabs 11/10/21 tablet cephalexin 500 mg capsule 500 mg PO TID #10 caps 12/11/21 prenat.vits,chandler,zdl-wabu-dhtyz 1 tab PO DAILY #30 tabs 12/11/21 bisacodyl 10 mg rectal suppository 10 mg NC DAILY PRN constipation 10/24/22 (Laxative (bisacodyl)) #12 ea polyethylene glycol 3350 17 gram 17 g PO DAILY #30 ea 10/24/22 oral powder packet (Miralax) sennosides 8.6 mg tablet (senna) 8.6 mg PO BEDTIME #20 tabs 10/24/22 doxycycline monohydrate 100 mg 100 mg PO BID 7 days #14 caps 11/09/22 capsule fluconazole 150 mg tablet 150 mg PO Q72H 2 doses #2 tabs 11/09/22 (Diflucan) valacyclovir 1 gram tablet 1,000 mg PO BID #20 tabs 11/09/22 metronidazole 500 mg tablet 500 mg PO BID 7 days #14 tabs 11/12/22 ondansetron 4 mg disintegrating 4 mg PO Q6H #14 tabs 11/18/23 tablet azithromycin 250 mg tablet 250 mg PO DAILY 4 days #4 tabs 06/26/24 cefuroxime axetil 500 mg tablet 500 mg PO BID #20 tabs 06/26/24 ibuprofen 400 mg tablet 400 mg PO Q6H PRN pain #14 tabs 06/26/24 Allergies Allergy/AdvReac Type Severity Reaction Status Date / Time banana [BANANA] Allergy Severe ANAPHYLAXIS Verified 06/26/24 12:44 rissa [RISSA] Allergy Mild HIVES Verified 06/26/24 12:44 pineapple [PINEAPPLE] Allergy Mild HIVES Verified 06/26/24 12:44 PEANUT BUTTER Allergy Severe ANAPHYLAXIS Uncoded 01/02/24 14:31 pineapple, rissa, banana Allergy Unknown hives Uncoded 01/02/24 14:31 Review of Systems Review of Systems: Yes all other systems are reviewed and are negative PMFSH Past Medical History Medical History No known health problems Social History Social History Smoked in Last 30 Days: No Use of substances other than those prescribed or required for medical reasons: No Substance Use Type: Marijuana Advance Directives: No Advance Directives Information Provided: No Do you have a plan to hurt others: No Plan Patient : No Physical Exam ED Vital Signs: Vital Signs - 24 hr 06/26/24 12:43 06/26/24 18:06 06/26/24 21:04 Temperature 97.6 F 98.3 F 98.3 F Pulse Rate 119 H 119 H 112 H Respiratory Rate 18 18 16 Blood Pressure 106/60 102/55 L 95/56 L Pulse Oximetry 98 100 99 Oxygen Delivery Method Room Air Room Air Room Air 06/26/24 23:42 06/27/24 00:06 Temperature 99.2 F 99.2 F Pulse Rate 98 98 Respiratory Rate 16 16 Blood Pressure 96/56 L 96/56 L Pulse Oximetry 96 96 Oxygen Delivery Method Room Air Room Air BMI result Body Mass Index 30.1 Const Other: The patient is awake and alert. She looks slightly pale. She does not seem in any respiratory distress. She looks somewhat unwell but not acutely toxic. HENMT Other: Face is symmetrical. Mucous membranes moist. Eyes Other: Pupils are round equal, conjunctivae are clear, extraocular movements intact Neck Other: Moving her neck easily, no adenopathy Resp Other: No increased work of breathing. There is diminished air entry at the left base. No yamini crackles or wheezes. Cardio Rate: tachycardic Rhythm: regular rhythm Heart sounds: S1 normal heart sound present and S2 normal heart sound present GI Other: Abdomen is soft and nontender Skin Other: Skin is pale and dry Neuro Other: The patient is awake and alert. Mental status is normal. Cranial nerves are grossly intact. She moves her extremities appropriately. No focal neurological findings. Extrem Other: No peripheral edema. No calf swelling or tenderness. Course Course Course Narrative: This is a rapid medical exam performed by Bill Soto NP: Additional HPI, ROS, PE not included below will be deferred to primary provider. Patient is a 29-year-old F with pmhx of kidney stone presenting with complaint of left sided flank pain radiating to chest. Plan: labs, ua, CT Medications Administered Discontinued Medications Generic Name Dose Route Start Last Admin Trade Name Freq PRN Reason Stop Dose Admin Acetaminophen 975 mg 06/26/24 20:15 06/26/24 20:34 Acetaminophen 325 Mg Tablet PO 06/26/24 20:16 975 mg ONCE ONE Administration Ceftriaxone Sodium 1 gm 06/26/24 18:58 06/26/24 19:30 Ceftriaxone Sodium 1 Gm Vial IVPUSH 06/26/24 18:59 1 gm ONCE ONE Administration Sodium Chloride 1,000 mls @ 999 mls/hr 06/26/24 18:45 06/26/24 21:18 Ns IV 06/26/24 19:45 Infused .Q1H1M MANJINDER Infusion Azithromycin 500 mg/ Sodium 250 mls @ 125 mls/hr 06/26/24 18:59 06/26/24 22:15 Chloride IV 06/26/24 20:58 Infused ONCE ONE Infusion Sodium Chloride 1,000 mls @ 999 mls/hr 06/26/24 22:15 06/26/24 23:32 Ns IV 06/26/24 23:15 Infused .Q1H1M MANJINDER Infusion Ketorolac Tromethamine 10 mg 06/26/24 20:15 06/26/24 20:35 Ketorolac Tromethamine 15 Mg/Ml Vial IVPUSH 06/26/24 20:16 10 mg ONCE ONE Administration Medical Decision Making Medical Decision Making MDM Narrative: The patient is a 29-year-old female who presents to the emergency room with less than 24 hours of left-sided discomfort. At triage the patient's suggested that possibly this could be kidney stone discomfort and a CT of the abdomen and pelvis was ordered at triage which showed no kidney stones but did show and left lower lobe infiltrate which was [place]. [place] [address]. Somewhat surprisingly she did not have a fever. Blood cultures were obtained and she was started on ceftriaxone and azithromycin. She was given IV fluids. The patient's chief complaint was pain related to the pneumonia which is pleural-based. She felt better after a dose of ketorolac and acetaminophen. She does not feel short of breath nor did she looks short of breath. An initial lactate was 2.4. A repeat lactate was 2.0. The patient received IV ceftriaxone, IV azithromycin 2 L of crystalloid. Overall she felt considerably better. Given that the patient's oxygenation was good and her tachycardia improved and that she felt on the whole hungry and reasonably well I discussed the question of whether she should be hospitalized or go home having received antibiotics which should cover her for 24 hours. The patient ultimately opted for a trial of management at home. I do not think this is unreasonable. She knows she should return if she feels worse. Lab Data 06/26/24 17:12 06/26/24 17:12 Labs: Lab Results 06/26/24 06/26/24 06/26/24 Range/Units 16:36 17:12 18:50 WBC 23.5 H (4.8-10.8) X10*3/uL RBC 4.17 L (4.20-5.50) X10*6/uL Hgb 9.7 L (12.0-16.0) g/dl Hct 31.4 L (37.0-47.0) % MCV 75.3 L (80.0-98.0) fL MCH 23.3 L (27.0-33.0) pg MCHC 30.9 L (31.0-35.0) g/dl RDW 16.4 H (11.0-16.0) % Plt Count 299 D (160-400) X10*3/uL MPV 11.3 (9.4-12.3) fL Immature Gran % (Auto) 0.9 H (0.0-0.4) % Neut % (Auto) 86.7 H (45-73) % Lymph % (Auto) 5.7 L (20-40) % [place] % (Auto) 6.5 (2-11) % Eos % (Auto) 0.0 (0-4) % Baso % (Auto) 0.2 (0-2) % Lymph # (Auto) 1.3 (1.2-4.9) X10*3/uL [place] # (Auto) 1.5 H (0.1-1.2) X10*3/uL Eos # (Auto) 0.0 (0.0-0.4) X10*3/uL Baso # (Auto) 0.1 (0.0-0.2) X10*3/uL Abs Immat Gran (auto) 0.21 H (0.00-0.03) X10*3/uL Absolute Neuts (auto) 20.4 H (2.0-8.3) x10*3/uL Absolute Nucleated RBC 0.000 (0.0-0.012) X10*3/uL Nucleated RBC % (auto) 0.0 (0.0-0.2) /100WBC Smear Tech's Comments VERIFIED Sodium 140 (135-145) mmol/L Potassium 3.9 (3.3-5.1) mmol/L Chloride 105 (96-108) mmol/L Carbon Dioxide 24 (22-29) mmol/L Anion Gap 15 (12-20) BUN 10 (9-16) mg/dL Creatinine 0.72 (0.5-1.4) mg/dL Estim Creat Clear Calc 98.1 Estimated GFR > 60 Random Glucose 99 (60-115) mg/dL Lactic Acid 2.4 H* (0.5-2.0) mmol/L Lactic Acid F/U @ 2Hr (0.5-2.0) mmol/L Calcium 9.4 (8.4-10.2) mg/dL Total Bilirubin 1.1 H (0.0-1.0) mg/dL AST 19 (5-31) U/L ALT 21 (0-31) U/L Alkaline Phosphatase 119 H (39-117) U/L C-Reactive Protein 16.08 H (< or = 0.50) mg/dL Total Protein 7.6 (6.5-8.0) g/dL Albumin 4.2 (3.5-5.0) g/dL Beta HCG, Quant < 2 mIU/mL Urine Color Yellow Urine Appearance Cloudy Urine pH 8.0 (5.0-9.0) Ur Specific [place] 1.020 (1.005-1.025) Urine Protein Trace (Neg-Trace) mg/dL Urine Glucose (UA) Negative (Negative) mg/dL Urine Ketones Negative (Negative) mg/dL Urine Blood Trace H (Negative) Urine Nitrite Negative (Negative) Ur Leukocyte Esterase Moderate (2+) H (Negative) Urine RBC 0-2 (0-2) /HPF Urine WBC 21-50 H (0-5) /HPF Ur Squamous Epith Cells 11-20 (0-2) /HPF Urine Bacteria 4+ (None Seen) Hyaline Casts 0-2 (0-2) /LPF Urine Test NEGATIVE (NEGATIVE) 06/26/24 Range/Units 21:11 WBC (4.8-10.8) X10*3/uL RBC (4.20-5.50) X10*6/uL Hgb (12.0-16.0) g/dl Hct (37.0-47.0) % MCV (80.0-98.0) fL MCH (27.0-33.0) pg MCHC (31.0-35.0) g/dl RDW (11.0-16.0) % Plt Count (160-400) X10*3/uL MPV (9.4-12.3) fL Immature Gran % (Auto) (0.0-0.4) % Neut % (Auto) (45-73) % Lymph % (Auto) (20-40) % [place] % (Auto) (2-11) % Eos % (Auto) (0-4) % Baso % (Auto) (0-2) % Lymph # (Auto) (1.2-4.9) X10*3/uL [place] # (Auto) (0.1-1.2) X10*3/uL Eos # (Auto) (0.0-0.4) X10*3/uL Baso # (Auto) (0.0-0.2) X10*3/uL Abs Immat Gran (auto) (0.00-0.03) X10*3/uL Absolute Neuts (auto) (2.0-8.3) x10*3/uL Absolute Nucleated RBC (0.0-0.012) X10*3/uL Nucleated RBC % (auto) (0.0-0.2) /100WBC Smear Tech's Comments Sodium (135-145) mmol/L Potassium (3.3-5.1) mmol/L Chloride (96-108) mmol/L Carbon Dioxide (22-29) mmol/L Anion Gap (12-20) BUN (9-16) mg/dL Creatinine (0.5-1.4) mg/dL Estim Creat Clear Calc Estimated GFR Random Glucose (60-115) mg/dL Lactic Acid (0.5-2.0) mmol/L Lactic Acid F/U @ 2Hr 2.0 (0.5-2.0) mmol/L Calcium (8.4-10.2) mg/dL Total Bilirubin (0.0-1.0) mg/dL AST (5-31) U/L ALT (0-31) U/L Alkaline Phosphatase (39-117) U/L C-Reactive Protein (< or = 0.50) mg/dL Total Protein (6.5-8.0) g/dL Albumin (3.5-5.0) g/dL Beta HCG, Quant mIU/mL Urine Color Urine Appearance Urine pH (5.0-9.0) Ur Specific [place] (1.005-1.025) Urine Protein (Neg-Trace) mg/dL Urine Glucose (UA) (Negative) mg/dL Urine Ketones (Negative) mg/dL Urine Blood (Negative) Urine Nitrite (Negative) Ur Leukocyte Esterase (Negative) Urine RBC (0-2) /HPF Urine WBC (0-5) /HPF Ur Squamous Epith Cells (0-2) /HPF Urine Bacteria (None Seen) Hyaline Casts (0-2) /LPF Urine Test (NEGATIVE) Discharge Plan Discharge Clinical Impression: Left lower lobe pneumonia Patient Disposition: Home, Self-Care Additional Instructions: Please merchandise pickup/receiving associate the antibiotics at the pharmacy in the morning and start taking the antibiotics in the morning. Take the cefuroxime 2 times a day. Take the azithromycin once a day. You may use ibuprofen every 6 hours as needed for discomfort or fever. You may also take 2 extra-strength acetaminophen (Tylenol) up to 3 times a day as needed. Drink lot of fluids. Please work on getting a new primary care doctor. Plan on taking the rest of the week off from work. If you feel worse at any time please return to the emergency room for further evaluation. Prescriptions: New cefuroxime axetil 500 mg tablet 500 mg PO BID Qty: 20 0RF azithromycin 250 mg tablet 250 mg PO DAILY 4 Days Qty: 4 0RF Rx Instructions: start on day 2 of therapy ibuprofen 400 mg tablet 400 mg PO Q6H PRN (Reason: pain) Qty: 14 0RF No Action prenat.vits,chandler,iex-xfnw-lqwmo Tablet 1 tab PO DAILY Qty: 30 0RF cephalexin 500 mg capsule 500 mg PO TID Qty: 10 0RF ondansetron 4 mg tablet,disintegrating 4 mg PO Q8H 3 Days Qty: 9 0RF bisacodyl [Laxative (bisacodyl)] 10 mg suppository 10 mg NC DAILY PRN (Reason: constipation) Qty: 12 0RF polyethylene glycol 3350 [Miralax] 17 gram powder in packet 17 g PO DAILY Qty: 30 0RF sennosides [senna] 8.6 mg tablet 8.6 mg PO BEDTIME Qty: 20 0RF ondansetron 4 mg tablet,disintegrating 4 mg PO Q6H Qty: 14 0RF fluconazole [Diflucan] 150 mg tablet 150 mg PO Q72H Qty: 2 0RF valacyclovir 1 gram tablet 1,000 mg PO BID Qty: 20 0RF doxycycline monohydrate 100 mg capsule 100 mg PO BID 7 Days Qty: 14 0RF metronidazole 500 mg tablet 500 mg PO BID 7 Days Qty: 14 0RF Stand Alone Forms: Work/School Release Interventions: ED Discharge Assessment Last Done: 06/27/24 00:06 Discharge Date/Time: 06/27/24 00:07 Print Language: Lithuanian
[2024-06-26 16:46] LABS: Appearance Urine Cloudy; Color Urine Yellow; Glucose Urine UA Negative (Negative); Leukocyte Esterase Urine Moderate (2+) (Negative); Nitrite Urine Negative (Negative); UMIC TRIGGER UACC YES; Urine Blood Trace (Negative); Urine Ketones Negative (Negative); Urine Protein Trace mg/dL (Neg-Trace)
[2024-06-26 16:48] LABS: UPreg QC Valid YES; Urine Pregnancy NEGATIVE (NEGATIVE)
[2024-06-26 16:49] LABS: Bacteria Urine 4+ (None Seen); Hyaline Casts Urine 0-2 /LPF (0-2); RBC Urine 0-2 /HPF (0-2); UACC Culture Trigger YES; WBC Urine 21-50 /HPF (0-5)
[2024-06-26 17:17] LABS: Basophils Absolute Auto 0.1 X10*3/uL (0.0-0.2); Basophils Percent Auto 0.2 % (0-2); Hematocrit 31.4 % (37.0-47.0); Hemoglobin 9.7 g/dl (12.0-16.0); Imm Gran Abs Auto 0.21 X10*3/uL (0.00-0.03); Imm Gran Pct Auto 0.9 % (0.0-0.4); Lymphocytes Absolute Auto 1.3 X10*3/uL (1.2-4.9); Lymphocytes Percent Auto 5.7 % (20-40); Mean Corpuscular HGB Conc 30.9 g/dl (31.0-35.0); Mean Corpuscular Hemoglobin 23.3 pg (27.0-33.0); Mean Corpuscular Volume 75.3 fL (80.0-98.0); Mean Platelet Volume 11.3 fL (9.4-12.3); Monocytes Absolute Auto 1.5 X10*3/uL (0.1-1.2); Monocytes Percent Auto 6.5 % (2-11); Neutrophils Absolute Auto 20.4 x10*3/uL (2.0-8.3); Neutrophils Percent Auto 86.7 % (45-73); Platelet Count 299 X10*3/uL (160-400); Red Blood Count 4.17 X10*6/uL (4.20-5.50); Red Cell Distribution Width 16.4 % (11.0-16.0); SCAN SMEAR FLAG 1; White Blood Count 23.5 X10*3/uL (4.8-10.8)
[2024-06-26 17:19] LABS: MANUAL DIFF FLAG SCAN
[2024-06-26 17:38] LABS: SLIDE REVIEW VERIFIED
[2024-06-26 17:39] LABS: Alanine Aminotransferase 21 U/L (0-31); Albumin Level 4.2 g/dL (3.5-5.0); Alkaline Phosphatase 119 U/L (39-117); Anion Gap 15 (12-20); Aspartate Amino Transferase 19 U/L (5-31); Bilirubin Total 1.1 mg/dL (0.0-1.0); Blood Urea Nitrogen 10 mg/dL (9-16); Calcium 9.4 mg/dL (8.4-10.2); Carbon Dioxide 24 mmol/L (22-29); Chloride 105 mmol/L (96-108); Creatinine Clr Calc Pharmacy 98.1; Estimated Glomerular Filt Rate > 60; Glucose Random 99 mg/dL (60-115); HCG Quantitative < 2 mIU/mL; Potassium 3.9 mmol/L (3.3-5.1); Sodium 140 mmol/L (135-145); Total Protein 7.6 g/dL (6.5-8.0)
[2024-06-26 18:06] VITALS: BP 102/55; PULSE 119; RESP 18; TEMP 36.8; O2SAT 100
[2024-06-26 18:59] LABS: C Reactive Protein 16.08 mg/dL (< or = 0.50)
[2024-06-26 19:17] LABS: Lactic Acid 2.4 mmol/L (0.5-2.0)
[2024-06-26] MEDS: 0.9 % Sodium Chloride 1,000 ML 999 ML IV ×2 (19:24→22:28)
[2024-06-26] MEDS: cefTRIAXone sodium 1 GM VIAL IVPUSH (19:30)
[2024-06-26] MEDS: Azithromycin 500 MG in 0.9 % Sodium Chloride 250 ML 125 MG IV (19:40)
[2024-06-26] MEDS: Acetaminophen 325 MG TABLET 975 MG PO (20:34)
[2024-06-26] MEDS: Ketorolac Tromethamine 15 MG/ML VIAL 10 MG IVPUSH (20:35)
--- NOTE | 2024-06-26 20:36 | PC.NURSE ---
1900-late entry- pt a&ox4, respirations even and unlabored. pt reporting 10/10 chest pain, provider aware. at this time, pt medicated per oct.
[2024-06-26 20:55] LABS: Reflex Lactate? Lactic Acid Added
[2024-06-26 21:04] VITALS: BP 95/56; PULSE 112; RESP 16; TEMP 36.8; O2SAT 99
[2024-06-26 23:42] VITALS: BP 96/56; PULSE 98; RESP 16; TEMP 37.3; O2SAT 96
--- NOTE | 2024-06-26 23:42 | MHC.EDTECH ---
This tech took over care of patient at 2300,rounded and introduced self to pt,vitals taken,BP is low RN made aware,pt appears to be comfortable, boyfriend at bedside,call monique in reach
[2024-06-27 00:06] VITALS: BP 96/56; PULSE 98; RESP 16; TEMP 37.3; O2SAT 96
== END 2024-06-27 00:07 | disposition home or self-care (01) ==
PROVIDERS: Registered Nurse Emergency; Emergency Provider Emergency Medicine
DX: J18.9 Pneumonia, unspecified organism (principal); R10.9 Unspecified abdominal pain; R05.9 Cough, unspecified; R91.8 Other nonspecific abnormal finding of lung field; Z87.442 Personal history of urinary calculi
CPT/HCPCS: 36415; 71046; 74176; 80053; 81001; 81025; 83605; 84702; 85025; 86140; 87040; 87086; 96361; 96365; 96375; 99284; J0456; J0696; J1885

== ENCOUNTER 2024-09-04 08:28 | Emergency (ER) | payer OTHER, SELFPAY ==
--- NOTE | ~2024-09-04 | US_ITS ---
CLINICAL HISTORY: pain, lump, r o abscess Ultrasound right breast Comparison: None Findings: There is a 4.1 x 3.9 x 6.4 cm solid , circumscribed hypoechoic mass within the right breast at 9:00 a.m. in the area of palpable concern. Internal blood flow is documented. There is no fluid collection. Remaining breast tissue was not evaluated. The axilla were not evaluated. Impression: 1. There is a 6.4 cm solid mass within the right breast. Biopsy recommended. This document has been electronically signed by: Mariela Méndez MD on 09/04/2024 16:15:15
[2024-09-04 08:33] VITALS: BP 119/57; PULSE 95; RESP 16; O2SAT 100; BMI 31.1
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
[2024-09-04 13:11] VITALS: BP 112/60; PULSE 75; RESP 18; TEMP 36.9; O2SAT 100
[2024-09-04 17:04] VITALS: BP 112/60; PULSE 75; RESP 18; TEMP 36.9; O2SAT 100
== END 2024-09-04 17:05 | disposition home or self-care (01) ==
PROVIDERS: Emergency Provider Emergency Medicine
DX: N63.10 Unspecified lump in the right breast, unspecified quadrant (principal); N64.4 Mastodynia; Z79.899 Other long term (current) drug therapy
CPT/HCPCS: 76642; 99282; 99284

== ENCOUNTER → 2024-09-04 13:09 | Outpatient (BNV) | payer OTHER, SELFPAY | PROVIDERS: Emergency Provider Emergency Medicine; Visit Provider Radiology Diagnostic Radiology | DX: S20.101A Unspecified superficial injuries of breast, right breast, initial encounter (principal) | CPT/HCPCS: 76642 ==

== ENCOUNTER 2025-05-09 12:31 | Emergency (ER) | payer MEDICAID, SELFPAY ==
[2025-05-09 13:13] VITALS: BP 129/60; PULSE 71; RESP 16; TEMP 36.4; O2SAT 100
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
[2025-05-09 13:49] VITALS: BP 129/60; PULSE 71; RESP 16; TEMP 36.4; O2SAT 100
--- OUTSIDE RECORDS SUMMARY | 2025-05-09 18:15 | XMS_ITS | Clinical Summary ---
Author Organization [email or web address] Address [address] [place] [address] [address] [place] [address] Care Team Providers Care Clammer Name Role Phone Unavailable Primary Care Provider Unavailabl e Social History Tobacco Use Types Packs/Day Years Used Date Smoking Tobacco: Never Assessed Comments Unknown Sex and Gender Information Value Date Recorded Sex Assigned at Female 06/14/2022 10:16 AM EDT Legal Sex Female 10:16 AM EDT Gender Identity Female 06/14/2022 10:16 AM EDT Sexual Orientation Straight 06/14/2022 10 :16 AM EDT Plan of Treatment Health Maintenance Due Date Last Done Comments Depression Screening 1997 HIV Screening 1997 Lipid Panel 1997 Disability Screening 1997 Alcohol/Substance Use Screening 2009 Tobacco Screening 2009 Family Planning (PISQ) 2012 Hepatitis C Screening 2015 Pap Smear 2018 COVID-19 Vaccine ( season) 2025 01/08/2021, 12/11/2020 Influenza Vaccine (#1) 2025 9, 08/31/2013, 06/27/2012, Additional history exists DTaP/Tdap/Td Vaccines (9 - Td or Tdap) 07/06/2029 07/06/2019, 01/14/2017, 05/15/2008, Additional history exists Zoster Vaccines (1 of 2) 2047 RSV Patients and Patients Aged 60 years or older (1 - 1-dose 75+ series) 2072 Hepatitis B Vaccines Completed 01/01/1998, 1997, 1997 HIB Vaccines Completed 07/02/1998, 09/16, 1997, Additional history exists Pneumococcal Vaccine: Pediatrics (0 to 5 Years) and At-Risk Patients (6 to 49) Years Aged Out 10/19/2000 No longer eligible based on patient's age to complete this topic IPV Vaccines Completed 05/05/2001, 03/15, 1997, Additional history exists HPV Vaccines Completed 06/17/2009, 0 08/2007, 02/09/2007 Hepatitis A Vaccines Completed 08/31/2013, 06/19/20 10 Meningococcal Vaccine Completed 10/22/2014, 008 Meningococcal B Vaccine Aged Out No l onger eligible based on patient's age to complete this topic RSV under 20 months Aged Out No longe r eligible based on patient's age to complete this topic Rotavirus Vaccines Aged Out No longer eligible based on patient's age to complete this topic
== END 2025-05-09 13:49 | disposition home or self-care (01) ==
PROVIDERS: Emergency Provider Emergency Medicine; PCP Pediatrics
DX: T78.1XXA Other adverse food reactions, not elsewhere classified, initial encounter (principal); R20.2 Paresthesia of skin; X58.XXXA Exposure to other specified factors, initial encounter; Z79.899 Other long term (current) drug therapy
CPT/HCPCS: 99282; 99283

== ENCOUNTER 2025-05-15 08:58 | Emergency (ER) | payer MEDICAID, SELFPAY ==
--- NOTE | ~2025-05-15 | CT_ITS ---
EXAMINATION: CT ABDOMEN AND PELVIS WITH CONTRAST CLINICAL INFORMATION: Right lower quadrant pain COMPARISON: June 26, 2024 TECHNIQUE: Multidetector volumetric images were obtained from the superior aspect of the liver through the pubic symphysis following administration 85 mL of Omnipaque 350 intravenous contrast. Sagittal and coronal reformatted images were obtained on the technologist's workstation. Oral contrast: No This CT examination was performed using dose optimization techniques as appropriate, variously including the following: *Automated exposure control *Adjustment of mA and/or kV according to patient size (this includes techniques or standardized protocols for targeted exams where dose is matched to indication/reason for exam; i.e. extremities or head) *Use of iterative reconstruction technique FINDINGS: LUNG BASES: The visualized lung bases are unremarkable. LIVER, GALLBLADDER, AND BILIARY TREE: Liver demonstrates mildly decreased density. The gallbladder is unremarkable with no evidence of radiopaque gallstones, gallbladder wall thickening, or obvious pericholecystic inflammatory changes. PANCREAS: Unremarkable. SPLEEN: Unremarkable. ADRENAL GLANDS: Unremarkable. KIDNEYS AND URETERS: The kidneys are normal in size, shape, and attenuation. No hydronephrosis, hydroureter, or calculi seen. No perinephric stranding. BLADDER: Mostly decompressed and not well demonstrated. GASTROINTESTINAL TRACT: Short segment of the appendix is visualized. It is partially obscured by adjacent small bowel. It does not appear fluid-filled or thick-walled. There is no adjacent fat stranding. Terminal ileum is unremarkable. There is moderate stool in the rectum. ABDOMINAL WALL: There is an umbilical hernia is widely patent containing adipose tissue LYMPH NODES: Normal. VASCULAR: Unremarkable. PELVIC VISCERA: There is a mature follicle in the left ovary with a crenulated margin. OSSEOUS STRUCTURES: Unremarkable. CT/CT abdomen pelvis w IV con IMPRESSION: Mild changes consistent with hepatic steatosis. Umbilical hernia contains fat. Fleischner guidelines were followed. Electronically signed by: Morris Mcghee MD 05/15/2025 11:09 AM EDT
[2025-05-15 09:11] VITALS: BP 118/76; PULSE 80; RESP 15; TEMP 36.9; O2SAT 98; BMI 33.2
--- NOTE | 2025-05-15 09:11 | ED_ITS ---
HPI - Abdominal Pain General Chief Complaint: Abdominal Pain Stated Complaint: Abd pain 5 days Time Seen by Provider: 05/15/25 09:03 Source: patient Mode of arrival: ambulatory Limitations: no limitations History of Present Illness ED Provider: TRISTA KWOK PA-C HPI narrative: 30 yo F with PMH of chronic constipation presents to the ED with abdominal pain and diarrhea x5 days. Abdominal pain is diffuse in nature. No radiation. Tolerating her normal PO intake. She has mild nausea without vomiting. Denies melena or other stool discoloration. No prior abd surgeries. No recent abx or travel. Denies fevers/chills, chest pain, sob, back pain, flank pain, urinary sx. 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 Related Data Previous Rx's ?Medication ?Instructions ?Recorded ondansetron 4 mg disintegrating 4 mg PO Q8H 3 days #9 tabs 11/10/21 tablet cephalexin 500 mg capsule 500 mg PO TID #10 caps 12/11 prenat.vits,chandler,[id number] 1 tab PO DAILY #30 tabs 12/11/21 bisacodyl 10 mg rectal suppository 10 mg TN DAILY PRN constipation 10/24/22 (Laxative (bisacodyl)) #12 ea polyethylene glycol 3350 17 gram 17 g PO DAILY #30 ea 10/24/22 oral powder packet (Miralax) sennosides 8.6 mg tablet (senna) 8.6 mg PO BEDTIME #20 tabs 10/24/22 doxycycline monohydrate 100 mg 100 mg PO BID 7 days #1 4 caps 11/09/22 capsule fluconazole 150 mg tablet 150 mg PO Q72H 2 doses #2 ta bs 11/09/22 (Diflucan) valacyclovir 1 gram tablet 1,000 mg PO BID #20 tabs metronidazole 500 mg tablet 500 mg PO BID 7 days #14 t abs 11/12/22 ondansetron 4 mg disintegrating 4 mg PO Q6H #14 tabs 0 11/18/23 tablet azithromycin 250 mg tablet 250 mg PO DAILY 4 days #4 t abs 06/26/24 cefuroxime axetil 500 mg tablet 500 mg PO BID #20 tabs 06/26/24 ibuprofen 400 mg tablet 400 mg PO Q6H PRN pain #14 t abs 06/26/24 ondansetron 4 mg disintegrating 4 mg PO Q12H PRN nause a and 05/15/25 tablet vomiting 5 days #10 tabs Allergies Allergy/AdvReac Type Severity Reaction Status Date / Time banana (BANANA) Allergy Severe ANAPHYLAXIS Verified 05/15/25 09:17 rissa (RISSA) Allergy Mild HIVES Verified 05/15/25 09:17 pineapple (PINEAPPLE) Allergy Mild HIVES Verified 05/15/25 09:17 PEANUT BUTTER Allergy Severe ANAPHYLAXIS Uncoded 05/15/25 09:17 pineapple, rissa, banana Allergy Unknown hives Uncoded 05/15/25 09:17 Review of Systems Review of Systems Yes all other systems are reviewed and are negative [facility] Past Medical History Attestation statement: The following information was validated with the patient. Source: old records reviewed Medical History No known health problems Social History Social History Use of substances other than those prescribed or required for medical reasons: No Substance Use Type: Marijuana Advance Directives: No Advance Directives Information Provided: No Physical Exam ED Vital Signs: Vital Signs - 24 hr 05/15/25 09:11 05/15/25 09:19 05/15/25 10:28 Temperature 98.5 F 98.5 F Pulse Rate 80 80 69 Respiratory Rate 15 15 16 Blood Pressure 118/76 118/76 106/51 L Pulse Oximetry 98 98 98 Oxygen Delivery Method Room Air Room Air Room Air BMI result Body Mass Index 33.2 vital signs stable General: Well appearing, in no acute distress. Skin: Warm, dry, intact. No rashes or lesions. Head: Normocephalic, atraumatic. EENT: Hearing is intact b/l. Conjunctiva clear. Sclera is anicteric. PERRLA. EOM intact. Moist mucous membranes.? Neck: Supple without LAD Cardiac: Chest wall symmetric. RRR Lungs: Normal respiratory effort without accessory muscle use. CTA bilaterally Abdomen: obese, soft, nondistended, diffusely tender to palpation, more so to the right lower quadrant. No guarding or rebound tenderness. Negative Rovsing sign. Negative Phan's sign. Back: No midline spinous or paraspinal tenderness. No step off deformity. Ext: Upper and lower extremities atraumatic, without tenderness, deformity, swelling or erythema Neuro: AOx3. Normal speech. Ambulating with steady gait Course Course Course Narrative: CBC without leukocytosis.? No left shift. microcytic anemia, H&H above transfusion threshold and around baseline when compared to priors. No acute electrolyte abnormality requiring intervention. No LYNDSAY. Random glucose 117, no gap. Liver function around baseline. lipase wnl, beta quant undetectable. Urine without infection. CT abdomen without acute abnormality. > no episodes of diarrhea while in ed. patient feels well, is tolerating PO. Will dc home w/ supportive treatment.?Patient has remained stable throughout ED visit today. Discussed worrisome signs and symptoms and when to return to the ED. All questions answered at this time. Patient is agreeable with disposition and stable for discharge. Medical Decision Making Medical Decision Making [facility] Narrative: 30 yo F with PMH of chronic constipation presents to the ED with abdominal pain and diarrhea x5 days. vital signs stable, afebrile. she is well appearing and in NAD. on exam, obese, soft, nondistended, diffusely tender to palpation, more so to the right lower quadrant. No guarding or rebound tenderness. Negative Rovsing sign. Negative Phan's sign. Differential diagnoses: appendicitis, UTI, IUP, constipation, gastroenteritis, gastritis, GERD Abdominal exam without peritoneal signs. No evidence of acute abdomen at this time. Well appearing. Low suspicion for acute hepatobiliary disease (including acute cholecystitis), acute infectious processes (pneumonia, hepatitis, pyelonephritis, PID, TOA), vascular catastrophe, bowel obstruction or viscus perforation, ovarian cyst/ rupture/ torsion, ectopic. Presentation not consistent with other acute, emergent causes of abdominal pain at this time. Plan: labs, UA, CT AP, pain control, fluids, serial reassessment Differential Diagnosis Differential Diagnoses: The differential diagnosis associated with the presentation includes as above. Admission/Observation not indicated Lab Data [facility] Lab Attestation statement: I reviewed the patient's lab results. As above 05/15/25 09:49 05/15/25 09:49 Labs: Lab Results 05/15/25 05/15/25 Range/Units 09:49 10:31 WBC 10.5 (4.8-10.8) X10*3/uL RBC 4.21 (4.20-5.50) X10*6/uL Hgb 9.9 L (12.0-16.0) g/dl Hct 31.3 L (37.0-47.0) % MCV 74.3 L (80.0-98.0) fL MCH 23.5 L (27.0-33.0) pg MCHC 31.6 (31.0-35.0) g/dl RDW 16.9 H (11.0-16.0) % Plt Count 301 (160-400) X10*3/uL MPV 11.3 (9.4-12.3) fL Immature Gran % (Auto) 0.6 H (0.0-0.4) % Neut % (Auto) 67.3 (45-73) % Lymph % (Auto) 23.4 (20-40) % Richardson % (Auto) 6.9 (2-11) % Eos % (Auto) 1.3 (0-4) % Baso % (Auto) 0.5 (0-2) % Lymph # (Auto) 2.5 (1.2-4.9) X10*3/uL Richardson # (Auto) 0.7 (0.1-1.2) X10*3/uL Eos # (Auto) 0.1 (0.0-0.4) X10*3/uL Baso # (Auto) 0.1 (0.0-0.2) X10*3/uL Abs Immat Gran (auto) 0.06 H (0.00-0.03) X10*3/uL Absolute Neuts (auto) 7.0 (2.0-8.3) x10*3/uL Absolute Nucleated RBC 0.000 (0.0-0.012) X10*3/uL Nucleated RBC % (auto) 0.0 (0.0-0.2) /100WBC Sodium 139 (135-145) mmol/L Potassium 3.9 (3.3-5.1) mmol/L Chloride 108 (96-108) mmol/L Carbon Dioxide 25 (22-29) mmol/L Anion Gap 10 L (12-20) BUN 14 (9-16) mg/dL Creatinine 0.72 (0.5-1.4) mg/dL Estim Creat Clear Calc 102.3 Estimated GFR > 60 Random Glucose 117 H (60-115) mg/dL Calcium 8.9 (8.4-10.2) mg/dL Magnesium 2.1 (1.6-2.6) mg/dL Total Bilirubin 0.4 (0.0-1.0) mg/dL AST 27 (5-31) U/L ALT 30 (0-31) U/L Alkaline Phosphatase 127 H (39-117) U/L Total Protein 7.2 (6.5-8.0) g/dL Albumin 4.3 (3.5-5.0) g/dL Lipase 23 (8-78) U/L Beta HCG, Quant < 2 mIU/mL Urine Color Yellow Urine Appearance Clear Urine pH 6.0 (5.0-9.0) Ur Specific [place] >= 1.030 H (1.005-1.025) Urine Protein Negative (Neg-Trace) mg/dL Urine Glucose (UA) Negative (Negative) mg/dL Urine Ketones Negative (Negative) mg/dL Urine Blood Negative (Negative) Urine Nitrite Negative (Negative) Ur Leukocyte Esterase Small (1+) H (Negative) Urine RBC 0-2 (0-2) /HPF Urine WBC 11-20 H (0-5) /HPF Ur Squamous Epith Cells 6-10 (0-2) /HPF Urine Bacteria 1+ (None Seen) Hyaline Casts 0-2 (0-2) /LPF Stl C. cayetanensis PCR Not Detected (Not Detect.) Stool Rotavirus A PCR Not Detected (Not Detect.) Stl Adenov F 40/41 PCR Not Detected (Not Detect.) Stool Astrovirus (PCR) Not Detected (Not Detect.) Stool Campylobacter PCR Not Detected (Not Detect.) Stool Cryptosporidium PCR Not Detected (Not Detect.) Stl Sh Tox Pr E STEC PCR Not Detected (Not Detect.) Stool E coli O157 PCR Not applicable (Not Detect.) Stl Enterotoxigenic E PCR Not Detected (Not Detect.) Stool EPEC (PCR) Not Detected (Not Detect.) Stool EAEC (PCR) Not Detected (Not Detect.) Stl E. histolytica PCR Not Detected (Not Detect.) Stool Giardia Lamblia PCR Not Detected (Not Detect.) Stl P. shigelloides PCR Not Detected (Not Detect.) Stool Salmonella PCR Not Detected (Not Detect.) Stool Sapovirus (PCR) Not Detected (Not Detect.) Stl Shigella/EIEC PCR Not Detected (Not Detect.) St Y.enterocolitica PCR Not Detected (Not Detect.) Stool Vibrio (PCR) Not Detected (Not Detect.) Stl Vibrio cholerae PCR Not Detected (Not Detect.) Stl Norovirus GI/GII PCR Not Detected (Not Detect.) COVID-19 (MAGUI) Negative (Negative) COVID-19 Clin Com See Note Influenza Type A (PRINCESS) Negative (Negative) Influenza Type B (PRINCESS) Negative (Negative) Influenza A & B Note See Note Independent Interpretation I performed an independent interpretation of an: CT Scan Interpretation: CT abdomen/pelvis showing constipation, no bowel obstruction Radiology Impression Discussion of test interpretation with radiology: I have reviewed the radiologist's reading. Radiologist Impression: Procedure(s): CT abdomen pelvis w IV con Accession Number(s): [id number] cc: Abhilash Conrad MD; Trista Kwok~ Report Number: [id number]: Total DLP = 602.00 mGy-cm Reason for Exam: RLQ abd pain r/o appe EXAMINATION: CT ABDOMEN AND PELVIS WITH CONTRAST CLINICAL INFORMATION: Right lower quadrant pain COMPARISON: June 26, 2024 TECHNIQUE: Multidetector volumetric images were obtained from the superior aspect of the liver through the pubic symphysis following administration 85 mL of Omnipaque 350 intravenous contrast. Sagittal and coronal reformatted images were obtained on the technologist's workstation. Oral contrast: No This CT examination was performed using dose optimization techniques as appropriate, variously including the following: *Automated exposure control *Adjustment of mA and/or kV according to patient size (this includes techniques or standardized protocols for targeted exams where dose is matched to indication/reason for exam; i.e. extremities or head) *Use of iterative reconstruction technique FINDINGS: LUNG BASES: The visualized lung bases are unremarkable. LIVER, GALLBLADDER, AND BILIARY TREE: Liver demonstrates mildly decreased density. The gallbladder is unremarkable with no evidence of radiopaque gallstones, gallbladder wall thickening, or obvious pericholecystic inflammatory changes. PANCREAS: Unremarkable. SPLEEN: Unremarkable. ADRENAL GLANDS: Unremarkable. KIDNEYS AND URETERS: The kidneys are normal in size, shape, and attenuation. No hydronephrosis, hydroureter, or calculi seen. No perinephric stranding. BLADDER: Mostly decompressed and not well demonstrated. GASTROINTESTINAL TRACT: Short segment of the appendix is visualized. It is partially obscured by adjacent small bowel. It does not appear fluid-filled or thick-walled. There is no adjacent fat stranding. Terminal ileum is unremarkable. There is moderate stool in the rectum. ABDOMINAL WALL: There is an umbilical hernia is widely patent containing adipose tissue LYMPH NODES: Normal. VASCULAR: Unremarkable. PELVIC VISCERA: There is a mature follicle in the left ovary with a crenulated margin. OSSEOUS STRUCTURES: Unremarkable. CT/CT abdomen pelvis w IV con IMPRESSION: Mild changes consistent with hepatic steatosis. Umbilical hernia contains fat. Fleischner guidelines were followed. Electronically signed by: Morris Mcghee MD 05/15/2025 11:09 AM EDT RP External Record Review External record reviewed: Inpatient record, Office record and Outpatient record Social Determinants Patient?s care significantly limited by Social Determinants of Health including: Other Social Determinant of Health Medications Administered Discontinued Medications Generic Name Dose Route Start Last Admin Trade Name Freq PRN Reason Stop Dose Admin Sodium Chloride 1,000 mls @ 999 mls/hr 05/15/25 11:00 05/15/25 13:00 Ns IV 05/15/25 12:00 Infused .Q1H1M MANJINDER Infusion Iohexol 100 ml 05/15/25 10:38 05/15/25 10:42 Iohexol 350 Mg/Ml 100 Ml Infus..Btl IV 05/15/25 10:39 85 ml ONCE ONE Administration Ketorolac Tromethamine 15 mg 05/15/25 10:47 05/15/25 11:35 Ketorolac Tromethamine 15 Mg/Ml Vial IVPUSH 05/15/25 10:48 15 mg ONCE ONE Administration Ondansetron HCl 4 mg 05/15/25 10:47 05/15/25 11:35 Ondansetron Hcl 4 Mg/2 Ml Vial IVPUSH 05/15/25 10:48 4 mg ONCE ONE Administration Critical Care Time Critical Care Time Critical Care Time: No Discharge Plan Discharge Clinical Impression: Abdominal pain Patient Disposition: Home, Self-Care Instructions: Abdominal Pain (ED) Additional Instructions: You were evaluated in the ED today for abdominal pain and diarrhea. Your work up is reassuring. Your urine shows some bacteria however I feel this is just contamination as you are asymptomatic. We will call you when cultures result if you require treatment with antibiotics. Your stool sample has been sent to the lab to check for bacteria/viruses. You will recive a call with any positive results. Your symptoms are most consistent with a viral stomach bug, also known as gastroenteritis.? The treatment for this is supportive care The recommendation is rest and lots of oral hydration.? For the next 24 hours, stick to a XOCHITL diet (bananas rice, applesauce, tea, and toast) Zofran is an anti-nausea medication. This has been sent to your pharmacy for you to take as needed for nausea.? You can also try over the counter Pepto Bismol or Imodium as needed for upset stomach and diarrhea.? Follow up with your primary care provider this week. If you develop new or worsening symptoms call 911 or come back to the ER for further evaluation. Incidental findings on CT scan as discussed: CT abdomen pelvis w IV con IMPRESSION: Mild changes consistent with hepatic steatosis. Umbilical hernia contains fat. Prescriptions: New ondansetron 4 mg tablet,disintegrating 4 mg PO Q12H PRN (Reason: nausea and vomiting) 5 Days Qty: 10 0RF No Action prenat.vits,chandler,[id number] Tablet 1 tab PO DAILY Qty: 30 0RF cephalexin 500 mg capsule 500 mg PO TID Qty: 10 0RF ondansetron 4 mg tablet,disintegrating 4 mg PO Q8H 3 Days Qty: 9 0RF bisacodyl [Laxative (bisacodyl)] 10 mg suppository 10 mg TN DAILY PRN (Reason: constipation) Qty: 12 0RF polyethylene glycol 3350 [Miralax] 17 gram powder in packet 17 g PO DAILY Qty: 30 0RF sennosides [senna] 8.6 mg tablet 8.6 mg PO BEDTIME Qty: 20 0RF ondansetron 4 mg tablet,disintegrating 4 mg PO Q6H Qty: 14 0RF cefuroxime axetil 500 mg tablet 500 mg PO BID Qty: 20 0RF azithromycin 250 mg tablet 250 mg PO DAILY 4 Days Qty: 4 0RF Rx Instructions: start on day 2 of therapy ibuprofen 400 mg tablet 400 mg PO Q6H PRN (Reason: pain) Qty: 14 0RF fluconazole [Diflucan] 150 mg tablet 150 mg PO Q72H Qty: 2 0RF valacyclovir 1 gram tablet 1,000 mg PO BID Qty: 20 0RF doxycycline monohydrate 100 mg capsule 100 mg PO BID 7 Days Qty: 14 0RF metronidazole 500 mg tablet 500 mg PO BID 7 Days Qty: 14 0RF Referrals: Abhilash Conrad MD [Primary Care Provider, Medical] Stand Alone Forms: Work/School Release Interventions: ED Discharge Assessment Last Done: 05/15/25 12:59 Discharge Date/Time: 05/15/25 12:59 Print Language: Venezuelan
[2025-05-15 09:19] VITALS: BP 118/76; PULSE 80; RESP 15; TEMP 36.9; O2SAT 98
[2025-05-15 09:57] LABS: MANUAL DIFF FLAG NO
[2025-05-15 09:59] LABS: Hematocrit 31.3 % (37.0-47.0); Hemoglobin 9.9 g/dl (12.0-16.0); Imm Gran Abs Auto 0.06 X10*3/uL (0.00-0.03); Imm Gran Pct Auto 0.6 % (0.0-0.4); Lymphocytes Absolute Auto 2.5 X10*3/uL (1.2-4.9); Mean Corpuscular HGB Conc 31.6 g/dl (31.0-35.0); Mean Corpuscular Hemoglobin 23.5 pg (27.0-33.0); Mean Corpuscular Volume 74.3 fL (80.0-98.0); NRBC Abs Auto 0.000 X10*3/uL (0.0-0.012); NRBC Pct Auto 0.0 /100WBC (0.0-0.2); Platelet Count 301 X10*3/uL (160-400); Red Blood Count 4.21 X10*6/uL (4.20-5.50); White Blood Count 10.5 X10*3/uL (4.8-10.8)
[2025-05-15 10:13] LABS: COVID-19 Test Negative (Negative); IDNOW Serial# 55D5AD1C
[2025-05-15 10:20] LABS: IDNOW Serial# 58CA691E; Influenza B2 Negative (Negative)
[2025-05-15 10:24] LABS: Alanine Aminotransferase 30 U/L (0-31); Albumin Level 4.3 g/dL (3.5-5.0); Alkaline Phosphatase 127 U/L (39-117); Anion Gap 10 (12-20); Aspartate Amino Transferase 27 U/L (5-31); Blood Urea Nitrogen 14 mg/dL (9-16); Calcium 8.9 mg/dL (8.4-10.2); Carbon Dioxide 25 mmol/L (22-29); Chloride 108 mmol/L (96-108); Creatinine Clr Calc Pharmacy 102.3; Estimated Glomerular Filt Rate > 60; Lipase 23 U/L (8-78); Magnesium 2.1 mg/dL (1.6-2.6); Potassium 3.9 mmol/L (3.3-5.1); Sodium 139 mmol/L (135-145); Total Protein 7.2 g/dL (6.5-8.0)
[2025-05-15 10:28] VITALS: BP 106/51; PULSE 69; RESP 16; O2SAT 98
[2025-05-15 10:39] LABS: Appearance Urine Clear; Glucose Urine UA Negative (Negative); PH 6.0 (5.0-9.0); Specific Gravity - Urine >= 1.030 (1.005-1.025); UMIC TRIGGER UACC YES
[2025-05-15 10:42] LABS: UACC Culture Trigger YES
[2025-05-15] MEDS: iohexoL 350 MG/ML 100 ML INFUS..BTL IV (10:42)
[2025-05-15 12:03] LABS: E. coli EAEC Not Detected (Not Detect.); E. coli EPEC Not Detected (Not Detect.); E. coli ETEC Not Detected (Not Detect.); E. coli STEC Not Detected (Not Detect.); Shigella sp./EIEC Not Detected (Not Detect.)
[2025-05-15 12:42] VITALS: BP 150/74; PULSE 80; RESP 15; O2SAT 97
[2025-05-15 12:59] VITALS: BP 150/74; PULSE 80; RESP 15; TEMP 36.6; O2SAT 97
== END 2025-05-15 12:59 | disposition home or self-care (01) ==
PROVIDERS: Physician Assistant Medical; Emergency Provider Emergency Medicine; PCP Pediatrics
DX: R10.31 Right lower quadrant pain (principal); R19.7 Diarrhea, unspecified; K59.00 Constipation, unspecified; Z03.818 Encounter for observation for suspected exposure to other biological agents ruled out
CPT/HCPCS: 74177; 80053; 81001; 83690; 83735; 84702; 85025; 87086; 87502; 87507; 87635; 96361; 96374; 96375; 99284; J1885; J2405; Q9967

== ENCOUNTER → 2025-05-15 10:05 | Outpatient (BNV) | payer MEDICAID, SELFPAY | PROVIDERS: Emergency Provider Emergency Medicine; PCP Pediatrics; Visit Provider Radiology Diagnostic Radiology | DX: K42.9 Umbilical hernia without obstruction or gangrene (principal) | CPT/HCPCS: 74177 ==